=== PATIENT | female | born 1960 | race Caucasian/White ===

== ENCOUNTER 2016-09-19 12:19 | Emergency (ER) | payer OTHER ==
[~2016-09-19] VITALS: Ht 170.2 cm; Wt 90.7 kg
[2016-09-19] MEDS ORDERED: methylPREDNISolone INJ 125 MG/2 ML VIAL (J2930) As Ordered ONE (13:21)
[2016-09-19] MEDS ORDERED: IPRATROPIUM 0.5MG/ALBUTEROL 2.5MG INH SOL UD 3ML (DUONEB)(J7620) As Ordered ONE (13:26)
--- NOTE | 2016-09-19 13:38 | REP ---
Chest x-ray: Two views. History: Shortness of breath. . Comparison study: August 14, 2016 . Findings: The lungs are well inflated and free of infiltrate. The pleural angles are sharp. The heart size is normal. Pulmonary vasculature is not increased. No significant bony abnormality is seen. Impression: Negative chest x-ray. Signed by Abebe Plummer MD 09/19/2016 01:30 P
[2016-09-19 14:11] LABS: BASO # 0.2 K/mm3 (0.0-0.2); EOS # 0.4 K/mm3 (0.0-0.50); EOS % 4.1 % (0.0-3.0); LARGE UNSTAINED CELL # 0.3 K/mm3 (0.0-0.4); LARGE UNSTAINED CELL % 3.3 % (0.0-4.0); MEAN CORPUSCULAR HEMOGLOBIN 30.1 pg (27.0-33.0); MEAN CORPUSCULAR HGB CONC 33.9 g/dl (32.0-36.5); MEAN CORPUSCULAR VOLUME 88.6 fl (80.0-96.0); MONO # 0.5 K/mm3 (0.0-0.8); MONO % 5.9 % (0.0-5.0); NEUTROPHILS # 4.5 K/mm3 (1.8-7.7); NEUTROPHILS % 52.6 % (36.0-66.0); PLATELET COUNT, AUTOMATED 428 k/mm3 (150-450); WHITE BLOOD COUNT 8.5 K/mm3 (4.0-10.0)
[2016-09-19 14:29] LABS: ANION GAP 10 MEQ/L (8-16); BLOOD UREA NITROGEN 12 MG/DL (7-18); CARBON DIOXIDE LEVEL 28 MEQ/L (21-32); CHLORIDE LEVEL 105 MEQ/L (98-107); CREATININE FOR GFR 0.74 MG/DL (0.55-1.02); GLOMERULAR FILTRATION RATE > 60.0 (>51); GLUCOSE, FASTING 120 MG/DL (70-105); POTASSIUM SERUM 3.8 MEQ/L (3.5-5.1); SODIUM LEVEL 143 MEQ/L (136-145)
[2016-09-19] MEDS ORDERED: ADVAIR DISKUS 250/50 INH PWD INH ONE (14:30)
--- NOTE | 2016-09-19 15:01 | EDDOCDS ---
Nurse's Notes [facility] Name: Oxana Vazquez Age: 55 yrs Sex: Female : 1960 Arrival Date: 09/19/2016 Time: 12:19 Bed I2 / M2 Private MD: RHIANNON [facility] Diagnosis: Unspecified asthma with (acute) exacerbation;Shortness of breath;Wheezing Presentation: 09/19 12:25 Presenting complaint: Patient states: shortness of breath since during the past night. kr3 No longer has any medications because insurance will not pay. Adult Sepsis Screening: The patient does not have new or worsening altered mentation. Patient's respiratory rate is less than 22. Systolic blood pressure is greater than 100. Patient has a qSOFA score of 0- Negative Sepsis Screen. Suicide/Homicide risk assessment- the patient denies having any suicidal and/or homicidal ideations and does not present with any other emotional, behavioral or mental health complaints. 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 Transition of care: patient was not received from another setting of care. 12:25 Acuity: ANABEL Level 3 kr3 12:25 Method Of Arrival: Walkin/Carried/Asstd kr3 Triage Assessment: 12:28 General: Appears comfortable, Behavior is cooperative. Pain: Denies pain. HIV screening kr3 NA for this visit Offered previously. Neurological: Level of Consciousness is awake, alert. Respiratory: Onset: The symptoms/episode began/occurred today, Airway is patent Respiratory effort is labored, Reports shortness of breath. Derm: Skin is pink, warm & dry. 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 Effexor 150mg Oral daily 2. hydroxyzine HCl 25 mg Oral tab 1 tab 3 times per day 3. tramadol 50 mg Oral tab 1 tab every 4-6 hours as needed, at night 4. trazodone 100mg Oral once daily 5. Zyrtec 10 mg Oral tab 1 tab once daily 6. docusate 100mg twice a day - PMHx: Anxiety; Asthma; Depression; Hypertension; insomnia; Chronic Back pain; - PSHx: Tonsillectomy; Cholecystectomy; Hysterectomy; - Social history: Smoking status: Patient states former smoker of tobacco. No barriers to communication noted, The patient speaks fluent Spanish, Speaks appropriately for age. - Family history: Not pertinent. - : The pt / caregiver states he / she is not on anticoagulants. Home medication list is obtained from the patient. - Exposure Risk Screening:: None identified. Screenin:38 Screening information is obtained from the patient. Fall risk: No risks identified. dls Assistance ADL's: requires no assistance with activities of daily living. Abuse/DV Screen: The patient / caregiver reports he/she is: not in a situation that causes fear, pain or injury. Nutritional screening: No deficits noted. Advance Directives: Currently, there is no health care proxy. There is no active DNR order. There is no living will. There is no Power of Accounts Receivable Processor. Advance directive information has not previously been placed in an [facility] medical record. home support is adequate. Assessment: 13:45 General: Appears in no apparent distress, well developed, well nourished, well groomed, dls Behavior is cooperative. Pain: Denies pain. Neurological: No deficits noted. EENT: No deficits noted. Cardiovascular: No deficits noted. Respiratory: Airway is patent Respiratory effort is even, unlabored, Respiratory pattern is regular, symmetrical, Breath sounds are diminished bilaterally. GI: No deficits noted. : No deficits noted. Derm: No deficits noted. Musculoskeletal: No deficits noted. 13:48 Respiratory: Breath sounds with wheezes bilaterally. dls 14:37 General: Appears in no apparent distress, Behavior is appropriate for age, cooperative. mb9 Respiratory: Airway is patent Respiratory effort is even, unlabored, Breath sounds are diminished bilaterally. Vital Signs: 12:21 BP 152 / 89; Pulse 94; Resp 18 S; Temp 98.4(O); Pulse Ox 95% on R/A; Weight 90.72 kg gr2 (R); Height 5 ft. 7 in. (170.18 cm) (R); Pain 3/10; 14:48 BP 132 / 82; Pulse 81; Resp 18; Temp 97.8(O); Pulse Ox 97% on R/A; Pain 0/10; ct3 12:21 Body Mass Index 31.32 (90.72 kg, 170.18 cm) 2 Vitals: 12:21 Log In Time: September 19, 2016 at 12:21. gr2 ED Course: 12:20 Patient visited by Candice Rodrigez. gr2 12:20 Patient moved to Waiting gr2 12:21 [facility] is Private Physician. gr2 12:23 Patient visited by Candice Rodrigez. gr2 12:23 Patient moved to Pre RCE gr2 12:26 Triage Initiated kr3 12:55 Patient moved to Triage 2 ml6 13:02 [facility]. dt4 13:02 Sofya Cabrera MD is Attending Physician. dt4 13:02 Patient visited by Valeria Gray PA-C. dt4 13:14 Jyothi Eid, DANAY is Primary Nurse. jam1 13:14 Patient moved to I2 / M2 jam1 13:38 The patient / caregiver is instructed regarding the plan of care and ED course. Patient dls has correct armband on for positive identification. Bed in low position. Call light in reach. 13:38 Inserted saline lock: 20 gauge in left antecubital area. dls 13:38 No procedures done that require assistance. dls 14:01 Patient visited by Lizzy Canseco PCA. ct3 14:06 BNP Sent. dls 14:06 Basic Metabolic Profile Sent. dls 14:06 CBC with Diff Sent. dls 14:07 Chest, 2 View (pa\E\lat) Returned. EDMS 14:36 Patient visited by Perry Vasquez RN. mb9 14:56 Discontinued IV lock intact, bleeding controlled, pressure dressing applied, No dls redness/swelling at site. Administered Medications: 13:28 Drug: Albuterol-Ipratropium 3 ml [ipratropium-albuterol 0.5 mg-3 mg(2.5 mg base)/3 mL lb nebulization soln (3 mL)] Route: Inhalation; 13:38 Follow up: Response: Nebulizer completed; No significant change. lb 13:37 Drug: Solu-MEDROL 125 mg [Solu-Medrol 500 mg intravenous solution (125 mg)] Route: IVP; dls Site: left antecubital; 14:37 Drug: Advair Inhaler 250 mcg-50 mcg/Dose 1 inhalations Route: Inhalation; mb9 RT: 13:29 Initial Med Neb Given as ordered Patient was instructed and evaluated on procedure lb Patient tolerated procedure well without adverse effect. Respiratory: Breath sounds are clear bilaterally. in left posterior upper lobe, right posterior upper lobe, left posterior lower lobe, right posterior middle lobe and right posterior lower lobe. Order Results: Lab Order: CBC with Diff; SPEC'M 09/19/16 14:04 Test: WHITE BLOOD COUNT; Value: 8.5; Range: 4.0-10.0; Units: K/mm3; Status: F Test: RED BLOOD COUNT; Value: 4.90; Range: 4.00-5.40; Units: M/mm3; Status: F Test: HEMOGLOBIN; Value: 14.7; Range: 12.0-16.0; Units: g/dl; Status: F Test: HEMATOCRIT; Value: 43.4; Range: 36.0-47.0; Units: %; Status: F Test: MEAN CORPUSCULAR VOLUME; Value: 88.6; Range: 80.0-96.0; Units: fl; Status: F Test: MEAN CORPUSCULAR HEMOGLOBIN; Value: 30.1; Range: 27.0-33.0; Units: pg; Status: F Test: MEAN CORPUSCULAR HGB CONC; Value: 33.9; Range: 32.0-36.5; Units: g/dl; Status: F Test: RED CELL DISTRIBUTION WIDTH; Value: 13.0; Range: 11.5-14.5; Units: %; Status: F Test: PLATELET COUNT, AUTOMATED; Value: 428; Range: 150-450; Units: k/mm3; Status: F Test: NEUTROPHILS %; Value: 52.6; Range: 36.0-66.0; Units: %; Status: F Test: LYMPH %; Value: 32.0; Range: 24.0-44.0; Units: %; Status: F Test: MONO %; Value: 5.9; Range: 0.0-5.0; Abnormal: Above high normal; Units: %; Status: F Test: EOS %; Value: 4.1; Range: 0.0-3.0; Abnormal: Above high normal; Units: %; Status: F Test: BASO %; Value: 2.0; Range: 0.0-1.0; Abnormal: Above high normal; Units: %; Status: F Test: LARGE UNSTAINED CELL %; Value: 3.3; Range: 0.0-4.0; Units: %; Status: F Test: NEUTROPHILS #; Value: 4.5; Range: 1.8-7.7; Units: K/mm3; Status: F Test: LYMPH #; Value: 3.0; Range: 1.5-4.5; Units: K/mm3; Status: F Test: MONO #; Value: 0.5; Range: 0.0-0.8; Units: K/mm3; Status: F Test: EOS #; Value: 0.4; Range: 0.0-0.50; Units: K/mm3; Status: F Test: BASO #; Value: 0.2; Range: 0.0-0.2; Units: K/mm3; Status: F Test: LARGE UNSTAINED CELL #; Value: 0.3; Range: 0.0-0.4; Units: K/mm3; Status: F Lab Order: Basic Metabolic Profile; [facility]' 09/19/16 14:04 Test: GLUCOSE, FASTING; Value: 120; Range: 70-105; Abnormal: Above high normal; Units: MG/DL; Status: F Test: BLOOD UREA NITROGEN; Value: 12; Range: 7-18; Units: MG/DL; Status: F Test: CREATININE FOR GFR; Value: 0.74; Range: 0.55-1.02; Units: MG/DL; Status: F Test: GLOMERULAR FILTRATION RATE; Value: > 60.0; Range: >51; Status: F Test: SODIUM LEVEL; Value: 143; Range: 136-145; Units: MEQ/L; Status: F Test: POTASSIUM SERUM; Value: 3.8; Range: 3.5-5.1; Units: MEQ/L; Status: F Test: CHLORIDE LEVEL; Value: 105; Range: 98-107; Units: MEQ/L; Status: F Test: CARBON DIOXIDE LEVEL; Value: 28; Range: 21-32; Units: MEQ/L; Status: F Test: ANION GAP; Value: 10; Range: 8-16; Units: MEQ/L; Status: F Test: CALCIUM LEVEL; Value: 9.0; Range: 8.5-10.1; Units: MG/DL; Status: F Test Note: ; Units are mL/min/1.73 m2 Chronic Kidney Disease Staging per NKF: Stage I & II GFR >=60 Normal to Mildly Decreased Stage III GFR 30-59 Moderately Decreased Stage IV GFR 15-29 Severely Decreased Stage V GFR <15 Very Little GFR Left ESRD GFR <15 on RAD TECHNOLOGIST Lab Order: BNP; KO 09/19/16 14:04 Test: BRAIN NATRIURETIC PEPTIDE; Value: 17.6; Range: <100; Units: PG/ML; Status: F Radiology Order: Chest, 2 View (pa\E\lat) Test: Chest, 2 View (pa\E\lat) REASON FOR EXAMINATION: Shortness of Breath; Chest x-ray: Two views.; ; History: Shortness of breath. .; ; Comparison study: August 14, 2016 .; ; Findings: The lungs are well inflated and free of infiltrate. The pleural; angles are sharp. The heart size is normal. Pulmonary vasculature is not; increased. No significant bony abnormality is seen.; ; Impression:; ; Negative chest x-ray.; ; ; Signed by; Abebe Plummer MD 09/19/2016 01:30 P; Outcome: 14:47 Discharge ordered by Provider. dt4 14:57 Discharge Assessment: Patient awake, alert and oriented x 3. No cognitive and/or dls functional deficits noted. Patient verbalized understanding of disposition instructions. patient administered narcotics - no. The following High Risk Discharge criteria are identified: None. Discharged to home ambulatory. Condition: good Condition: stable. Discharge instructions given to patient, Instructed on discharge instructions, follow up and referral plans. medication usage, Demonstrated understanding of instructions, medications, Pt was receptive of discharge instructions/ teaching. Prescriptions given X 1. No special radiology studies were completed. Property sent home with patient. 15:00 Patient left the ED. dls Signatures: Dispatcher [employer] EDMS Jyothi Eid, DANAY RN dls Leticia Watts, SHELLAC POLISHER SHELLAC POLISHER jam1 Miranda Naranjo KathleenRN RN [id number] Varun Gary RN RN ml6 Lizzy Canseco, SHELLAC POLISHER SHELLAC POLISHER ct3 Candice Rodrigez gr2 Valeria Gray, PA-C PA-C dt4 Perry Vasquez,DANAY RN mb9 MTDD
--- NOTE | 2016-09-19 15:01 | EDDOCDS ---
Physician Documentation [facility] Name: Oxana Vazquez Age: 55 yrs Sex: Female : 1960 Arrival Date: 09/19/2016 Time: 12:19 Bed I2 / M2 Private MD: RHIANNON [facility] Disposition: 09/19/16 14:47 Discharged to Home/Self Care. Impression: Unspecified asthma with (acute) exacerbation, Shortness of breath, Wheezing. - Condition is Stable. - Discharge Instructions: Asthma, Adult, Shortness of Breath. - Prescriptions for Prednisone 20 mg Oral Tablet - take 3 tablets by ORAL route once daily for 5 days start on 09/20/16; 15 tablet. - Medication Reconciliation, Local Pharmacy Hours form. - Follow up: Emergency Department; When: As needed; Reason: Worsening of conditions. Follow up: Private Physician; When: 2 - 3 days; Reason: Wound/Symptom Recheck, Recheck today's complaints, Continuance of care. - Problem is new. - Symptoms have improved. Historical: - Allergies: NSAIDS (Non-Steroidal Anti-Inflammatory Drug); - Home Meds: 1. Effexor 150mg Oral daily 2. hydroxyzine HCl 25 mg Oral tab 1 tab 3 times per day 3. tramadol 50 mg Oral tab 1 tab every 4-6 hours as needed, at night 4. trazodone 100mg Oral once daily 5. Zyrtec 10 mg Oral tab 1 tab once daily 6. docusate 100mg twice a day - PMHx: Anxiety; Asthma; Depression; Hypertension; insomnia; Chronic Back pain; - PSHx: Tonsillectomy; Cholecystectomy; Hysterectomy; - Social history: Smoking status: Patient states former smoker of tobacco. No barriers to communication noted, The patient speaks fluent Canadian, Speaks appropriately for age. - Family history: Not pertinent. - : The pt / caregiver states he / she is not on anticoagulants. Home medication list is obtained from the patient. - Exposure Risk Screening:: None identified. 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 7 in. (170.18 cm) (R); Pain 3/10; 14:48 BP 132 / 82; Pulse 81; Resp 18; Temp 97.8(O); Pulse Ox 97% on R/A; Pain 0/10; ct3 12:21 Body Mass Index 31.32 (90.72 kg, 170.18 cm) gr2 MDM: 13:03 ECG WITH READING ER PHYS+CARDIAG ordered. EDMS 13:17 IV Saline Lock ordered. dt4 13:17 Solu-MEDROL 125 mg IVP once ordered. dt4 13:17 Albuterol-Ipratropium 3 ml Inhalation once ordered. dt4 13:17 Call Respiratory ordered. dt4 13:18 Call Respiratory complete. ct3 13:18 CBC with Diff Ordered. EDMS 13:18 Basic Metabolic Profile Ordered. EDMS 13:18 BNP Ordered. EDMS 13:18 Chest, 2 View (pa\E\lat) Ordered. EDMS 13:54 Advair Inhaler 250 mcg-50 mcg/Dose 1 inhalations Inhalation once ordered. dt4 Administered Medications: 13:28 Drug: Albuterol-Ipratropium 3 ml [ipratropium-albuterol 0.5 mg-3 mg(2.5 mg base)/3 mL lb nebulization soln (3 mL)] Route: Inhalation; 13:38 Follow up: Response: Nebulizer completed; No significant change. lb 13:37 Drug: Solu-MEDROL 125 mg [Solu-Medrol 500 mg intravenous solution (125 mg)] Route: IVP; dls Site: left antecubital; 14:37 Drug: Advair Inhaler 250 mcg-50 mcg/Dose 1 inhalations Route: Inhalation; mb9 Signatures: Dispatcher [employer] EDJyotih Fan RN RN dls Lisa Bruner RN RN kr3 Lizzy Canseco, MARY ANNE COLOR ARTIST ct3 Valeria Gray PA-C PALuizC dt4 Miranda Naranjo Michael RN mb9 MTDD
--- NOTE | 2016-09-19 19:18 | ECGEPIP ---
Stationary ECG Study [facility] - ED Test Date: 2016-09-19 Pat Name: KIM CAZARES Department: Room: - Gender: F Investment Representative: roberto : 1960 Requested By: JOSUE Ledesma PA-C Order Number: [id number] Reading MD: Pepe Grace Measurements Intervals [place] Rate: 89 P: 38 [place]: 148 QRS: 51 QRSD: 75 T: 60 QT: 377 QTc: 459 Interpretive Statements SINUS RHYTHM POSSIBLE LAE PRIOR INFERIOR INFARCT NO PRIORS Electronically Signed On 09-19-2016 19:18:32 EST by Pepe Grace
--- NOTE | 2016-09-21 16:01 | EDDOCDS ---
Physician Documentation [facility] Name: Oxana Vazquez Age: 55 yrs Sex: Female : 1960 Arrival Date: 09/19/2016 Time: 12:19 Bed I2 / M2 Private MD: RHIANNON [facility] Disposition: 09/19/16 14:47 Discharged to Home/Self Care. Impression: Unspecified asthma with (acute) exacerbation, Shortness of breath, Wheezing. - Condition is Stable. - Discharge Instructions: Asthma, Adult, Shortness of Breath. - Prescriptions for Prednisone 20 mg Oral Tablet - take 3 tablets by ORAL route once daily for 5 days start on 09/20/16; 15 tablet. - Medication Reconciliation, Local Pharmacy Hours form. - Follow up: Emergency Department; When: As needed; Reason: Worsening of conditions. Follow up: Private Physician; When: 2 - 3 days; Reason: Wound/Symptom Recheck, Recheck today's complaints, Continuance of care. - Problem is new. - Symptoms have improved. Historical: - Allergies: NSAIDS (Non-Steroidal Anti-Inflammatory Drug); - Home Meds: 1. Effexor 150mg Oral daily 2. hydroxyzine HCl 25 mg Oral tab 1 tab 3 times per day 3. tramadol 50 mg Oral tab 1 tab every 4-6 hours as needed, at night 4. trazodone 100mg Oral once daily 5. Zyrtec 10 mg Oral tab 1 tab once daily 6. docusate 100mg twice a day - PMHx: Anxiety; Asthma; Depression; Hypertension; insomnia; Chronic Back pain; - PSHx: Tonsillectomy; Cholecystectomy; Hysterectomy; - Social history: Smoking status: Patient states former smoker of tobacco. No barriers to communication noted, The patient speaks fluent Portuguese, Speaks appropriately for age. - Family history: Not pertinent. - : The pt / caregiver states he / she is not on anticoagulants. Home medication list is obtained from the patient. - Exposure Risk Screening:: None identified. 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 7 in. (170.18 cm) (R); Pain 3/10; 14:48 BP 132 / 82; Pulse 81; Resp 18; Temp 97.8(O); Pulse Ox 97% on R/A; Pain 0/10; ct3 12:21 Body Mass Index 31.32 (90.72 kg, 170.18 cm) gr2 MDM: 13:03 ECG WITH READING ER PHYS+CARDIAG ordered. EDMS 13:17 IV Saline Lock ordered. dt4 13:17 Solu-MEDROL 125 mg IVP once ordered. dt4 13:17 Albuterol-Ipratropium 3 ml Inhalation once ordered. dt4 13:17 Call Respiratory ordered. dt4 13:18 Call Respiratory complete. ct3 13:18 CBC with Diff Ordered. EDMS 13:18 Basic Metabolic Profile Ordered. EDMS 13:18 BNP Ordered. EDMS 13:18 Chest, 2 View (pa\E\lat) Ordered. EDMS 13:54 Advair Inhaler 250 mcg-50 mcg/Dose 1 inhalations Inhalation once ordered. dt4 15:10 [facility] Payment Agreement was scanned into [employer] and attached to record. lg 15:37 Financial registration complete. gjb 21:42 T-Sheet-- Draft Copy was scanned into [employer] and attached to record. klr 09/20 11:22 ECG/EKG was scanned into [employer] and attached to record. gb Administered Medications: 09/19 13:28 Drug: Albuterol-Ipratropium 3 ml [ipratropium-albuterol 0.5 mg-3 mg(2.5 mg base)/3 mL lb nebulization soln (3 mL)] Route: Inhalation; 13:38 Follow up: Response: Nebulizer completed; No significant change. lb 13:37 Drug: Solu-MEDROL 125 mg [Solu-Medrol 500 mg intravenous solution (125 mg)] Route: IVP; dls Site: left antecubital; 14:37 Drug: Advair Inhaler 250 mcg-50 mcg/Dose 1 inhalations Route: Inhalation; mb9 Signatures: Dispatcher [employer] EDMS Jyothi Eid RN RN dls Deneen iKm, Reg Reg gb Seth Fernandez, Reg Reg lg Lisa Bruner RN RN [id number] Lizzy Canseco, DIET TECH DIET TECH ct3 Valeria Gray, PALuizC PALuizC dt4 Wendy Uribe Kathie klr Bickel, Lindsay lb Belles, Michael RN mb9 The chart was reviewed and I authenticate all verbal orders and agree with the evaluation and treatment provided.Attachments: 15:10 [facility] Payment Agreement lg 21:42 T-Sheet-- Draft Copy klr 09/20 11:22 ECG/EKG gb Chart Complete MTDD
--- NOTE | 2016-09-21 16:01 | EDDOCDS ---
Physician Documentation [facility] Name: Oxana Vazquez Age: 55 yrs Sex: Female : 1960 Arrival Date: 09/19/2016 Time: 12:19 Bed I2 / M2 [facility] Disposition: 09/19/16 14:47 Discharged to Home/Self Care. Impression: Unspecified asthma with (acute) exacerbation, Shortness of breath, Wheezing. - Condition is Stable. - Discharge Instructions: Asthma, Adult, Shortness of Breath. - Prescriptions for Prednisone 20 mg Oral Tablet - take 3 tablets by ORAL route once daily for 5 days start on 09/20/16; 15 tablet. - Medication Reconciliation, Local Pharmacy Hours form. - Follow up: Emergency Department; When: As needed; Reason: Worsening of conditions. Follow up: Private Physician; When: 2 - 3 days; Reason: Wound/Symptom Recheck, Recheck today's complaints, Continuance of care. - Problem is new. - Symptoms have improved. Historical: - Allergies: NSAIDS (Non-Steroidal Anti-Inflammatory Drug); - Home Meds: 1. Effexor 150mg Oral daily 2. hydroxyzine HCl 25 mg Oral tab 1 tab 3 times per day 3. tramadol 50 mg Oral tab 1 tab every 4-6 hours as needed, at night 4. trazodone 100mg Oral once daily 5. Zyrtec 10 mg Oral tab 1 tab once daily 6. docusate 100mg twice a day - PMHx: Anxiety; Asthma; Depression; Hypertension; insomnia; Chronic Back pain; - PSHx: Tonsillectomy; Cholecystectomy; Hysterectomy; - Social history: Smoking status: Patient states former smoker of tobacco. No barriers to communication noted, The patient speaks fluent Swazi, Speaks appropriately for age. - Family history: Not pertinent. - : The pt / caregiver states he / she is not on anticoagulants. Home medication list is obtained from the patient. - Exposure Risk Screening:: None identified. 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 7 in. (170.18 cm) (R); Pain 3/10; 14:48 BP 132 / 82; Pulse 81; Resp 18; Temp 97.8(O); Pulse Ox 97% on R/A; Pain 0/10; ct3 12:21 Body Mass Index 31.32 (90.72 kg, 170.18 cm) gr2 MDM: 13:03 ECG WITH READING ER PHYS+CARDIAG ordered. EDMS 13:17 IV Saline Lock ordered. dt4 13:17 Solu-MEDROL 125 mg IVP once ordered. dt4 13:17 Albuterol-Ipratropium 3 ml Inhalation once ordered. dt4 13:17 Call Respiratory ordered. dt4 13:18 Call Respiratory complete. ct3 13:18 CBC with Diff Ordered. EDMS 13:18 Basic Metabolic Profile Ordered. EDMS 13:18 BNP Ordered. EDMS 13:18 Chest, 2 View (pa\E\lat) Ordered. EDMS 13:54 Advair Inhaler 250 mcg-50 mcg/Dose 1 inhalations Inhalation once ordered. dt4 15:10 [facility] Payment Agreement was scanned into [employer] and attached to record. lg 15:37 Financial registration complete. gjb 21:42 T-Sheet-- Draft Copy was scanned into [employer] and attached to record. klr 09/20 11:22 ECG/EKG was scanned into [employer] and attached to record. gb Administered Medications: 09/19 13:28 Drug: Albuterol-Ipratropium 3 ml [ipratropium-albuterol 0.5 mg-3 mg(2.5 mg base)/3 mL lb nebulization soln (3 mL)] Route: Inhalation; 13:38 Follow up: Response: Nebulizer completed; No significant change. lb 13:37 Drug: Solu-MEDROL 125 mg [Solu-Medrol 500 mg intravenous solution (125 mg)] Route: IVP; dls Site: left antecubital; 14:37 Drug: Advair Inhaler 250 mcg-50 mcg/Dose 1 inhalations Route: Inhalation; mb9 Signatures: Dispatcher [employer] EDMS Jyothi Eid RN RN dls Deneen Kim, Reg Reg gb Seth Fernandez, Reg Reg lg Lisa Bruner RN RN [id number] Lizzy Canseco, COLLAR STARCHER COLLAR STARCHER ct3 Valeria Gray, PALuizC PALuizC dt4 Wendy Uribe Kathie klr Bickel, Lindsay lb Belles, Michael RN mb9 The chart was reviewed and I authenticate all verbal orders and agree with the evaluation and treatment provided.Attachments: 15:10 [facility] Payment Agreement lg 21:42 T-Sheet-- Draft Copy klr 09/20 11:22 ECG/EKG gb Chart Complete MTDD
--- NOTE | 2016-09-21 16:01 | EDDOCDS ---
Nurse's Notes [facility] Name: Oxana Cazares Age: 55 yrs Sex: Female : 1960 Arrival Date: 09/19/2016 Time: 12:19 Bed I2 / M2 Private MD: RHIANNON [facility] Diagnosis: Unspecified asthma with (acute) exacerbation;Shortness of breath;Wheezing Presentation: 09/19 12:25 Presenting complaint: Patient states: shortness of breath since during the past night. kr3 No longer has any medications because insurance will not pay. Adult Sepsis Screening: The patient does not have new or worsening altered mentation. Patient's respiratory rate is less than 22. Systolic blood pressure is greater than 100. Patient has a qSOFA score of 0- Negative Sepsis Screen. Suicide/Homicide risk assessment- the patient denies having any suicidal and/or homicidal ideations and does not present with any other emotional, behavioral or mental health complaints. 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 Transition of care: patient was not received from another setting of care. 12:25 Acuity: ANABEL Level 3 kr3 12:25 Method Of Arrival: Walkin/Carried/Asstd kr3 Triage Assessment: 12:28 General: Appears comfortable, Behavior is cooperative. Pain: Denies pain. HIV screening kr3 NA for this visit Offered previously. Neurological: Level of Consciousness is awake, alert. Respiratory: Onset: The symptoms/episode began/occurred today, Airway is patent Respiratory effort is labored, Reports shortness of breath. Derm: Skin is pink, warm & dry. ILLUMINATOR: 12:28 LMP N/A - Hysterectomy kr3 Historical: - Allergies: NSAIDS (Non-Steroidal Anti-Inflammatory Drug); - Home Meds: 1. Effexor 150mg Oral daily 2. hydroxyzine HCl 25 mg Oral tab 1 tab 3 times per day 3. tramadol 50 mg Oral tab 1 tab every 4-6 hours as needed, at night 4. trazodone 100mg Oral once daily 5. Zyrtec 10 mg Oral tab 1 tab once daily 6. docusate 100mg twice a day - PMHx: Anxiety; Asthma; Depression; Hypertension; insomnia; Chronic Back pain; - PSHx: Tonsillectomy; Cholecystectomy; Hysterectomy; - Social history: Smoking status: Patient states former smoker of tobacco. No barriers to communication noted, The patient speaks fluent Mohawk, Speaks appropriately for age. - Family history: Not pertinent. - : The pt / caregiver states he / she is not on anticoagulants. Home medication list is obtained from the patient. - Exposure Risk Screening:: None identified. Screenin:38 Screening information is obtained from the patient. Fall risk: No risks identified. dls Assistance ADL's: requires no assistance with activities of daily living. Abuse/DV Screen: The patient / caregiver reports he/she is: not in a situation that causes fear, pain or injury. Nutritional screening: No deficits noted. Advance Directives: Currently, there is no health care proxy. There is no active DNR order. There is no living will. There is no Power of [place]. Advance directive information has not previously been placed in an [facility] medical record. home support is adequate. Assessment: 13:45 General: Appears in no apparent distress, well developed, well nourished, well groomed, dls Behavior is cooperative. Pain: Denies pain. Neurological: No deficits noted. EENT: No deficits noted. Cardiovascular: No deficits noted. Respiratory: Airway is patent Respiratory effort is even, unlabored, Respiratory pattern is regular, symmetrical, Breath sounds are diminished bilaterally. GI: No deficits noted. : No deficits noted. Derm: No deficits noted. Musculoskeletal: No deficits noted. 13:48 Respiratory: Breath sounds with wheezes bilaterally. dls 14:37 General: Appears in no apparent distress, Behavior is appropriate for age, cooperative. mb9 Respiratory: Airway is patent Respiratory effort is even, unlabored, Breath sounds are diminished bilaterally. Vital Signs: 12:21 BP 152 / 89; Pulse 94; Resp 18 S; Temp 98.4(O); Pulse Ox 95% on R/A; Weight 90.72 kg gr2 (R); Height 5 ft. 7 in. (170.18 cm) (R); Pain 3/10; 14:48 BP 132 / 82; Pulse 81; Resp 18; Temp 97.8(O); Pulse Ox 97% on R/A; Pain 0/10; ct3 12:21 Body Mass Index 31.32 (90.72 kg, 170.18 cm) 2 Vitals: 12:21 Log In Time: September 19, 2016 at 12:21. gr2 ED Course: 12:20 Patient visited by Candice Rodrigez. gr2 12:20 Patient moved to Waiting gr2 12:21 [facility] is Private Physician. gr2 12:23 Patient visited by Candice Rodrigez. gr2 12:23 Patient moved to Pre RCE gr2 12:26 Triage Initiated kr3 12:55 Patient moved to Triage 2 ml6 13:02 Valeria Gray PA-C is PHCP. dt4 13:02 Sofya Cabrera MD is Attending Physician. dt4 13:02 Patient visited by Valeria Gray PA-C. dt4 13:14 Jyothi Eid, DANAY is Primary Nurse. jam1 13:14 Patient moved to I2 / M2 jam1 13:38 The patient / caregiver is instructed regarding the plan of care and ED course. Patient dls has correct armband on for positive identification. Bed in low position. Call light in reach. 13:38 Inserted saline lock: 20 gauge in left antecubital area. dls 13:38 No procedures done that require assistance. dls 14:01 Patient visited by Lizzy Canseco PCA. ct3 14:06 BNP Sent. dls 14:06 Basic Metabolic Profile Sent. dls 14:06 CBC with Diff Sent. dls 14:07 Chest, 2 View (pa\E\lat) Returned. EDMS 14:36 Patient visited by Perry Vasquez RN. mb9 14:56 Discontinued IV lock intact, bleeding controlled, pressure dressing applied, No dls redness/swelling at site. 15:10 [place] [place] was scanned into [employer] and attached to record. lg 19:48 EKG-ADULT Returned. EDMS 21:42 T-Sheet-- Draft Copy was scanned into [employer] and attached to record. klr 09/20 11:22 ECG/EKG was scanned into [employer] and attached to record. gb Administered Medications: 09/19 13:28 Drug: Albuterol-Ipratropium 3 ml [ipratropium-albuterol 0.5 mg-3 mg(2.5 mg base)/3 mL lb nebulization soln (3 mL)] Route: Inhalation; 13:38 Follow up: Response: Nebulizer completed; No significant change. lb 13:37 Drug: Solu-MEDROL 125 mg [Solu-Medrol 500 mg intravenous solution (125 mg)] Route: IVP; dls Site: left antecubital; 14:37 Drug: Advair Inhaler 250 mcg-50 mcg/Dose 1 inhalations Route: Inhalation; mb9 RT: 13:29 Initial Med Neb Given as ordered Patient was instructed and evaluated on procedure lb Patient tolerated procedure well without adverse effect. Respiratory: Breath sounds are clear bilaterally. in left posterior upper lobe, right posterior upper lobe, left posterior lower lobe, right posterior middle lobe and right posterior lower lobe. Order Results: Lab Order: CBC with Diff; SPEC'M 09/19/16 14:04 Test: WHITE BLOOD COUNT; Value: 8.5; Range: 4.0-10.0; Units: K/mm3; Status: F Test: RED BLOOD COUNT; Value: 4.90; Range: 4.00-5.40; Units: M/mm3; Status: F Test: HEMOGLOBIN; Value: 14.7; Range: 12.0-16.0; Units: g/dl; Status: F Test: HEMATOCRIT; Value: 43.4; Range: 36.0-47.0; Units: %; Status: F Test: MEAN CORPUSCULAR VOLUME; Value: 88.6; Range: 80.0-96.0; Units: fl; Status: F Test: MEAN CORPUSCULAR HEMOGLOBIN; Value: 30.1; Range: 27.0-33.0; Units: pg; Status: F Test: MEAN CORPUSCULAR HGB CONC; Value: 33.9; Range: 32.0-36.5; Units: g/dl; Status: F Test: RED CELL DISTRIBUTION WIDTH; Value: 13.0; Range: 11.5-14.5; Units: %; Status: F Test: PLATELET COUNT, AUTOMATED; Value: 428; Range: 150-450; Units: k/mm3; Status: F Test: NEUTROPHILS %; Value: 52.6; Range: 36.0-66.0; Units: %; Status: F Test: LYMPH %; Value: 32.0; Range: 24.0-44.0; Units: %; Status: F Test: MONO %; Value: 5.9; Range: 0.0-5.0; Abnormal: Above high normal; Units: %; Status: F Test: EOS %; Value: 4.1; Range: 0.0-3.0; Abnormal: Above high normal; Units: %; Status: F Test: BASO %; Value: 2.0; Range: 0.0-1.0; Abnormal: Above high normal; Units: %; Status: F Test: LARGE UNSTAINED CELL %; Value: 3.3; Range: 0.0-4.0; Units: %; Status: F Test: NEUTROPHILS #; Value: 4.5; Range: 1.8-7.7; Units: K/mm3; Status: F Test: LYMPH #; Value: 3.0; Range: 1.5-4.5; Units: K/mm3; Status: F Test: MONO #; Value: 0.5; Range: 0.0-0.8; Units: K/mm3; Status: F Test: EOS #; Value: 0.4; Range: 0.0-0.50; Units: K/mm3; Status: F Test: BASO #; Value: 0.2; Range: 0.0-0.2; Units: K/mm3; Status: F Test: LARGE UNSTAINED CELL #; Value: 0.3; Range: 0.0-0.4; Units: K/mm3; Status: F Lab Order: Basic Metabolic Profile; [facility]' 09/19/16 14:04 Test: GLUCOSE, FASTING; Value: 120; Range: 70-105; Abnormal: Above high normal; Units: MG/DL; Status: F Test: BLOOD UREA NITROGEN; Value: 12; Range: 7-18; Units: MG/DL; Status: F Test: CREATININE FOR GFR; Value: 0.74; Range: 0.55-1.02; Units: MG/DL; Status: F Test: GLOMERULAR FILTRATION RATE; Value: > 60.0; Range: >51; Status: F Test: SODIUM LEVEL; Value: 143; Range: 136-145; Units: MEQ/L; Status: F Test: POTASSIUM SERUM; Value: 3.8; Range: 3.5-5.1; Units: MEQ/L; Status: F Test: CHLORIDE LEVEL; Value: 105; Range: 98-107; Units: MEQ/L; Status: F Test: CARBON DIOXIDE LEVEL; Value: 28; Range: 21-32; Units: MEQ/L; Status: F Test: ANION GAP; Value: 10; Range: 8-16; Units: MEQ/L; Status: F Test: CALCIUM LEVEL; Value: 9.0; Range: 8.5-10.1; Units: MG/DL; Status: F Test Note: ; Units are mL/min/1.73 m2 Chronic Kidney Disease Staging per NKF: Stage I & II GFR >=60 Normal to Mildly Decreased Stage III GFR 30-59 Moderately Decreased Stage IV GFR 15-29 Severely Decreased Stage V GFR <15 Very Little GFR Left ESRD GFR <15 on MGMT SPECIALIST Lab Order: BNP; SPEC'M 09/19/16 14:04 Test: BRAIN NATRIURETIC PEPTIDE; Value: 17.6; Range: <100; Units: PG/ML; Status: F Radiology Order: EKG-ADULT Test: EKG-ADULT REASON FOR EXAMINATION: Shortness of Breath; Stationary ECG Study; [facility] - ED; ; Test Date: 2016-09-19; Pat Name: OXANA CAZARES Department:; Room: -; Gender: F 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 .; ; Comparison study: August 14, 2016 .; ; Findings: The lungs are well inflated and free of infiltrate. The pleural; angles are sharp. The heart size is normal. Pulmonary vasculature is not; increased. No significant bony abnormality is seen.; ; Impression:; ; Negative chest x-ray.; ; ; Signed by; Abebe Plummer MD 09/19/2016 01:30 P; Outcome: 14:47 Discharge ordered by Provider. dt4 14:57 Discharge Assessment: Patient awake, alert and oriented x 3. No cognitive and/or dls functional deficits noted. Patient verbalized understanding of disposition instructions. patient administered narcotics - no. The following High Risk Discharge criteria are identified: None. Discharged to home ambulatory. Condition: good Condition: stable. Discharge instructions given to patient, Instructed on discharge instructions, follow up and referral plans. medication usage, Demonstrated understanding of instructions, medications, Pt was receptive of discharge instructions/ teaching. Prescriptions given X 1. No special radiology studies were completed. Property sent home with patient. 15:00 Patient left the ED. dls Signatures: Dispatcher [employer] EDMS Jyothi Eid, RN RN dls Leticia Watts, SUPPLY MANAGER SUPPLY MANAGER jam1 Deneen Kim, Reg Reg gb Rebecca, Laciee, Reg Reg lg Miranda Naranjo Kathleen,RN RN kr3 Varun Gary RN RN ml6 Lizzy Canseco, SUPPLY MANAGER SUPPLY MANAGER ct3 Candice Rodrigez gr2 Valeria Gray, PAMarcy PA-Larry dt4 Perry VasquezRN RN mb9 Carlota Sanders Chart Complete MTDD
== END 2016-09-19 15:00 | disposition home or self-care (01) ==
LOC: M ED 12:19
DX: J45.901 Unspecified asthma with (acute) exacerbation (principal); R05 Cough; F41.9 Anxiety disorder, unspecified; F32.9 Major depressive disorder, single episode, unspecified; I10 Essential (primary) hypertension; G47.00 Insomnia, unspecified; M54.9 Dorsalgia, unspecified; Z87.891 Personal history of nicotine dependence; Z79.899 Other long term (current) drug therapy; Z88.6 Allergy status to analgesic agent
CPT/HCPCS: 36415; 71020; 80048; 83880; 85025; 93005; 94640; 96374; 99284; J2930

== ENCOUNTER 2016-10-22 23:10 | Emergency (ER) | payer OTHER ==
[2016-10-23] MEDS ORDERED: methylPREDNISolone INJ 125 MG/2 ML VIAL (J2930) As Ordered ONE (00:05)
[2016-10-23] MEDS ORDERED: IPRATROPIUM 0.5MG/ALBUTEROL 2.5MG INH SOL UD 3ML (DUONEB)(J7620) As Ordered ONE (00:20)
[2016-10-23 00:28] LABS: MEAN CORPUSCULAR HEMOGLOBIN 30.6 pg (27.0-33.0); MEAN CORPUSCULAR HGB CONC 33.7 g/dl (32.0-36.5); MEAN CORPUSCULAR VOLUME 90.7 fl (80.0-96.0); PLATELET COUNT, AUTOMATED 474 k/mm3 (150-450); RED CELL DISTRIBUTION WIDTH 12.3 % (11.5-14.5); WHITE BLOOD COUNT 10.2 K/mm3 (4.0-10.0)
[2016-10-23 00:33] LABS: BASO # 0.1 K/mm3 (0.0-0.2); BASO % 0.9 % (0.0-1.0); EOS # 0.5 K/mm3 (0.0-0.50); EOS % 5.2 % (0.0-3.0); LARGE UNSTAINED CELL # 0.2 K/mm3 (0.0-0.4); LARGE UNSTAINED CELL % 1.8 % (0.0-4.0); LYMPH # 3.2 K/mm3 (1.5-4.5); LYMPH % 31.5 % (24.0-44.0); MONO # 0.6 K/mm3 (0.0-0.8); MONO % 5.9 % (0.0-5.0); NEUTROPHILS # 5.6 K/mm3 (1.8-7.7); NEUTROPHILS % 54.8 % (36.0-66.0)
[2016-10-23 00:43] LABS: ANION GAP 7 MEQ/L (8-16); BLOOD UREA NITROGEN 13 MG/DL (7-18); CALCIUM LEVEL 9.3 MG/DL (8.5-10.1); CARBON DIOXIDE LEVEL 31 MEQ/L (21-32); CHLORIDE LEVEL 104 MEQ/L (98-107); CREATININE FOR GFR 0.83 MG/DL (0.55-1.02); GLOMERULAR FILTRATION RATE > 60.0 (>51); GLUCOSE, FASTING 146 MG/DL (70-105); POTASSIUM SERUM 3.9 MEQ/L (3.5-5.1); SODIUM LEVEL 142 MEQ/L (136-145)
--- NOTE | 2016-10-23 02:06 | EDDOCDS ---
Physician Documentation [facility] Name: Oxana Vazquez Age: 55 yrs Sex: Female : 1960 Arrival Date: 10/22/2016 Time: 23:10 Bed I3 / M3 Private MD: Federico White R. Disposition: 10/23/16 01:58 Discharged to Home/Self Care. Impression: Asthma, Acute bronchitis. - Condition is Stable. - Discharge Instructions: Acute Bronchitis, Asthma, Adult. - Prescriptions for Prednisone 20 mg Oral Tablet - take 2 tablet by ORAL route once daily for 5 days; 10 tablet. Zithromax 250 mg Oral Tablet - take 1 tablet by ORAL route once daily start tomorrow; 4 tablet. Albuterol Sulfate 90 mcg/actuation Inhalation HFA Aerosol Inhaler - inhale 2 puff by INHALATION route every 4 hours As needed; 1 Inhaler. - Medication Reconciliation, Local Pharmacy Hours form. - Follow up: Federico White; When: 2 - 3 days; Reason: Recheck today's complaints, Continuance of care. - Problem is new. - Symptoms have improved. Historical: - Allergies: NSAIDS (Non-Steroidal Anti-Inflammatory Drug); - Home Meds: 1. docusate 100mg twice a day 2. Effexor 150mg Oral daily 3. hydroxyzine HCl 25 mg Oral tab 1 tab daily 4. tramadol 50 mg Oral tab 1 tab every 4-6 hours as needed, at night 5. trazodone 100mg Oral once daily 6. Zyrtec 10 mg Oral tab 1 tab once daily - PMHx: Anxiety; Asthma; Chronic Back pain; Depression; Hypertension; insomnia; - PSHx: Tonsillectomy; Cholecystectomy; Hysterectomy; - Social history: Smoking status: Patient states former smoker of tobacco. No barriers to communication noted, The patient speaks fluent Estonian, Speaks appropriately for age. - Family history: Not pertinent. - : The pt / caregiver states he / she is not on anticoagulants. Home medication list is obtained from the patient. - Exposure Risk Screening:: None identified. EXTRACTIONS TECHNOLOGIST: 10/22 23:18 LMP N/A - Hysterectomy nn1 Vital Signs: 23:11 BP 158 / 96; Pulse 96; Resp 18; Temp 99.5(O); Pulse Ox 96% on R/A; Weight 95.25 kg / sew 209.99 lbs; Height 5 ft. 7 in. (170.18 cm); Pain 9/10; 10/23 02:04 BP 148 / 89; Pulse 85; Resp 18; Temp 97.9(O); Pulse Ox 99% ; Pain 0/10; slm 10/22 23:11 Body Mass Index 32.89 (95.25 kg, 170.18 cm) sew MDM: 00:03 -Blood Culture (Adults Only), peripheral from different site, or from device/port/PICC ck7 etc. if present ordered. 00:03 IV Saline Lock ordered. ck7 00:03 Solu-MEDROL 125 mg IVP once ordered. ck7 00:03 Albuterol-Ipratropium 3 ml Inhalation once ordered. ck7 00:03 Call Respiratory ordered. ck7 00:04 CBC with Diff Ordered. EDMS 00:04 MED Profile Ordered. EDMS 00:04 -Blood Culture Ordered. EDMS 00:05 Chest, 2 View (pa\E\lat) Ordered. EDMS 00:06 Call Respiratory complete. nn1 00:12 -Blood Culture (Adults Only), peripheral from different site, or from device/port/PICC ajs etc. if present complete. 00:28 Financial registration complete. pm4 00:47 [facility] Payment Agreement was scanned into [employer] and attached to record. pm4 00:49 CBC with Diff Reviewed. ck7 00:49 MED Profile Reviewed. ck7 01:14 BLOOD CULTURES Ordered. EDMS Administered Medications: 00:18 Drug: Solu-MEDROL 125 mg [Solu-Medrol 500 mg intravenous solution (125 mg)] Route: IVP; ld5 Site: left antecubital; 00:22 Drug: Albuterol-Ipratropium 3 ml [ipratropium-albuterol 0.5 mg-3 mg(2.5 mg base)/3 mL jh6 nebulization soln (3 mL)] Route: Inhalation; Signatures: Dispatcher [employer] EDMS Dinora Bernstein Christopher, KENDRA-C RPA-Cck7 Patience Lim LPN LPN Niecy CardenasRN RN nn1 Adam Goodwin, Reg Reg pm4 Sue Castro RN ld5 Silverio Reardon jh6 The chart was reviewed and I authenticate all verbal orders and agree with the evaluation and treatment provided.Corrections: (The following items were deleted from the chart) 00:14 00:14 BLOOD CULTURES ordered. EDMS EDMS 00:14 00:14 BLOOD CULTURES ordered. EDMS EDMS Attachments: 00:47 [place] [place] pm4 MTDD
--- NOTE | 2016-10-23 02:06 | EDDOCDS ---
Nurse's Notes [facility] Name: Oxana Vazquez Age: 55 yrs Sex: Female : 1960 Arrival Date: 10/22/2016 Time: 23:10 Bed I3 / M3 Private MD: Federico White R. Diagnosis: Asthma;Acute bronchitis Presentation: 10/22 23:13 Presenting complaint: Patient states: insurance would not cover Advair inhaler, states nn1 she has been using albuterol inhaler every 2 hours. Feels like lungs are closing up. Reports shortness of breath and productive cough. Reports symptoms x 2 weeks. Adult Sepsis Screening: The patient does not have new or worsening altered mentation. Patient's respiratory rate is less than 22. Systolic blood pressure is greater than 100. Patient has a qSOFA score of 0- Negative Sepsis Screen. Suicide/Homicide risk assessment- the patient denies having any suicidal and/or homicidal ideations and does not present with any other emotional, behavioral or mental health complaints. Status: Patient is not a policy service coordinator or dependent. Transition of care: patient was not received from another setting of care. 23:13 Acuity: ANABEL Level 3 nn1 23:13 Method Of Arrival: Walkin/Carried/Asstd nn1 Triage Assessment: 23:17 General: Appears uncomfortable, Behavior is appropriate for age, cooperative. Pain: nn1 Location: chest Pain currently is 9 out of 10 on a pain scale. Quality of pain is described as pressure, Aggravated by deep breathing. HIV screening NA for this visit Offered previously. Neurological: No deficits noted. Respiratory: Onset: The symptoms/episode began/occurred 2 weeks ago , Airway is patent Respiratory effort is even, Respiratory pattern is regular, symmetrical, Reports shortness of breath at rest on exertion cough that is productive, green/brown mucus production. Derm: Skin is pink, warm & dry. 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 docusate 100mg twice a day 2. Effexor 150mg Oral daily 3. hydroxyzine HCl 25 mg Oral tab 1 tab daily 4. tramadol 50 mg Oral tab 1 tab every 4-6 hours as needed, at night 5. trazodone 100mg Oral once daily 6. Zyrtec 10 mg Oral tab 1 tab once daily - PMHx: Anxiety; Asthma; Chronic Back pain; Depression; Hypertension; insomnia; - PSHx: Tonsillectomy; Cholecystectomy; Hysterectomy; - Social history: Smoking status: Patient states former smoker of tobacco. No barriers to communication noted, The patient speaks fluent Yi, Speaks appropriately for age. - Family history: Not pertinent. - : The pt / caregiver states he / she is not on anticoagulants. Home medication list is obtained from the patient. - Exposure Risk Screening:: None identified. Screenin/11 02:03 Screening information is obtained from the patient. Fall risk: No risks identified. slm Assistance ADL's: requires no assistance with activities of daily living. Abuse/DV Screen: The patient / caregiver reports he/she is: not in a situation that causes fear, pain or injury. Nutritional screening: No deficits noted. Advance Directives: Currently, there is no health care proxy. There is no active DNR order. There is no living will. There is no Power of Physiological Chemist. home support is adequate. Assessment: 01:00 General: Appears in no apparent distress, comfortable, well nourished, well groomed, slm Behavior is appropriate for age, cooperative. Pain: Denies pain. Neurological: Level of Consciousness is awake, alert, Oriented to person, place, time. Cardiovascular: Rhythm is regular. Respiratory: Airway is patent Respiratory effort is even, unlabored, Respiratory pattern is regular, symmetrical, Breath sounds are diminished Breath sounds with wheezes inspiratory expiratory bilaterally. Derm: Skin is intact, Skin is dry, Skin is pink, warm & dry. Skin temperature is warm. Vital Signs: 10/22 23:11 BP 158 / 96; Pulse 96; Resp 18; Temp 99.5(O); Pulse Ox 96% on R/A; Weight 95.25 kg; sew Height 5 ft. 7 in. (170.18 cm); Pain 9/10; 10/23 02:04 BP 148 / 89; Pulse 85; Resp 18; Temp 97.9(O); Pulse Ox 99% ; Pain 0/10; slm 10/22 23:11 Body Mass Index 32.89 (95.25 kg, 170.18 cm) sew Vitals: 10/22 23:11 Log In Time: October 22, 2016 at 23:05. sew ED Course: 23:11 Patient visited by Anaid Christie. sew 23:11 Federico White is Private Physician. sew 23:11 Patient moved to Waiting sew 23:12 Patient visited by Anaid Christie. sew 23:12 Patient moved to Pre RCE sew 23:15 Triage Initiated nn1 23:45 Patient moved to Triage 2 mcp 23:59 Jr [facility] ck7 23:59 Varun Colby DO is Attending Physician. ck7 02 00:00 Patient visited by Jr Joaquin RPA-C. ck7 00:04 Patient moved to I3 / M3 mcp 00:18 -Blood Culture Sent. ld5 00:18 MED Profile Sent. ld5 00:19 Patient visited by Sue Castro RN. ld5 00:19 CBC with Diff Sent. ld5 00:19 Inserted saline lock: 20 gauge in left antecubital area and blood collected. The ld5 patient tolerated the procedure well. Labs drawn. (by ED staff). Sent per order to lab. 00:47 [facility] Payment Agreement was scanned into [employer] and attached to record. pm4 00:55 Patient visited by Juanita Cordova RN. kas2 01:37 Patient visited by Juanita Cordova RN. kas2 01:58 Federico White is Referral Physician. ck7 02:03 Patient visited by Patience Lim LPN. slm 02:04 Discontinued IV bleeding controlled, pressure dressing applied, No redness/swelling at slm site. No procedures done that require assistance. 02:05 The patient / caregiver is instructed regarding the plan of care and ED course. slm Administered Medications: 00:18 Drug: Solu-MEDROL 125 mg [Solu-Medrol 500 mg intravenous solution (125 mg)] Route: IVP; ld5 Site: left antecubital; 00:22 Drug: Albuterol-Ipratropium 3 ml [ipratropium-albuterol 0.5 mg-3 mg(2.5 mg base)/3 mL jh6 nebulization soln (3 mL)] Route: Inhalation; RT: 00:22 Initial Med Neb Given as ordered Patient was instructed and evaluated on procedure jh6 Patient tolerated procedure well without adverse effect. Respiratory: Airway is patent Respiratory effort is even, labored, Respiratory pattern is regular symmetrical, Breath sounds are clear in left posterior upper lobe, right posterior upper lobe, left posterior lower lobe, right posterior middle lobe and right posterior lower lobe Breath sounds are diminished in left posterior upper lobe, right posterior upper lobe, left posterior lower lobe, right posterior middle lobe and right posterior lower lobe. 00:31 Respiratory: Airway is patent Respiratory effort is even, unlabored, Respiratory jh6 pattern is regular Breath sounds are clear in left posterior upper lobe, right posterior upper lobe, left posterior lower lobe, right posterior middle lobe and right posterior lower lobe. Order Results: Lab Order: CBC with Diff; SPEC'M 10/23/16 00:13 Test: WHITE BLOOD COUNT; Value: 10.2; Range: 4.0-10.0; Abnormal: Above high normal; Units: K/mm3; Status: F Test: RED BLOOD COUNT; Value: 4.89; Range: 4.00-5.40; Units: M/mm3; Status: F Test: HEMOGLOBIN; Value: 15.0; Range: 12.0-16.0; Units: g/dl; Status: F Test: HEMATOCRIT; Value: 44.4; Range: 36.0-47.0; Units: %; Status: F Test: MEAN CORPUSCULAR VOLUME; Value: 90.7; Range: 80.0-96.0; Units: fl; Status: F Test: MEAN CORPUSCULAR HEMOGLOBIN; Value: 30.6; Range: 27.0-33.0; Units: pg; Status: F Test: MEAN CORPUSCULAR HGB CONC; Value: 33.7; Range: 32.0-36.5; Units: g/dl; Status: F Test: RED CELL DISTRIBUTION WIDTH; Value: 12.3; Range: 11.5-14.5; Units: %; Status: F Test: PLATELET COUNT, AUTOMATED; Value: 474; Range: 150-450; Abnormal: Above high normal; Units: k/mm3; Status: F Test: NEUTROPHILS %; Value: 54.8; Range: 36.0-66.0; Units: %; Status: F Test: LYMPH %; Value: 31.5; Range: 24.0-44.0; Units: %; Status: F Test: MONO %; Value: 5.9; Range: 0.0-5.0; Abnormal: Above high normal; Units: %; Status: F Test: EOS %; Value: 5.2; Range: 0.0-3.0; Abnormal: Above high normal; Units: %; Status: F Test: BASO %; Value: 0.9; Range: 0.0-1.0; Units: %; Status: F Test: LARGE UNSTAINED CELL %; Value: 1.8; Range: 0.0-4.0; Units: %; Status: F Test: NEUTROPHILS #; Value: 5.6; Range: 1.8-7.7; Units: K/mm3; Status: F Test: LYMPH #; Value: 3.2; Range: 1.5-4.5; Units: K/mm3; Status: F Test: MONO #; Value: 0.6; Range: 0.0-0.8; Units: K/mm3; Status: F Test: EOS #; Value: 0.5; Range: 0.0-0.50; Units: K/mm3; Status: F Test: BASO #; Value: 0.1; Range: 0.0-0.2; Units: K/mm3; Status: F Test: LARGE UNSTAINED CELL #; Value: 0.2; Range: 0.0-0.4; Units: K/mm3; Status: F Lab Order: MED Profile; SPEC'M 10/23/16 00:13 Test: GLUCOSE, FASTING; Value: 146; Range: 70-105; Abnormal: Above high normal; Units: MG/DL; Status: F Test: BLOOD UREA NITROGEN; Value: 13; Range: 7-18; Units: MG/DL; Status: F Test: CREATININE FOR GFR; Value: 0.83; Range: 0.55-1.02; Units: MG/DL; Status: F Test: GLOMERULAR FILTRATION RATE; Value: > 60.0; Range: >51; Status: F Test: SODIUM LEVEL; Value: 142; Range: 136-145; Units: MEQ/L; Status: F Test: POTASSIUM SERUM; Value: 3.9; Range: 3.5-5.1; Units: MEQ/L; Status: F Test: CHLORIDE LEVEL; Value: 104; Range: 98-107; Units: MEQ/L; Status: F Test: CARBON DIOXIDE LEVEL; Value: 31; Range: 21-32; Units: MEQ/L; Status: F Test: ANION GAP; Value: 7; Range: 8-16; Abnormal: Below low normal; Units: MEQ/L; Status: F Test: CALCIUM LEVEL; Value: 9.3; Range: 8.5-10.1; Units: MG/DL; Status: F Test Note: ; Units are mL/min/1.73 m2 Chronic Kidney Disease Staging per NKF: Stage I & II GFR >=60 Normal to Mildly Decreased Stage III GFR 30-59 Moderately Decreased Stage IV GFR 15-29 Severely Decreased Stage V GFR <15 Very Little GFR Left ESRD GFR <15 on CONSUMER CREDIT COUNSELOR Outcome: 01:58 Discharge ordered by Provider. ck7 02:04 Discharge Assessment: patient administered narcotics - no. The following High Risk [facility] Discharge criteria are identified: None. Discharged to home ambulatory. Condition: good Condition: stable Condition: improved. No special radiology studies were completed. Property :Personal belongings accompany Pt. 02:05 Patient left the ED. slm Signatures: Elyssa Muniz, RN RN Sue GannRN RN [id number] Silverio Reardon6 Jr Joaquin, RPA-C RPA-Cck7 Anaid Christie Stephanie,VIRGILIO POOLE Niecy Allen,RN RN nn1 Juanita CordovaRN RN kas2 Adam Goodwin, Reg Reg pm4 MTDD
--- NOTE | 2016-10-23 02:22 | EDDOCDS ---
Physician Documentation [facility] Name: Oxana Vazquez Age: 55 yrs Sex: Female : 1960 Arrival Date: 10/22/2016 Time: 23:10 Bed I3 / M3 Private MD: Federico White R. Disposition: 10/23/16 01:58 Discharged to Home/Self Care. Impression: Asthma, Acute bronchitis. - Condition is Stable. - Discharge Instructions: Acute Bronchitis, Asthma, Adult. - Prescriptions for Prednisone 20 mg Oral Tablet - take 2 tablet by ORAL route once daily for 5 days; 10 tablet. Zithromax 250 mg Oral Tablet - take 1 tablet by ORAL route once daily start tomorrow; 4 tablet. Albuterol Sulfate 90 mcg/actuation Inhalation HFA Aerosol Inhaler - inhale 2 puff by INHALATION route every 4 hours As needed; 1 Inhaler. - Medication Reconciliation, Local Pharmacy Hours form. - Follow up: Federico White; When: 2 - 3 days; Reason: Recheck today's complaints, Continuance of care. - Problem is new. - Symptoms have improved. Historical: - Allergies: NSAIDS (Non-Steroidal Anti-Inflammatory Drug); - Home Meds: 1. docusate 100mg twice a day 2. Effexor 150mg Oral daily 3. hydroxyzine HCl 25 mg Oral tab 1 tab daily 4. tramadol 50 mg Oral tab 1 tab every 4-6 hours as needed, at night 5. trazodone 100mg Oral once daily 6. Zyrtec 10 mg Oral tab 1 tab once daily - PMHx: Anxiety; Asthma; Chronic Back pain; Depression; Hypertension; insomnia; - PSHx: Tonsillectomy; Cholecystectomy; Hysterectomy; - Social history: Smoking status: Patient states former smoker of tobacco. No barriers to communication noted, The patient speaks fluent Polish, Speaks appropriately for age. - Family history: Not pertinent. - : The pt / caregiver states he / she is not on anticoagulants. Home medication list is obtained from the patient. - Exposure Risk Screening:: None identified. 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 7 in. (170.18 cm); Pain 9/10; 10/23 02:04 BP 148 / 89; Pulse 85; Resp 18; Temp 97.9(O); Pulse Ox 99% ; Pain 0/10; slm 10/22 23:11 Body Mass Index 32.89 (95.25 kg, 170.18 cm) sew MDM: 00:03 -Blood Culture (Adults Only), peripheral from different site, or from device/port/PICC ck7 etc. if present ordered. 00:03 IV Saline Lock ordered. ck7 00:03 Solu-MEDROL 125 mg IVP once ordered. ck7 00:03 Albuterol-Ipratropium 3 ml Inhalation once ordered. ck7 00:03 Call Respiratory ordered. ck7 00:04 CBC with Diff Ordered. EDMS 00:04 MED Profile Ordered. EDMS 00:04 -Blood Culture Ordered. EDMS 00:05 Chest, 2 View (pa\E\lat) Ordered. EDMS 00:06 Call Respiratory complete. nn1 00:12 -Blood Culture (Adults Only), peripheral from different site, or from device/port/PICC ajs etc. if present complete. 00:28 Financial registration complete. pm4 00:47 [facility] Payment Agreement was scanned into [employer] and attached to record. pm4 00:49 CBC with Diff Reviewed. ck7 00:49 MED Profile Reviewed. ck7 01:14 BLOOD CULTURES Ordered. EDMS Administered Medications: 00:18 Drug: Solu-MEDROL 125 mg [Solu-Medrol 500 mg intravenous solution (125 mg)] Route: IVP; ld5 Site: left antecubital; 00:22 Drug: Albuterol-Ipratropium 3 ml [ipratropium-albuterol 0.5 mg-3 mg(2.5 mg base)/3 mL jh6 nebulization soln (3 mL)] Route: Inhalation; Signatures: Dispatcher [employer] EDMS Dinora Bernstein Christopher, KENDRA-C RPA-Cck7 Patience Lim LPN LPN Niecy CardenasRN RN nn1 Adam Goodwin, Reg Reg pm4 Sue Castro RN ld5 Silverio Reardon jh6 The chart was reviewed and I authenticate all verbal orders and agree with the evaluation and treatment provided.Corrections: (The following items were deleted from the chart) 00:14 00:14 BLOOD CULTURES ordered. EDMS EDMS 00:14 00:14 BLOOD CULTURES ordered. EDMS EDMS Attachments: 00:47 [facility] pm4 MTDD
--- NOTE | 2016-10-23 02:22 | EDDOCDS ---
Nurse's Notes [facility] Name: Oxana Vazquez Age: 55 yrs Sex: Female : 1960 Arrival Date: 10/22/2016 Time: 23:10 Bed I3 / M3 Private MD: Federico White R. Diagnosis: Asthma;Acute bronchitis Presentation: 10/22 23:13 Presenting complaint: Patient states: insurance would not cover Advair inhaler, states nn1 she has been using albuterol inhaler every 2 hours. Feels like lungs are closing up. Reports shortness of breath and productive cough. Reports symptoms x 2 weeks. Adult Sepsis Screening: The patient does not have new or worsening altered mentation. Patient's respiratory rate is less than 22. Systolic blood pressure is greater than 100. Patient has a qSOFA score of 0- Negative Sepsis Screen. Suicide/Homicide risk assessment- the patient denies having any suicidal and/or homicidal ideations and does not present with any other emotional, behavioral or mental health complaints. Status: Patient is not a service electrician or dependent. Transition of care: patient was not received from another setting of care. 23:13 Acuity: ANABEL Level 3 nn1 23:13 Method Of Arrival: Walkin/Carried/Asstd nn1 Triage Assessment: 23:17 General: Appears uncomfortable, Behavior is appropriate for age, cooperative. Pain: nn1 Location: chest Pain currently is 9 out of 10 on a pain scale. Quality of pain is described as pressure, Aggravated by deep breathing. HIV screening NA for this visit Offered previously. Neurological: No deficits noted. Respiratory: Onset: The symptoms/episode began/occurred 2 weeks ago , Airway is patent Respiratory effort is even, Respiratory pattern is regular, symmetrical, Reports shortness of breath at rest on exertion cough that is productive, green/brown mucus production. Derm: Skin is pink, warm & dry. 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 docusate 100mg twice a day 2. Effexor 150mg Oral daily 3. hydroxyzine HCl 25 mg Oral tab 1 tab daily 4. tramadol 50 mg Oral tab 1 tab every 4-6 hours as needed, at night 5. trazodone 100mg Oral once daily 6. Zyrtec 10 mg Oral tab 1 tab once daily - PMHx: Anxiety; Asthma; Chronic Back pain; Depression; Hypertension; insomnia; - PSHx: Tonsillectomy; Cholecystectomy; Hysterectomy; - Social history: Smoking status: Patient states former smoker of tobacco. No barriers to communication noted, The patient speaks fluent Estonian, Speaks appropriately for age. - Family history: Not pertinent. - : The pt / caregiver states he / she is not on anticoagulants. Home medication list is obtained from the patient. - Exposure Risk Screening:: None identified. Screenin/11 02:03 Screening information is obtained from the patient. Fall risk: No risks identified. slm Assistance ADL's: requires no assistance with activities of daily living. Abuse/DV Screen: The patient / caregiver reports he/she is: not in a situation that causes fear, pain or injury. Nutritional screening: No deficits noted. Advance Directives: Currently, there is no health care proxy. There is no active DNR order. There is no living will. There is no Power of Coin Collector. home support is adequate. Assessment: 01:00 General: Appears in no apparent distress, comfortable, well nourished, well groomed, slm Behavior is appropriate for age, cooperative. Pain: Denies pain. Neurological: Level of Consciousness is awake, alert, Oriented to person, place, time. Cardiovascular: Rhythm is regular. Respiratory: Airway is patent Respiratory effort is even, unlabored, Respiratory pattern is regular, symmetrical, Breath sounds are diminished Breath sounds with wheezes inspiratory expiratory bilaterally. Derm: Skin is intact, Skin is dry, Skin is pink, warm & dry. Skin temperature is warm. Vital Signs: 10/22 23:11 BP 158 / 96; Pulse 96; Resp 18; Temp 99.5(O); Pulse Ox 96% on R/A; Weight 95.25 kg; sew Height 5 ft. 7 in. (170.18 cm); Pain 9/10; 10/23 02:04 BP 148 / 89; Pulse 85; Resp 18; Temp 97.9(O); Pulse Ox 99% ; Pain 0/10; slm 10/22 23:11 Body Mass Index 32.89 (95.25 kg, 170.18 cm) sew Vitals: 10/22 23:11 Log In Time: October 22, 2016 at 23:05. sew ED Course: 23:11 Patient visited by Anaid Christie. sew 23:11 Federico White is Private Physician. sew 23:11 Patient moved to Waiting sew 23:12 Patient visited by Anaid Christie. sew 23:12 Patient moved to Pre RCE sew 23:15 Triage Initiated nn1 23:45 Patient moved to Triage 2 mcp 23:59 [facility] ck7 23:59 Varun Colby DO is Attending Physician. ck7 02 00:00 Patient visited by Jr Joaquin RPA-C. ck7 00:04 Patient moved to I3 / M3 mcp 00:18 -Blood Culture Sent. ld5 00:18 MED Profile Sent. ld5 00:19 Patient visited by Sue Castro RN. ld5 00:19 CBC with Diff Sent. ld5 00:19 Inserted saline lock: 20 gauge in left antecubital area and blood collected. The ld5 patient tolerated the procedure well. Labs drawn. (by ED staff). Sent per order to lab. 00:47 [facility] Payment Agreement was scanned into [employer] and attached to record. pm4 00:55 Patient visited by Juanita Cordova RN. kas2 01:37 Patient visited by Juanita Cordova RN. kas2 01:58 Federico White is Referral Physician. ck7 02:03 Patient visited by Patience Lim LPN. slm 02:04 Discontinued IV bleeding controlled, pressure dressing applied, No redness/swelling at slm site. No procedures done that require assistance. 02:05 The patient / caregiver is instructed regarding the plan of care and ED course. slm Administered Medications: 00:18 Drug: Solu-MEDROL 125 mg [Solu-Medrol 500 mg intravenous solution (125 mg)] Route: IVP; ld5 Site: left antecubital; 00:22 Drug: Albuterol-Ipratropium 3 ml [ipratropium-albuterol 0.5 mg-3 mg(2.5 mg base)/3 mL jh6 nebulization soln (3 mL)] Route: Inhalation; RT: 00:22 Initial Med Neb Given as ordered Patient was instructed and evaluated on procedure jh6 Patient tolerated procedure well without adverse effect. Respiratory: Airway is patent Respiratory effort is even, labored, Respiratory pattern is regular symmetrical, Breath sounds are clear in left posterior upper lobe, right posterior upper lobe, left posterior lower lobe, right posterior middle lobe and right posterior lower lobe Breath sounds are diminished in left posterior upper lobe, right posterior upper lobe, left posterior lower lobe, right posterior middle lobe and right posterior lower lobe. 00:31 Respiratory: Airway is patent Respiratory effort is even, unlabored, Respiratory jh6 pattern is regular Breath sounds are clear in left posterior upper lobe, right posterior upper lobe, left posterior lower lobe, right posterior middle lobe and right posterior lower lobe. Order Results: Lab Order: CBC with Diff; SPEC'M 10/23/16 00:13 Test: WHITE BLOOD COUNT; Value: 10.2; Range: 4.0-10.0; Abnormal: Above high normal; Units: K/mm3; Status: F Test: RED BLOOD COUNT; Value: 4.89; Range: 4.00-5.40; Units: M/mm3; Status: F Test: HEMOGLOBIN; Value: 15.0; Range: 12.0-16.0; Units: g/dl; Status: F Test: HEMATOCRIT; Value: 44.4; Range: 36.0-47.0; Units: %; Status: F Test: MEAN CORPUSCULAR VOLUME; Value: 90.7; Range: 80.0-96.0; Units: fl; Status: F Test: MEAN CORPUSCULAR HEMOGLOBIN; Value: 30.6; Range: 27.0-33.0; Units: pg; Status: F Test: MEAN CORPUSCULAR HGB CONC; Value: 33.7; Range: 32.0-36.5; Units: g/dl; Status: F Test: RED CELL DISTRIBUTION WIDTH; Value: 12.3; Range: 11.5-14.5; Units: %; Status: F Test: PLATELET COUNT, AUTOMATED; Value: 474; Range: 150-450; Abnormal: Above high normal; Units: k/mm3; Status: F Test: NEUTROPHILS %; Value: 54.8; Range: 36.0-66.0; Units: %; Status: F Test: LYMPH %; Value: 31.5; Range: 24.0-44.0; Units: %; Status: F Test: MONO %; Value: 5.9; Range: 0.0-5.0; Abnormal: Above high normal; Units: %; Status: F Test: EOS %; Value: 5.2; Range: 0.0-3.0; Abnormal: Above high normal; Units: %; Status: F Test: BASO %; Value: 0.9; Range: 0.0-1.0; Units: %; Status: F Test: LARGE UNSTAINED CELL %; Value: 1.8; Range: 0.0-4.0; Units: %; Status: F Test: NEUTROPHILS #; Value: 5.6; Range: 1.8-7.7; Units: K/mm3; Status: F Test: LYMPH #; Value: 3.2; Range: 1.5-4.5; Units: K/mm3; Status: F Test: MONO #; Value: 0.6; Range: 0.0-0.8; Units: K/mm3; Status: F Test: EOS #; Value: 0.5; Range: 0.0-0.50; Units: K/mm3; Status: F Test: BASO #; Value: 0.1; Range: 0.0-0.2; Units: K/mm3; Status: F Test: LARGE UNSTAINED CELL #; Value: 0.2; Range: 0.0-0.4; Units: K/mm3; Status: F Lab Order: MED Profile; SPEC'M 10/23/16 00:13 Test: GLUCOSE, FASTING; Value: 146; Range: 70-105; Abnormal: Above high normal; Units: MG/DL; Status: F Test: BLOOD UREA NITROGEN; Value: 13; Range: 7-18; Units: MG/DL; Status: F Test: CREATININE FOR GFR; Value: 0.83; Range: 0.55-1.02; Units: MG/DL; Status: F Test: GLOMERULAR FILTRATION RATE; Value: > 60.0; Range: >51; Status: F Test: SODIUM LEVEL; Value: 142; Range: 136-145; Units: MEQ/L; Status: F Test: POTASSIUM SERUM; Value: 3.9; Range: 3.5-5.1; Units: MEQ/L; Status: F Test: CHLORIDE LEVEL; Value: 104; Range: 98-107; Units: MEQ/L; Status: F Test: CARBON DIOXIDE LEVEL; Value: 31; Range: 21-32; Units: MEQ/L; Status: F Test: ANION GAP; Value: 7; Range: 8-16; Abnormal: Below low normal; Units: MEQ/L; Status: F Test: CALCIUM LEVEL; Value: 9.3; Range: 8.5-10.1; Units: MG/DL; Status: F Test Note: ; Units are mL/min/1.73 m2 Chronic Kidney Disease Staging per NKF: Stage I & II GFR >=60 Normal to Mildly Decreased Stage III GFR 30-59 Moderately Decreased Stage IV GFR 15-29 Severely Decreased Stage V GFR <15 Very Little GFR Left ESRD GFR <15 on CRYPTOGRAPHIC MACHINE OPERATOR Outcome: 01:58 Discharge ordered by Provider. ck7 02:04 Discharge Assessment: patient administered narcotics - no. The following High Risk [facility] Discharge criteria are identified: None. Discharged to home ambulatory. Condition: good Condition: stable Condition: improved. No special radiology studies were completed. Property :Personal belongings accompany Pt. 02:05 Patient left the ED. slm 02:21 Patient left the ED. ck7 Signatures: Elyssa Muniz RN RN Sue GannRN RN Silverio Jaquez Christopher, KENDRA-C RPA-Cck7 Anaid Christie Stephanie, LPN LPN slm Nunez, NikkoleRN RN nn1 Juanita Cordova RN RN kas2 Adam Goodwin, Reg Reg pm4 MTDD
--- NOTE | 2016-10-23 02:25 | EDDOCDS ---
Physician Documentation [facility] Name: Oxana Vazquez Age: 55 yrs Sex: Female : 1960 Arrival Date: 10/22/2016 Time: 23:10 Bed I3 / M3 Private MD: Federico White R. Disposition: 10/23/16 01:58 Discharged to Home/Self Care. Impression: Asthma, Acute bronchitis. - Condition is Stable. - Discharge Instructions: Acute Bronchitis, Asthma, Adult. - Prescriptions for Prednisone 20 mg Oral Tablet - take 2 tablet by ORAL route once daily for 5 days; 10 tablet. Zithromax 250 mg Oral Tablet - take 1 tablet by ORAL route once daily start tomorrow; 4 tablet. Albuterol Sulfate 90 mcg/actuation Inhalation HFA Aerosol Inhaler - inhale 2 puff by INHALATION route every 4 hours As needed; 1 Inhaler. - Medication Reconciliation, Local Pharmacy Hours form. - Follow up: Federico White; When: 2 - 3 days; Reason: Recheck today's complaints, Continuance of care. - Problem is new. - Symptoms have improved. Historical: - Allergies: NSAIDS (Non-Steroidal Anti-Inflammatory Drug); - Home Meds: 1. docusate 100mg twice a day 2. Effexor 150mg Oral daily 3. hydroxyzine HCl 25 mg Oral tab 1 tab daily 4. tramadol 50 mg Oral tab 1 tab every 4-6 hours as needed, at night 5. trazodone 100mg Oral once daily 6. Zyrtec 10 mg Oral tab 1 tab once daily - PMHx: Anxiety; Asthma; Chronic Back pain; Depression; Hypertension; insomnia; - PSHx: Tonsillectomy; Cholecystectomy; Hysterectomy; - Social history: Smoking status: Patient states former smoker of tobacco. No barriers to communication noted, The patient speaks fluent Bulgarian, Speaks appropriately for age. - Family history: Not pertinent. - : The pt / caregiver states he / she is not on anticoagulants. Home medication list is obtained from the patient. - Exposure Risk Screening:: None identified. 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 7 in. (170.18 cm); Pain 9/10; 10/23 02:04 BP 148 / 89; Pulse 85; Resp 18; Temp 97.9(O); Pulse Ox 99% ; Pain 0/10; slm 10/22 23:11 Body Mass Index 32.89 (95.25 kg, 170.18 cm) sew MDM: 00:03 -Blood Culture (Adults Only), peripheral from different site, or from device/port/PICC ck7 etc. if present ordered. 00:03 IV Saline Lock ordered. ck7 00:03 Solu-MEDROL 125 mg IVP once ordered. ck7 00:03 Albuterol-Ipratropium 3 ml Inhalation once ordered. ck7 00:03 Call Respiratory ordered. ck7 00:04 CBC with Diff Ordered. EDMS 00:04 MED Profile Ordered. EDMS 00:04 -Blood Culture Ordered. EDMS 00:05 Chest, 2 View (pa\E\lat) Ordered. EDMS 00:06 Call Respiratory complete. nn1 00:12 -Blood Culture (Adults Only), peripheral from different site, or from device/port/PICC ajs etc. if present complete. 00:28 Financial registration complete. pm4 00:47 [facility] Payment Agreement was scanned into [employer] and attached to record. pm4 00:49 CBC with Diff Reviewed. ck7 00:49 MED Profile Reviewed. ck7 01:14 BLOOD CULTURES Ordered. EDMS Administered Medications: 00:18 Drug: Solu-MEDROL 125 mg [Solu-Medrol 500 mg intravenous solution (125 mg)] Route: IVP; ld5 Site: left antecubital; 00:22 Drug: Albuterol-Ipratropium 3 ml [ipratropium-albuterol 0.5 mg-3 mg(2.5 mg base)/3 mL jh6 nebulization soln (3 mL)] Route: Inhalation; Signatures: Dispatcher [employer] EDMS Varun Colby DO DO mm11 Dinora Bernstein Christopher, KENDRA-C RPA-Cck7 Patience Lim LPN NUCLEAR CONTROL OPERATOR Niecy Allen,RN RN nn1 Adam Goodwin, Reg Reg pm4 Sue Castro RN ld5 Silverio Reardon jh6 The chart was reviewed and I authenticate all verbal orders and agree with the evaluation and treatment provided.Corrections: (The following items were deleted from the chart) 00:14 00:14 BLOOD CULTURES ordered. EDMS EDMS 00:14 00:14 BLOOD CULTURES ordered. EDMS EDMS Attachments: 00:47 [facility] Payment Agreement pm4 MTDD
--- NOTE | 2016-10-23 02:25 | EDDOCDS ---
Nurse's Notes [facility] Name: Oxana Vazquez Age: 55 yrs Sex: Female : 1960 Arrival Date: 10/22/2016 Time: 23:10 Bed I3 / M3 Private MD: Federico White R. Diagnosis: Asthma;Acute bronchitis Presentation: 10/22 23:13 Presenting complaint: Patient states: insurance would not cover Advair inhaler, states nn1 she has been using albuterol inhaler every 2 hours. Feels like lungs are closing up. Reports shortness of breath and productive cough. Reports symptoms x 2 weeks. Adult Sepsis Screening: The patient does not have new or worsening altered mentation. Patient's respiratory rate is less than 22. Systolic blood pressure is greater than 100. Patient has a qSOFA score of 0- Negative Sepsis Screen. Suicide/Homicide risk assessment- the patient denies having any suicidal and/or homicidal ideations and does not present with any other emotional, behavioral or mental health complaints. Status: Patient is not a front services agent or dependent. Transition of care: patient was not received from another setting of care. 23:13 Acuity: ANABEL Level 3 nn1 23:13 Method Of Arrival: Walkin/Carried/Asstd nn1 Triage Assessment: 23:17 General: Appears uncomfortable, Behavior is appropriate for age, cooperative. Pain: nn1 Location: chest Pain currently is 9 out of 10 on a pain scale. Quality of pain is described as pressure, Aggravated by deep breathing. HIV screening NA for this visit Offered previously. Neurological: No deficits noted. Respiratory: Onset: The symptoms/episode began/occurred 2 weeks ago , Airway is patent Respiratory effort is even, Respiratory pattern is regular, symmetrical, Reports shortness of breath at rest on exertion cough that is productive, green/brown mucus production. Derm: Skin is pink, warm & dry. 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 docusate 100mg twice a day 2. Effexor 150mg Oral daily 3. hydroxyzine HCl 25 mg Oral tab 1 tab daily 4. tramadol 50 mg Oral tab 1 tab every 4-6 hours as needed, at night 5. trazodone 100mg Oral once daily 6. Zyrtec 10 mg Oral tab 1 tab once daily - PMHx: Anxiety; Asthma; Chronic Back pain; Depression; Hypertension; insomnia; - PSHx: Tonsillectomy; Cholecystectomy; Hysterectomy; - Social history: Smoking status: Patient states former smoker of tobacco. No barriers to communication noted, The patient speaks fluent Greek, Speaks appropriately for age. - Family history: Not pertinent. - : The pt / caregiver states he / she is not on anticoagulants. Home medication list is obtained from the patient. - Exposure Risk Screening:: None identified. Screenin/11 02:03 Screening information is obtained from the patient. Fall risk: No risks identified. slm Assistance ADL's: requires no assistance with activities of daily living. Abuse/DV Screen: The patient / caregiver reports he/she is: not in a situation that causes fear, pain or injury. Nutritional screening: No deficits noted. Advance Directives: Currently, there is no health care proxy. There is no active DNR order. There is no living will. There is no Power of Strapping Machine Tender. home support is adequate. Assessment: 01:00 General: Appears in no apparent distress, comfortable, well nourished, well groomed, slm Behavior is appropriate for age, cooperative. Pain: Denies pain. Neurological: Level of Consciousness is awake, alert, Oriented to person, place, time. Cardiovascular: Rhythm is regular. Respiratory: Airway is patent Respiratory effort is even, unlabored, Respiratory pattern is regular, symmetrical, Breath sounds are diminished Breath sounds with wheezes inspiratory expiratory bilaterally. Derm: Skin is intact, Skin is dry, Skin is pink, warm & dry. Skin temperature is warm. Vital Signs: 10/22 23:11 BP 158 / 96; Pulse 96; Resp 18; Temp 99.5(O); Pulse Ox 96% on R/A; Weight 95.25 kg; sew Height 5 ft. 7 in. (170.18 cm); Pain 9/10; 10/23 02:04 BP 148 / 89; Pulse 85; Resp 18; Temp 97.9(O); Pulse Ox 99% ; Pain 0/10; slm 10/22 23:11 Body Mass Index 32.89 (95.25 kg, 170.18 cm) sew Vitals: 10/22 23:11 Log In Time: October 22, 2016 at 23:05. sew ED Course: 23:11 Patient visited by Anaid Christie. sew 23:11 Federico White is Private Physician. sew 23:11 Patient moved to Waiting sew 23:12 Patient visited by Anaid Christie. sew 23:12 Patient moved to Pre RCE sew 23:15 Triage Initiated nn1 23:45 Patient moved to Triage 2 mcp 23:59 [facility] ck7 23:59 Varun Colby DO is Attending Physician. ck7 02 00:00 Patient visited by Jr Joaquin RPA-C. ck7 00:04 Patient moved to I3 / M3 mcp 00:18 -Blood Culture Sent. ld5 00:18 MED Profile Sent. ld5 00:19 Patient visited by Sue Castro RN. ld5 00:19 CBC with Diff Sent. ld5 00:19 Inserted saline lock: 20 gauge in left antecubital area and blood collected. The ld5 patient tolerated the procedure well. Labs drawn. (by ED staff). Sent per order to lab. 00:47 PENDING SALE TO [facility] Payment Agreement was scanned into [employer] and attached to record. pm4 00:55 Patient visited by Juanita Cordova RN. kas2 01:37 Patient visited by Juanita Cordova RN. kas2 01:58 Federico White is Referral Physician. ck7 02:03 Patient visited by Patience Lim LPN. slm 02:04 Discontinued IV bleeding controlled, pressure dressing applied, No redness/swelling at slm site. No procedures done that require assistance. 02:05 The patient / caregiver is instructed regarding the plan of care and ED course. slm Administered Medications: 00:18 Drug: Solu-MEDROL 125 mg [Solu-Medrol 500 mg intravenous solution (125 mg)] Route: IVP; ld5 Site: left antecubital; 00:22 Drug: Albuterol-Ipratropium 3 ml [ipratropium-albuterol 0.5 mg-3 mg(2.5 mg base)/3 mL jh6 nebulization soln (3 mL)] Route: Inhalation; RT: 00:22 Initial Med Neb Given as ordered Patient was instructed and evaluated on procedure jh6 Patient tolerated procedure well without adverse effect. Respiratory: Airway is patent Respiratory effort is even, labored, Respiratory pattern is regular symmetrical, Breath sounds are clear in left posterior upper lobe, right posterior upper lobe, left posterior lower lobe, right posterior middle lobe and right posterior lower lobe Breath sounds are diminished in left posterior upper lobe, right posterior upper lobe, left posterior lower lobe, right posterior middle lobe and right posterior lower lobe. 00:31 Respiratory: Airway is patent Respiratory effort is even, unlabored, Respiratory jh6 pattern is regular Breath sounds are clear in left posterior upper lobe, right posterior upper lobe, left posterior lower lobe, right posterior middle lobe and right posterior lower lobe. Order Results: Lab Order: CBC with Diff; SPEC'M 10/23/16 00:13 Test: WHITE BLOOD COUNT; Value: 10.2; Range: 4.0-10.0; Abnormal: Above high normal; Units: K/mm3; Status: F Test: RED BLOOD COUNT; Value: 4.89; Range: 4.00-5.40; Units: M/mm3; Status: F Test: HEMOGLOBIN; Value: 15.0; Range: 12.0-16.0; Units: g/dl; Status: F Test: HEMATOCRIT; Value: 44.4; Range: 36.0-47.0; Units: %; Status: F Test: MEAN CORPUSCULAR VOLUME; Value: 90.7; Range: 80.0-96.0; Units: fl; Status: F Test: MEAN CORPUSCULAR HEMOGLOBIN; Value: 30.6; Range: 27.0-33.0; Units: pg; Status: F Test: MEAN CORPUSCULAR HGB CONC; Value: 33.7; Range: 32.0-36.5; Units: g/dl; Status: F Test: RED CELL DISTRIBUTION WIDTH; Value: 12.3; Range: 11.5-14.5; Units: %; Status: F Test: PLATELET COUNT, AUTOMATED; Value: 474; Range: 150-450; Abnormal: Above high normal; Units: k/mm3; Status: F Test: NEUTROPHILS %; Value: 54.8; Range: 36.0-66.0; Units: %; Status: F Test: LYMPH %; Value: 31.5; Range: 24.0-44.0; Units: %; Status: F Test: MONO %; Value: 5.9; Range: 0.0-5.0; Abnormal: Above high normal; Units: %; Status: F Test: EOS %; Value: 5.2; Range: 0.0-3.0; Abnormal: Above high normal; Units: %; Status: F Test: BASO %; Value: 0.9; Range: 0.0-1.0; Units: %; Status: F Test: LARGE UNSTAINED CELL %; Value: 1.8; Range: 0.0-4.0; Units: %; Status: F Test: NEUTROPHILS #; Value: 5.6; Range: 1.8-7.7; Units: K/mm3; Status: F Test: LYMPH #; Value: 3.2; Range: 1.5-4.5; Units: K/mm3; Status: F Test: MONO #; Value: 0.6; Range: 0.0-0.8; Units: K/mm3; Status: F Test: EOS #; Value: 0.5; Range: 0.0-0.50; Units: K/mm3; Status: F Test: BASO #; Value: 0.1; Range: 0.0-0.2; Units: K/mm3; Status: F Test: LARGE UNSTAINED CELL #; Value: 0.2; Range: 0.0-0.4; Units: K/mm3; Status: F Lab Order: MED Profile; SPEC'M 10/23/16 00:13 Test: GLUCOSE, FASTING; Value: 146; Range: 70-105; Abnormal: Above high normal; Units: MG/DL; Status: F Test: BLOOD UREA NITROGEN; Value: 13; Range: 7-18; Units: MG/DL; Status: F Test: CREATININE FOR GFR; Value: 0.83; Range: 0.55-1.02; Units: MG/DL; Status: F Test: GLOMERULAR FILTRATION RATE; Value: > 60.0; Range: >51; Status: F Test: SODIUM LEVEL; Value: 142; Range: 136-145; Units: MEQ/L; Status: F Test: POTASSIUM SERUM; Value: 3.9; Range: 3.5-5.1; Units: MEQ/L; Status: F Test: CHLORIDE LEVEL; Value: 104; Range: 98-107; Units: MEQ/L; Status: F Test: CARBON DIOXIDE LEVEL; Value: 31; Range: 21-32; Units: MEQ/L; Status: F Test: ANION GAP; Value: 7; Range: 8-16; Abnormal: Below low normal; Units: MEQ/L; Status: F Test: CALCIUM LEVEL; Value: 9.3; Range: 8.5-10.1; Units: MG/DL; Status: F Test Note: ; Units are mL/min/1.73 m2 Chronic Kidney Disease Staging per NKF: Stage I & II GFR >=60 Normal to Mildly Decreased Stage III GFR 30-59 Moderately Decreased Stage IV GFR 15-29 Severely Decreased Stage V GFR <15 Very Little GFR Left ESRD GFR <15 on [employer]NAGER [employer] SYSTEMS Outcome: 01:58 Discharge ordered by Provider. ck7 02:04 Discharge Assessment: patient administered narcotics - no. The following High Risk [facility] Discharge criteria are identified: None. Discharged to home ambulatory. Condition: good Condition: stable Condition: improved. No special radiology studies were completed. Property :Personal belongings accompany Pt. 02:05 Patient left the ED. slm 02:21 Patient left the ED. ck7 02:24 Patient left the ED. mm11 Signatures: Elyssa Muniz, RN RN Varun Singh DO DO mm11 Sue Castro,RN RN [email or web address] Silverio Reardon 6 Jr Joaquin, RPA-C RPA-Cck7 Anaid Christie Stephanie, LPN LPN slm Nunez, Nikkole, RN RN nn1 Juanita Cordova RN RN angelia2 Adam Goodwin, Reg Reg pm4 MTDD
--- NOTE | 2016-10-23 11:15 | REP ---
CHEST X-RAY PA AND LATERAL: 10/23/2016. Comparison 09/19/2016, 08/14/2016. Clinical history: Cough. Two-views show the lung campos well inflated and without pleural effusion, acute infiltrate, atelectasis or mass. The heart, mediastinal and hilar contours are normal. The airway is intact. Bony thorax shows no focal lesion. Impression: 1. No acute cardiopulmonary change, stable chest. Signed by Romeo Colunga MD 10/23/2016 07:33 P
--- NOTE | 2016-10-25 03:25 | EDDOCDS ---
Physician Documentation [facility] Name: Oxana Vazquez Age: 55 yrs Sex: Female : 1960 Arrival Date: 10/22/2016 Time: 23:10 Bed I3 / M3 Private MD: Federico White R. Disposition: 10/23/16 01:58 Discharged to Home/Self Care. Impression: Asthma, Acute bronchitis. - Condition is Stable. - Discharge Instructions: Acute Bronchitis, Asthma, Adult. - Prescriptions for Prednisone 20 mg Oral Tablet - take 2 tablet by ORAL route once daily for 5 days; 10 tablet. Zithromax 250 mg Oral Tablet - take 1 tablet by ORAL route once daily start tomorrow; 4 tablet. Albuterol Sulfate 90 mcg/actuation Inhalation HFA Aerosol Inhaler - inhale 2 puff by INHALATION route every 4 hours As needed; 1 Inhaler. - Medication Reconciliation, Local Pharmacy Hours form. - Follow up: Federico White; When: 2 - 3 days; Reason: Recheck today's complaints, Continuance of care. - Problem is new. - Symptoms have improved. Historical: - Allergies: NSAIDS (Non-Steroidal Anti-Inflammatory Drug); - Home Meds: 1. docusate 100mg twice a day 2. Effexor 150mg Oral daily 3. hydroxyzine HCl 25 mg Oral tab 1 tab daily 4. tramadol 50 mg Oral tab 1 tab every 4-6 hours as needed, at night 5. trazodone 100mg Oral once daily 6. Zyrtec 10 mg Oral tab 1 tab once daily - PMHx: Anxiety; Asthma; Chronic Back pain; Depression; Hypertension; insomnia; - PSHx: Tonsillectomy; Cholecystectomy; Hysterectomy; - Social history: Smoking status: Patient states former smoker of tobacco. No barriers to communication noted, The patient speaks fluent Belarusian, Speaks appropriately for age. - Family history: Not pertinent. - : The pt / caregiver states he / she is not on anticoagulants. Home medication list is obtained from the patient. - Exposure Risk Screening:: None identified. 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 7 in. (170.18 cm); Pain 9/10; 02 02:04 BP 148 / 89; Pulse 85; Resp 18; Temp 97.9(O); Pulse Ox 99% ; Pain 0/10; slm 10/22 23:11 Body Mass Index 32.89 (95.25 kg, 170.18 cm) sew MDM: 00:03 -Blood Culture (Adults Only), peripheral from different site, or from device/port/PICC ck7 etc. if present ordered. 00:03 IV Saline Lock ordered. ck7 00:03 Solu-MEDROL 125 mg IVP once ordered. ck7 00:03 Albuterol-Ipratropium 3 ml Inhalation once ordered. ck7 00:03 Call Respiratory ordered. ck7 00:04 CBC with Diff Ordered. EDMS 00:04 MED Profile Ordered. EDMS 00:04 -Blood Culture Ordered. EDMS 00:05 Chest, 2 View (pa\E\lat) Ordered. EDMS 00:06 Call Respiratory complete. nn1 00:12 -Blood Culture (Adults Only), peripheral from different site, or from device/port/PICC ajs etc. if present complete. 00:28 Financial registration complete. pm4 00:47 [facility] Payment Agreement was scanned into [employer] and attached to record. pm4 00:49 CBC with Diff Reviewed. ck7 00:49 MED Profile Reviewed. ck7 01:14 BLOOD CULTURES Ordered. EDMS 02:28 ED course: Z-PACK CALLED IN TO [facility], WRONG QUANTITY SCRIPT SENT VIA ck7 E-SCRIPT. 10:50 T-Sheet-- Draft Copy was scanned into [employer] and attached to record. gb Administered Medications: 00:18 Drug: Solu-MEDROL 125 mg [Solu-Medrol 500 mg intravenous solution (125 mg)] Route: IVP; ld5 Site: left antecubital; 00:22 Drug: Albuterol-Ipratropium 3 ml [ipratropium-albuterol 0.5 mg-3 mg(2.5 mg base)/3 mL jh6 nebulization soln (3 mL)] Route: Inhalation; Signatures: Dispatcher [employer] EDMS Deneen Kim, Reg Reg gb Varun Colby, DO DO mm11 Dinora Bernstein Christopher, RPA-C RPA-Cck7 Patience Lim LPN LPN Niecy Cardenas,RN RN nn1 Adam Goodwin, Reg Reg pm4 Sue Castro RN ld5 Silverio Reardon 6 The chart was reviewed and I authenticate all verbal orders and agree with the evaluation and treatment provided.Corrections: (The following items were deleted from the chart) 00:14 00:14 BLOOD CULTURES ordered. EDMS EDMS 00:14 00:14 BLOOD CULTURES ordered. EDMS EDMS Attachments: 00:47 [facility] Payment Agreement pm4 10:50 T-Sheet-- Draft Copy gb Chart Complete MTDD
--- NOTE | 2016-10-25 03:25 | EDDOCDS ---
Physician Documentation [facility] Name: Oxana Vazquez Age: 55 yrs Sex: Female : 1960 Arrival Date: 10/22/2016 Time: 23:10 Bed I3 / M3 Private MD: Federico White R. Disposition: 10/23/16 01:58 Discharged to Home/Self Care. Impression: Asthma, Acute bronchitis. - Condition is Stable. - Discharge Instructions: Acute Bronchitis, Asthma, Adult. - Prescriptions for Prednisone 20 mg Oral Tablet - take 2 tablet by ORAL route once daily for 5 days; 10 tablet. Zithromax 250 mg Oral Tablet - take 1 tablet by ORAL route once daily start tomorrow; 4 tablet. Albuterol Sulfate 90 mcg/actuation Inhalation HFA Aerosol Inhaler - inhale 2 puff by INHALATION route every 4 hours As needed; 1 Inhaler. - Medication Reconciliation, Local Pharmacy Hours form. - Follow up: Federico White; When: 2 - 3 days; Reason: Recheck today's complaints, Continuance of care. - Problem is new. - Symptoms have improved. Historical: - Allergies: NSAIDS (Non-Steroidal Anti-Inflammatory Drug); - Home Meds: 1. docusate 100mg twice a day 2. Effexor 150mg Oral daily 3. hydroxyzine HCl 25 mg Oral tab 1 tab daily 4. tramadol 50 mg Oral tab 1 tab every 4-6 hours as needed, at night 5. trazodone 100mg Oral once daily 6. Zyrtec 10 mg Oral tab 1 tab once daily - PMHx: Anxiety; Asthma; Chronic Back pain; Depression; Hypertension; insomnia; - PSHx: Tonsillectomy; Cholecystectomy; Hysterectomy; - Social history: Smoking status: Patient states former smoker of tobacco. No barriers to communication noted, The patient speaks fluent Hungarian, Speaks appropriately for age. - Family history: Not pertinent. - : The pt / caregiver states he / she is not on anticoagulants. Home medication list is obtained from the patient. - Exposure Risk Screening:: None identified. 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 7 in. (170.18 cm); Pain 9/10; 02 02:04 BP 148 / 89; Pulse 85; Resp 18; Temp 97.9(O); Pulse Ox 99% ; Pain 0/10; slm 10/22 23:11 Body Mass Index 32.89 (95.25 kg, 170.18 cm) sew MDM: 00:03 -Blood Culture (Adults Only), peripheral from different site, or from device/port/PICC ck7 etc. if present ordered. 00:03 IV Saline Lock ordered. ck7 00:03 Solu-MEDROL 125 mg IVP once ordered. ck7 00:03 Albuterol-Ipratropium 3 ml Inhalation once ordered. ck7 00:03 Call Respiratory ordered. ck7 00:04 CBC with Diff Ordered. EDMS 00:04 MED Profile Ordered. EDMS 00:04 -Blood Culture Ordered. EDMS 00:05 Chest, 2 View (pa\E\lat) Ordered. EDMS 00:06 Call Respiratory complete. nn1 00:12 -Blood Culture (Adults Only), peripheral from different site, or from device/port/PICC ajs etc. if present complete. 00:28 Financial registration complete. pm4 00:47 [facility] Payment Agreement was scanned into [employer] and attached to record. pm4 00:49 CBC with Diff Reviewed. ck7 00:49 MED Profile Reviewed. ck7 01:14 BLOOD CULTURES Ordered. EDMS 02:28 ED course: Z-PACK CALLED IN TO [facility], WRONG QUANTITY SCRIPT SENT VIA ck7 E-SCRIPT. 10:50 T-Sheet-- Draft Copy was scanned into [employer] and attached to record. gb Administered Medications: 00:18 Drug: Solu-MEDROL 125 mg [Solu-Medrol 500 mg intravenous solution (125 mg)] Route: IVP; ld5 Site: left antecubital; 00:22 Drug: Albuterol-Ipratropium 3 ml [ipratropium-albuterol 0.5 mg-3 mg(2.5 mg base)/3 mL jh6 nebulization soln (3 mL)] Route: Inhalation; Signatures: Dispatcher [employer] EDMS Deneen Kim, Reg Reg gb Varun Colby, DO DO mm11 Dinora Bernstein Christopher, RPA-C RPA-Cck7 Patience Lim LPN LPN Niecy Cardenas,RN RN nn1 Adam Goodwin, Reg Reg pm4 Sue Castro RN ld5 Silverio Reardon 6 The chart was reviewed and I authenticate all verbal orders and agree with the evaluation and treatment provided.Corrections: (The following items were deleted from the chart) 00:14 00:14 BLOOD CULTURES ordered. EDMS EDMS 00:14 00:14 BLOOD CULTURES ordered. EDMS EDMS Attachments: 00:47 [facility] Payment Agreement pm4 10:50 T-Sheet-- Draft Copy gb Chart Complete MTDD
--- NOTE | 2016-10-25 03:25 | EDDOCDS ---
Nurse's Notes [facility] Name: Oxana Vazquez Age: 55 yrs Sex: Female : 1960 Arrival Date: 10/22/2016 Time: 23:10 Bed I3 / M3 Private MD: Federico White R. Diagnosis: Asthma;Acute bronchitis Presentation: 10/22 23:13 Presenting complaint: Patient states: insurance would not cover Advair inhaler, states nn1 she has been using albuterol inhaler every 2 hours. Feels like lungs are closing up. Reports shortness of breath and productive cough. Reports symptoms x 2 weeks. Adult Sepsis Screening: The patient does not have new or worsening altered mentation. Patient's respiratory rate is less than 22. Systolic blood pressure is greater than 100. Patient has a qSOFA score of 0- Negative Sepsis Screen. Suicide/Homicide risk assessment- the patient denies having any suicidal and/or homicidal ideations and does not present with any other emotional, behavioral or mental health complaints. Status: Patient is not a business services director or dependent. Transition of care: patient was not received from another setting of care. 23:13 Acuity: ANABEL Level 3 nn1 23:13 Method Of Arrival: Walkin/Carried/Asstd nn1 Triage Assessment: 23:17 General: Appears uncomfortable, Behavior is appropriate for age, cooperative. Pain: nn1 Location: chest Pain currently is 9 out of 10 on a pain scale. Quality of pain is described as pressure, Aggravated by deep breathing. HIV screening NA for this visit Offered previously. Neurological: No deficits noted. Respiratory: Onset: The symptoms/episode began/occurred 2 weeks ago , Airway is patent Respiratory effort is even, Respiratory pattern is regular, symmetrical, Reports shortness of breath at rest on exertion cough that is productive, green/brown mucus production. Derm: Skin is pink, warm & dry. 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 docusate 100mg twice a day 2. Effexor 150mg Oral daily 3. hydroxyzine HCl 25 mg Oral tab 1 tab daily 4. tramadol 50 mg Oral tab 1 tab every 4-6 hours as needed, at night 5. trazodone 100mg Oral once daily 6. Zyrtec 10 mg Oral tab 1 tab once daily - PMHx: Anxiety; Asthma; Chronic Back pain; Depression; Hypertension; insomnia; - PSHx: Tonsillectomy; Cholecystectomy; Hysterectomy; - Social history: Smoking status: Patient states former smoker of tobacco. No barriers to communication noted, The patient speaks fluent Swedish, Speaks appropriately for age. - Family history: Not pertinent. - : The pt / caregiver states he / she is not on anticoagulants. Home medication list is obtained from the patient. - Exposure Risk Screening:: None identified. Screenin/11 02:03 Screening information is obtained from the patient. Fall risk: No risks identified. slm Assistance ADL's: requires no assistance with activities of daily living. Abuse/DV Screen: The patient / caregiver reports he/she is: not in a situation that causes fear, pain or injury. Nutritional screening: No deficits noted. Advance Directives: Currently, there is no health care proxy. There is no active DNR order. There is no living will. There is no Power of Fats And Oils Loader. home support is adequate. Assessment: 01:00 General: Appears in no apparent distress, comfortable, well nourished, well groomed, slm Behavior is appropriate for age, cooperative. Pain: Denies pain. Neurological: Level of Consciousness is awake, alert, Oriented to person, place, time. Cardiovascular: Rhythm is regular. Respiratory: Airway is patent Respiratory effort is even, unlabored, Respiratory pattern is regular, symmetrical, Breath sounds are diminished Breath sounds with wheezes inspiratory expiratory bilaterally. Derm: Skin is intact, Skin is dry, Skin is pink, warm & dry. Skin temperature is warm. Vital Signs: 10/22 23:11 BP 158 / 96; Pulse 96; Resp 18; Temp 99.5(O); Pulse Ox 96% on R/A; Weight 95.25 kg; sew Height 5 ft. 7 in. (170.18 cm); Pain 9/10; 10/23 02:04 BP 148 / 89; Pulse 85; Resp 18; Temp 97.9(O); Pulse Ox 99% ; Pain 0/10; slm 10/22 23:11 Body Mass Index 32.89 (95.25 kg, 170.18 cm) sew Vitals: 10/22 23:11 Log In Time: October 22, 2016 at 23:05. sew ED Course: 23:11 Patient visited by Anaid Christie. sew 23:11 Federico White is Private Physician. sew 23:11 Patient moved to Waiting sew 23:12 Patient visited by Anaid Christie. sew 23:12 Patient moved to Pre RCE sew 23:15 Triage Initiated nn1 23:45 Patient moved to Triage 2 mcp 23:59 Jr [facility]quin [facility] ck7 23:59 Varun Colby DO is Attending Physician. ck7 02 00:00 Patient visited by Jr Joaquin RPA-C. ck7 00:04 Patient moved to I3 / M3 mcp 00:18 -Blood Culture Sent. ld5 00:18 MED Profile Sent. ld5 00:19 Patient visited by Sue Castro RN. ld5 00:19 CBC with Diff Sent. ld5 00:19 Inserted saline lock: 20 gauge in left antecubital area and blood collected. The ld5 patient tolerated the procedure well. Labs drawn. (by ED staff). Sent per order to lab. 00:47 [facility] Payment Agreement was scanned into [employer] and attached to record. pm4 00:55 Patient visited by Junaita Cordova RN. kas2 01:37 Patient visited by Juanita Cordova RN. kas2 01:58 Federico White is Referral Physician. ck7 02:03 Patient visited by Patience Lim LPN. slm 02:04 Discontinued IV bleeding controlled, pressure dressing applied, No redness/swelling at slm site. No procedures done that require assistance. 02:05 The patient / caregiver is instructed regarding the plan of care and ED course. slm 10:50 T-Sheet-- Draft Copy was scanned into [employer] and attached to record. gb 11:24 Chest, 2 View (pa\E\lat) Returned. EDMS Administered Medications: 00:18 Drug: Solu-MEDROL 125 mg [Solu-Medrol 500 mg intravenous solution (125 mg)] Route: IVP; ld5 Site: left antecubital; 00:22 Drug: Albuterol-Ipratropium 3 ml [ipratropium-albuterol 0.5 mg-3 mg(2.5 mg base)/3 mL jh6 nebulization soln (3 mL)] Route: Inhalation; RT: 00:22 Initial Med Neb Given as ordered Patient was instructed and evaluated on procedure jh6 Patient tolerated procedure well without adverse effect. Respiratory: Airway is patent Respiratory effort is even, labored, Respiratory pattern is regular symmetrical, Breath sounds are clear in left posterior upper lobe, right posterior upper lobe, left posterior lower lobe, right posterior middle lobe and right posterior lower lobe Breath sounds are diminished in left posterior upper lobe, right posterior upper lobe, left posterior lower lobe, right posterior middle lobe and right posterior lower lobe. 00:31 Respiratory: Airway is patent Respiratory effort is even, unlabored, Respiratory jh6 pattern is regular Breath sounds are clear in left posterior upper lobe, right posterior upper lobe, left posterior lower lobe, right posterior middle lobe and right posterior lower lobe. Order Results: Lab Order: CBC with Diff; SPEC'M 10/23/16 00:13 Test: WHITE BLOOD COUNT; Value: 10.2; Range: 4.0-10.0; Abnormal: Above high normal; Units: K/mm3; Status: F Test: RED BLOOD COUNT; Value: 4.89; Range: 4.00-5.40; Units: M/mm3; Status: F Test: HEMOGLOBIN; Value: 15.0; Range: 12.0-16.0; Units: g/dl; Status: F Test: HEMATOCRIT; Value: 44.4; Range: 36.0-47.0; Units: %; Status: F Test: MEAN CORPUSCULAR VOLUME; Value: 90.7; Range: 80.0-96.0; Units: fl; Status: F Test: MEAN CORPUSCULAR HEMOGLOBIN; Value: 30.6; Range: 27.0-33.0; Units: pg; Status: F Test: MEAN CORPUSCULAR HGB CONC; Value: 33.7; Range: 32.0-36.5; Units: g/dl; Status: F Test: RED CELL DISTRIBUTION WIDTH; Value: 12.3; Range: 11.5-14.5; Units: %; Status: F Test: PLATELET COUNT, AUTOMATED; Value: 474; Range: 150-450; Abnormal: Above high normal; Units: k/mm3; Status: F Test: NEUTROPHILS %; Value: 54.8; Range: 36.0-66.0; Units: %; Status: F Test: LYMPH %; Value: 31.5; Range: 24.0-44.0; Units: %; Status: F Test: MONO %; Value: 5.9; Range: 0.0-5.0; Abnormal: Above high normal; Units: %; Status: F Test: EOS %; Value: 5.2; Range: 0.0-3.0; Abnormal: Above high normal; Units: %; Status: F Test: BASO %; Value: 0.9; Range: 0.0-1.0; Units: %; Status: F Test: LARGE UNSTAINED CELL %; Value: 1.8; Range: 0.0-4.0; Units: %; Status: F Test: NEUTROPHILS #; Value: 5.6; Range: 1.8-7.7; Units: K/mm3; Status: F Test: LYMPH #; Value: 3.2; Range: 1.5-4.5; Units: K/mm3; Status: F Test: MONO #; Value: 0.6; Range: 0.0-0.8; Units: K/mm3; Status: F Test: EOS #; Value: 0.5; Range: 0.0-0.50; Units: K/mm3; Status: F Test: BASO #; Value: 0.1; Range: 0.0-0.2; Units: K/mm3; Status: F Test: LARGE UNSTAINED CELL #; Value: 0.2; Range: 0.0-0.4; Units: K/mm3; Status: F Lab Order: MED Profile; [facility]' 10/23/16 00:13 Test: GLUCOSE, FASTING; Value: 146; Range: 70-105; Abnormal: Above high normal; Units: MG/DL; Status: F Test: BLOOD UREA NITROGEN; Value: 13; Range: 7-18; Units: MG/DL; Status: F Test: CREATININE FOR GFR; Value: 0.83; Range: 0.55-1.02; Units: MG/DL; Status: F Test: GLOMERULAR FILTRATION RATE; Value: > 60.0; Range: >51; Status: F Test: SODIUM LEVEL; Value: 142; Range: 136-145; Units: MEQ/L; Status: F Test: POTASSIUM SERUM; Value: 3.9; Range: 3.5-5.1; Units: MEQ/L; Status: F Test: CHLORIDE LEVEL; Value: 104; Range: 98-107; Units: MEQ/L; Status: F Test: CARBON DIOXIDE LEVEL; Value: 31; Range: 21-32; Units: MEQ/L; Status: F Test: ANION GAP; Value: 7; Range: 8-16; Abnormal: Below low normal; Units: MEQ/L; Status: F Test: CALCIUM LEVEL; Value: 9.3; Range: 8.5-10.1; Units: MG/DL; Status: F Test Note: ; Units are mL/min/1.73 m2 Chronic Kidney Disease Staging per NKF: Stage I & II GFR >=60 Normal to Mildly Decreased Stage III GFR 30-59 Moderately Decreased Stage IV GFR 15-29 Severely Decreased Stage V GFR <15 Very Little GFR Left ESRD GFR <15 on DIRECTOR OF FRONT OFFICE Lab Order: -Blood Culture; SPEC'M 10/23/16 00:13 Test: BLOOD CULTURE; Value: No growth after 24 hours . All specimens observed; Status: F Test: BLOOD CULTURE; Value: for 5 days. Results final at that time.; Status: F Test: BLOOD CULTURE; Value: No Growth after 48 hours. All Specimens observed; Status: F Test: BLOOD CULTURE; Value: for 7 days. Results final at that time.; Status: F Lab Order: BLOOD CULTURES; SPEC'M 10/23/16 01:19 Test: BLOOD CULTURE; Value: No growth after 24 hours . All specimens observed; Status: F Test: BLOOD CULTURE; Value: for 5 days. Results final at that time.; Status: F Test: BLOOD CULTURE; Value: No Growth after 48 hours. All Specimens observed; Status: F Test: BLOOD CULTURE; Value: for 7 days. Results final at that time.; Status: F Radiology Order: Chest, 2 View (pa\E\lat) Test: Chest, 2 View (pa\E\lat) REASON FOR EXAMINATION: Cough; CHEST X-RAY PA AND LATERAL: 10/23/2016.; ; Comparison 09/19/2016, 08/14/2016.; ; Clinical history: Cough.; ; Two-views show the lung campos well inflated and without pleural effusion, acute; infiltrate, atelectasis or mass. The heart, mediastinal and hilar contours are; normal. The airway is intact. Bony thorax shows no focal lesion.; ; Impression:; ; 1. No acute cardiopulmonary change, stable chest.; ; ; Signed by; Romeo Colunga MD 10/23/2016 07:33 P; Outcome: 01:58 Discharge ordered by Provider. ck7 02:04 Discharge Assessment: patient administered narcotics - no. The following High Risk [facility] Discharge criteria are identified: None. Discharged to home ambulatory. Condition: good Condition: stable Condition: improved. No special radiology studies were completed. Property :Personal belongings accompany Pt. 02:[address] [facility] 02:21 Patient left the ED. ck7 02:24 Patient left the ED. mm11 Signatures: Dispatcher [employer] EDMS Elyssa Muniz, RN RN Deneen Tripp, Reg Reg gb Varun Colby, DO DO mm11 Sue Castro RN RN ld5 Hollis, Jacob 6 Jr Joaquin, RPA-C RPA-Cck7 Anaid Christie Stephanie,OIL HEATER INSTALLER OIL HEATER INSTALLER slNiecy Allen RN RN nn1 Juanita Cordova RN RN kas2 Adam Goodwin, Reg Reg pm4 Chart Complete MTDD
== END 2016-10-23 02:24 | disposition home or self-care (01) ==
LOC: M ED 23:10
DX: J45.909 Unspecified asthma, uncomplicated (principal); F41.9 Anxiety disorder, unspecified; F32.9 Major depressive disorder, single episode, unspecified; I10 Essential (primary) hypertension; G47.00 Insomnia, unspecified; M54.9 Dorsalgia, unspecified; G89.29 Other chronic pain; Z87.891 Personal history of nicotine dependence; Z79.891 Long term (current) use of opiate analgesic; Z79.899 Other long term (current) drug therapy; Z88.6 Allergy status to analgesic agent
CPT/HCPCS: 36415; 71020; 80048; 85025; 87040; 94640; 96374; 99284; J2930

== ENCOUNTER 2016-11-03 20:43 | Emergency (ER) | payer OTHER ==
[2016-11-03] MEDS ORDERED: IPRATROPIUM 0.5MG/ALBUTEROL 2.5MG INH SOL UD 3ML (DUONEB)(J7620) As Ordered ONE (21:11)
[2016-11-03] MEDS ORDERED: methylPREDNISolone INJ 125 MG/2 ML VIAL (J2930) As Ordered ONE (21:13)
[2016-11-03] MEDS ORDERED: IPRATROPIUM 0.02% SOLN 0.5MG/2.5 ML NEB As Ordered ONE (21:44)
[2016-11-03] MEDS ORDERED: ACETAMINOPHEN/CODEINE #3 TABLET (BULK) As Ordered ONE (21:44)
--- NOTE | 2016-11-03 21:59 | EDDOCDS ---
Nurse's Notes [facility] Name: Oxana Vazquez Age: 56 yrs Sex: Female : 1960 Arrival Date: 11/03/2016 Time: 20:43 Bed I5 / M5 Private MD: Federico White R. Diagnosis: Unspecified asthma with (acute) exacerbation Presentation: 11/03 20:46 Presenting complaint: Patient states: per pt "my asthma is acting up", pt states that tm5 she started having trouble breathing last night & has been taking Albuterol Nebs at home with no relief, denies fevers. Adult Sepsis Screening: The patient does not have new or worsening altered mentation. Patient's respiratory rate is less than 22. Systolic blood pressure is greater than 100. Patient has a qSOFA score of 0- Negative Sepsis Screen. Suicide/Homicide risk assessment- the patient denies having any suicidal and/or homicidal ideations and does not present with any other emotional, behavioral or mental health complaints. Status: Patient is not a food service agent or dependent. Transition of care: patient was not received from another setting of care. 20:46 Acuity: ANABEL Level 3 tm5 20:46 Method Of Arrival: Walkin/Carried/Asstd tm5 Triage Assessment: 20:48 General: Appears in no apparent distress, Behavior is appropriate for age, cooperative. tm5 Pain: Denies pain. Pt Declines HIV testing. Neurological: Level of Consciousness is awake, alert, Oriented to person, place, time. Respiratory: Airway is patent Respiratory effort is even, unlabored, Respiratory pattern is regular, symmetrical. Derm: Skin is pink, warm & dry. Historical: - Allergies: NSAIDS (Non-Steroidal Anti-Inflammatory Drug); - Home Meds: 1. docusate 100mg twice a day 2. Effexor 150mg Oral daily 3. hydroxyzine HCl 25 mg Oral tab 1 tab daily 4. tramadol 50 mg Oral tab 1 tab every 4-6 hours as needed, at night 5. trazodone 100mg Oral once daily 6. Zyrtec 10 mg Oral tab 1 tab once daily 7. albuterol sulfate 2.5 mg /3 mL (0.083 %) Nebulizer nebu - PMHx: Anxiety; Asthma; Chronic Back pain; Depression; Hypertension; insomnia; - PSHx: none; - Social history: Smoking status: Patient states former smoker of tobacco. No barriers to communication noted, The patient speaks fluent Armenian. - Family history: Not pertinent. - : The pt / caregiver states he / she is not on anticoagulants. Home medication list is obtained from the patient. - Exposure Risk Screening:: None identified. Screenin:48 Screening information is obtained from the patient. Fall risk: No risks identified. tm5 Assistance ADL's: requires no assistance with activities of daily living. Abuse/DV Screen: The patient / caregiver reports he/she is: not in a situation that causes fear, pain or injury. Nutritional screening: No deficits noted. Advance Directives: Currently, there is no health care proxy. There is no active DNR order. home support is adequate. Assessment: 21:54 General: Appears in no apparent distress, comfortable, Behavior is appropriate for age, ms18 cooperative, pleasant. Pain: Denies pain. Neurological: Level of Consciousness is awake, alert, obeys commands, Oriented to person, place, time. Respiratory: Airway is patent Respiratory effort is even, unlabored, Respiratory pattern is regular, symmetrical, Breath sounds are clear bilaterally. 21:55 Cardiovascular: Chest pain is denied. GI: No deficits noted. Derm: Skin is pink, warm & ms18 dry. normal. Vital Signs: 20:45 BP 129 / 75; Pulse 85; Resp 18; Temp 99.1; Pulse Ox 98% ; Weight 99.79 kg; Height 5 ft. elp 8 in. (172.72 cm); 21:55 BP 122 / 88; Pulse 77; Resp 18; Temp 98.8; Pulse Ox 98% on R/A; Pain 0/10; ms18 20:45 Body Mass Index 33.45 (99.79 kg, 172.72 cm) [facility] Vitals: 20:45 Log In Time: November 03, 2016 at 20:43. [facility] ED Course: 20:44 Patient visited by Dilcia Yadav PCA. elp 20:44 Federico White is Private Physician. elp 20:44 Patient moved to Waiting elp 20:45 Patient visited by Dilcia Yadav PCA. elp 20:45 Patient moved to Pre RCE elp 20:47 Triage Initiated tm5 20:49 Patient moved to Triage 3 tm5 21:02 Hank Roe PA-C is PHCP. cc10 21:02 Yue Willis MD is Attending Physician. cc10 21:03 Patient visited by Hank Roe PA-C. cc10 21:03 Patient visited by Hank Roe PA-C. cc10 21:09 Patient moved to I5 / M5 lf1 21:10 [facility] Payment Agreement was scanned into [employer] and attached to record. gb 21:18 Patient visited by Gilda Gibson RN. lf1 21:38 Federico White is Referral Physician. cc10 21:55 The patient / caregiver is instructed regarding the plan of care and ED course. Patient ms18 has correct armband on for positive identification. Bed in low position. Property :Personal belongings accompany Pt. 21:55 No IV's were initiated during this patient's visit. No procedures done that require ms18 assistance. Administered Medications: 21:16 Drug: Albuterol-Ipratropium 3 ml [ipratropium-albuterol 0.5 mg-3 mg(2.5 mg base)/3 mL dk nebulization soln (3 mL)] Route: Inhalation; 21:18 Drug: methylPREDNISolone Sodium Succinate 125 mg [methylprednisolone sodium succ 125 mg [facility] solution for injection (125 mg)] Route: IM; Site: left vastus lateralus; 21:54 Drug: Atrovent - Ipratropium 500 mcg [ipratropium bromide 0.02 % solution for ms18 inhalation (2.5 mL)] Route: Nebulizer; 21:55 Drug: Acetaminophen-Codeine, 4 pack- 1 packets [acetaminophen 300 mg-codeine 30 mg ms18 tablet (1 tabs)] {Co-Signature: ttb (Sofia Cristina RN).} Route: PO; RT: 21:16 Initial Med Neb Given as ordered Patient was instructed and evaluated on procedure dk Patient tolerated procedure well without adverse effect. Oxygen is room air. Respiratory: Breath sounds are diminished bilaterally. Order Results: There are currently no results for this order. Outcome: 21:39 Discharge ordered by Provider. cc10 21:55 Discharge Assessment: Patient awake, alert and oriented x 3. No cognitive and/or ms18 functional deficits noted. Patient verbalized understanding of disposition instructions. patient administered narcotics - no. The following High Risk Discharge criteria are identified: None. Discharged to home ambulatory. Condition: good Condition: stable. Discharge instructions given to patient, Instructed on discharge instructions, follow up and referral plans. Demonstrated understanding of instructions, medications, Pt was receptive of discharge instructions/ teaching. Prescriptions given X 4. No special radiology studies were completed. 21:58 Patient left the ED. ms18 Signatures: Deneen Kim, Reg Reg gb Louisa Hill,RT RT Gilda Edgar,RN RN lf1 Dilcia Yadav, RAMP FLIGHT ATTENDANT RAMP FLIGHT ATTENDANT elp Hank Roe, PA-C PA-C cc10 Yamini Cordova,RN RN ms18 Aye Rodrigues,RN RN tm5 Sofia Cristina RN ttb MTDD
--- NOTE | 2016-11-03 21:59 | EDDOCDS ---
Physician Documentation [facility] Name: Oxana Vazquez Age: 56 yrs Sex: Female : 1960 Arrival Date: 11/03/2016 Time: 20:43 Bed I5 / M5 Private MD: Federico White R. Disposition: 11/03/16 21:39 Discharged to Home/Self Care. Impression: Unspecified asthma with (acute) exacerbation. - Condition is Stable. - Discharge Instructions: Asthma, Adult. - Prescriptions for budesonide 0.5 mg/2 mL Inhalation suspension for nebulization - inhale 2 milliliter by NEBULIZATION route 2 times per day; 30 ampule. Prednisone 20 mg Oral Tablet - take 1 tablet by ORAL route once daily for 5 days; 5 tablet. Singulair 10 mg Oral Tablet - take 1 tablet by ORAL route At bedtime; 20 tablet. benzonatate 200 mg Oral Capsule - take 1 capsule by ORAL route 3 times per day As needed; 30 capsule. - Medication Reconciliation form. - Follow up: Federico White; When: Call to arrange an appointment; Reason: Wound/Symptom Recheck, Recheck today's complaints, Worsening of conditions, Continuance of care. - Problem is an acute exacerbation. - Symptoms have improved. Historical: - Allergies: NSAIDS (Non-Steroidal Anti-Inflammatory Drug); - Home Meds: 1. docusate 100mg twice a day 2. Effexor 150mg Oral daily 3. hydroxyzine HCl 25 mg Oral tab 1 tab daily 4. tramadol 50 mg Oral tab 1 tab every 4-6 hours as needed, at night 5. trazodone 100mg Oral once daily 6. Zyrtec 10 mg Oral tab 1 tab once daily 7. albuterol sulfate 2.5 mg /3 mL (0.083 %) Nebulizer nebu - PMHx: Anxiety; Asthma; Chronic Back pain; Depression; Hypertension; insomnia; - PSHx: none; - Social history: Smoking status: Patient states former smoker of tobacco. No barriers to communication noted, The patient speaks fluent Maltese. - Family history: Not pertinent. - : The pt / caregiver states he / she is not on anticoagulants. Home medication list is obtained from the patient. - Exposure Risk Screening:: None identified. Vital Signs: 02/22 20:45 BP 129 / 75; Pulse 85; Resp 18; Temp 99.1; Pulse Ox 98% ; Weight 99.79 kg / 220 lbs; elp Height 5 ft. 8 in. (172.72 cm); 21:55 BP 122 / 88; Pulse 77; Resp 18; Temp 98.8; Pulse Ox 98% on R/A; Pain 0/10; ms18 20:45 Body Mass Index 33.45 (99.79 kg, 172.72 cm) elp MDM: 21:07 Albuterol-Ipratropium 3 ml Inhalation once ordered. cc10 21:07 Call Respiratory ordered. cc10 21:07 methylPREDNISolone Sodium Succinate 125 mg IM once ordered. cc10 21:08 Chest, 2 View (pa\E\lat) Ordered. EDMS 21:08 Financial registration complete. gb 21:10 [facility] Payment Agreement was scanned into [email or web address] and attached to record. gb 21:10 Call Respiratory complete. lf1 21:38 Atrovent - Ipratropium 500 mcg Nebulizer once; Please disp 2 with patient. 1 every 6 cc10 hours neb ordered. 21:42 Acetaminophen-Codeine, 4 pack- 300 mg-30 mg 1 packets PO once; Dispense with patient. cc10 Take per package instructions. ordered. Administered Medications: 21:16 Drug: Albuterol-Ipratropium 3 ml [ipratropium-albuterol 0.5 mg-3 mg(2.5 mg base)/3 mL dk nebulization soln (3 mL)] Route: Inhalation; 21:18 Drug: methylPREDNISolone Sodium Succinate 125 mg [methylprednisolone sodium succ 125 mg lf1 solution for injection (125 mg)] Route: IM; Site: left vastus lateralus; 21:54 Drug: Atrovent - Ipratropium 500 mcg [ipratropium bromide 0.02 % solution for ms18 inhalation (2.5 mL)] Route: Nebulizer; 21:55 Drug: Acetaminophen-Codeine, 4 pack- 1 packets [acetaminophen 300 mg-codeine 30 mg ms18 tablet (1 tabs)] {Co-Signature: ttb (Sofia Cristina RN).} Route: PO; Signatures: Dispatcher [employer] EDMS Deneen Kim, Reg Reg gb Gilda Gibson RN RN lf1 Hank Roe PALuizC PA-C cc10 Yamini Cordova RN RN ms18 Aye RodriguesRN RN tm5 Louisa Hill RT dk Sofia Cristina RN ttb The chart was reviewed and I authenticate all verbal orders and agree with the evaluation and treatment provided.Attachments: 21:10 [facility] Payment Agreement gb MTDD
--- NOTE | 2016-11-04 07:56 | REP ---
TWO VIEWS OF THE CHEST: The cardiomediastinal structures, lungs, diaphragms, and bony thorax are unremarkable for the age of the patient. No consolidation or masses identified. There are spurs of the spine. IMPRESSION: No acute cardiopulmonary disease. Unreviewed
--- NOTE | 2016-11-05 22:59 | EDDOCDS ---
Physician Documentation [facility] Name: Oxana Vazquez Age: 56 yrs Sex: Female : 1960 Arrival Date: 11/03/2016 Time: 20:43 Bed I5 / M5 Private MD: Federico White R. Disposition: 11/03/16 21:39 Discharged to Home/Self Care. Impression: Unspecified asthma with (acute) exacerbation. - Condition is Stable. - Discharge Instructions: Asthma, Adult. - Prescriptions for budesonide 0.5 mg/2 mL Inhalation suspension for nebulization - inhale 2 milliliter by NEBULIZATION route 2 times per day; 30 ampule. Prednisone 20 mg Oral Tablet - take 1 tablet by ORAL route once daily for 5 days; 5 tablet. Singulair 10 mg Oral Tablet - take 1 tablet by ORAL route At bedtime; 20 tablet. benzonatate 200 mg Oral Capsule - take 1 capsule by ORAL route 3 times per day As needed; 30 capsule. - Medication Reconciliation form. - Follow up: Federico White; When: Call to arrange an appointment; Reason: Wound/Symptom Recheck, Recheck today's complaints, Worsening of conditions, Continuance of care. - Problem is an acute exacerbation. - Symptoms have improved. Historical: - Allergies: NSAIDS (Non-Steroidal Anti-Inflammatory Drug); - Home Meds: 1. docusate 100mg twice a day 2. Effexor 150mg Oral daily 3. hydroxyzine HCl 25 mg Oral tab 1 tab daily 4. tramadol 50 mg Oral tab 1 tab every 4-6 hours as needed, at night 5. trazodone 100mg Oral once daily 6. Zyrtec 10 mg Oral tab 1 tab once daily 7. albuterol sulfate 2.5 mg /3 mL (0.083 %) Nebulizer nebu - PMHx: Anxiety; Asthma; Chronic Back pain; Depression; Hypertension; insomnia; - PSHx: none; - Social history: Smoking status: Patient states former smoker of tobacco. No barriers to communication noted, The patient speaks fluent Egyptian. - Family history: Not pertinent. - : The pt / caregiver states he / she is not on anticoagulants. Home medication list is obtained from the patient. - Exposure Risk Screening:: None identified. Vital Signs: 11/03 20:45 BP 129 / 75; Pulse 85; Resp 18; Temp 99.1; Pulse Ox 98% ; Weight 99.79 kg / 220 lbs; elp Height 5 ft. 8 in. (172.72 cm); 21:55 BP 122 / 88; Pulse 77; Resp 18; Temp 98.8; Pulse Ox 98% on R/A; Pain 0/10; ms18 20:45 Body Mass Index 33.45 (99.79 kg, 172.72 cm) elp MDM: 21:07 Albuterol-Ipratropium 3 ml Inhalation once ordered. cc10 21:07 Call Respiratory ordered. cc10 21:07 methylPREDNISolone Sodium Succinate 125 mg IM once ordered. cc10 21:08 Chest, 2 View (pa\E\lat) Ordered. EDMS 21:08 Financial registration complete. gb 21:10 [facility] Payment Agreement was scanned into [employer] and attached to record. gb 21:10 Call Respiratory complete. lf1 21:38 Atrovent - Ipratropium 500 mcg Nebulizer once; Please disp 2 with patient. 1 every 6 cc10 hours neb ordered. 21:42 Acetaminophen-Codeine, 4 pack- 300 mg-30 mg 1 packets PO once; Dispense with patient. cc10 Take per package instructions. ordered. 11/04 19:06 T-Sheet-- Draft Copy was scanned into [employer] and attached to record. klr Administered Medications: 11/03 21:16 Drug: Albuterol-Ipratropium 3 ml [ipratropium-albuterol 0.5 mg-3 mg(2.5 mg base)/3 mL dk nebulization soln (3 mL)] Route: Inhalation; 21:18 Drug: methylPREDNISolone Sodium Succinate 125 mg [methylprednisolone sodium succ 125 mg lf1 solution for injection (125 mg)] Route: IM; Site: left vastus lateralus; 21:54 Drug: Atrovent - Ipratropium 500 mcg [ipratropium bromide 0.02 % solution for ms18 inhalation (2.5 mL)] Route: Nebulizer; 21:55 Drug: Acetaminophen-Codeine, 4 pack- 1 packets [acetaminophen 300 mg-codeine 30 mg ms18 tablet (1 tabs)] {Co-Signature: ttb (Sofia Cristina RN).} Route: PO; Signatures: Dispatcher [employer] EDMS Deneen Kim, Reg Reg gb Gibson,Gilda,RN RN lf1 Hank Roe PA-C PA-C cc10 Yamini Cordova RN RN ms18 Carlota Sanders Tonya, RN RN tm5 Louisa Hill RT dk Sofia Cristina RN ttb The chart was reviewed and I authenticate all verbal orders and agree with the evaluation and treatment provided.Attachments: 21:10 [facility] [place] Agreement gb 11/04 19:06 T-Sheet-- Draft Copy klr Chart Complete MTDD
--- NOTE | 2016-11-05 22:59 | EDDOCDS ---
Physician Documentation [facility] Name: Oxana Vazquez Age: 56 yrs Sex: Female : 1960 Arrival Date: 11/03/2016 Time: 20:43 Bed I5 / M5 Private MD: Federico White R. Disposition: 11/03/16 21:39 Discharged to Home/Self Care. Impression: Unspecified asthma with (acute) exacerbation. - Condition is Stable. - Discharge Instructions: Asthma, Adult. - Prescriptions for budesonide 0.5 mg/2 mL Inhalation suspension for nebulization - inhale 2 milliliter by NEBULIZATION route 2 times per day; 30 ampule. Prednisone 20 mg Oral Tablet - take 1 tablet by ORAL route once daily for 5 days; 5 tablet. Singulair 10 mg Oral Tablet - take 1 tablet by ORAL route At bedtime; 20 tablet. benzonatate 200 mg Oral Capsule - take 1 capsule by ORAL route 3 times per day As needed; 30 capsule. - Medication Reconciliation form. - Follow up: Federico White; When: Call to arrange an appointment; Reason: Wound/Symptom Recheck, Recheck today's complaints, Worsening of conditions, Continuance of care. - Problem is an acute exacerbation. - Symptoms have improved. Historical: - Allergies: NSAIDS (Non-Steroidal Anti-Inflammatory Drug); - Home Meds: 1. docusate 100mg twice a day 2. Effexor 150mg Oral daily 3. hydroxyzine HCl 25 mg Oral tab 1 tab daily 4. tramadol 50 mg Oral tab 1 tab every 4-6 hours as needed, at night 5. trazodone 100mg Oral once daily 6. Zyrtec 10 mg Oral tab 1 tab once daily 7. albuterol sulfate 2.5 mg /3 mL (0.083 %) Nebulizer nebu - PMHx: Anxiety; Asthma; Chronic Back pain; Depression; Hypertension; insomnia; - PSHx: none; - Social history: Smoking status: Patient states former smoker of tobacco. No barriers to communication noted, The patient speaks fluent Portuguese. - Family history: Not pertinent. - : The pt / caregiver states he / she is not on anticoagulants. Home medication list is obtained from the patient. - Exposure Risk Screening:: None identified. Vital Signs: 11/03 20:45 BP 129 / 75; Pulse 85; Resp 18; Temp 99.1; Pulse Ox 98% ; Weight 99.79 kg / 220 lbs; elp Height 5 ft. 8 in. (172.72 cm); 21:55 BP 122 / 88; Pulse 77; Resp 18; Temp 98.8; Pulse Ox 98% on R/A; Pain 0/10; ms18 20:45 Body Mass Index 33.45 (99.79 kg, 172.72 cm) elp MDM: 21:07 Albuterol-Ipratropium 3 ml Inhalation once ordered. cc10 21:07 Call Respiratory ordered. cc10 21:07 methylPREDNISolone Sodium Succinate 125 mg IM once ordered. cc10 21:08 Chest, 2 View (pa\E\lat) Ordered. EDMS 21:08 Financial registration complete. gb 21:10 [facility] Payment Agreement was scanned into [employer] and attached to record. gb 21:10 Call Respiratory complete. lf1 21:38 Atrovent - Ipratropium 500 mcg Nebulizer once; Please disp 2 with patient. 1 every 6 cc10 hours neb ordered. 21:42 Acetaminophen-Codeine, 4 pack- 300 mg-30 mg 1 packets PO once; Dispense with patient. cc10 Take per package instructions. ordered. 11/04 19:06 T-Sheet-- Draft Copy was scanned into [employer] and attached to record. klr Administered Medications: 11/03 21:16 Drug: Albuterol-Ipratropium 3 ml [ipratropium-albuterol 0.5 mg-3 mg(2.5 mg base)/3 mL dk nebulization soln (3 mL)] Route: Inhalation; 21:18 Drug: methylPREDNISolone Sodium Succinate 125 mg [methylprednisolone sodium succ 125 mg lf1 solution for injection (125 mg)] Route: IM; Site: left vastus lateralus; 21:54 Drug: Atrovent - Ipratropium 500 mcg [ipratropium bromide 0.02 % solution for ms18 inhalation (2.5 mL)] Route: Nebulizer; 21:55 Drug: Acetaminophen-Codeine, 4 pack- 1 packets [acetaminophen 300 mg-codeine 30 mg ms18 tablet (1 tabs)] {Co-Signature: ttb (Sofia Cristina RN).} Route: PO; Signatures: Dispatcher [employer] EDMS Deneen Kim, Reg Reg gb Gibson,Gilda,RN RN lf1 Hank Roe PA-C PA-C cc10 Yamini Cordova RN RN ms18 Carlota Sanders Tonya, RN RN tm5 Louisa Hill RT dk Sofia Cristina RN ttb The chart was reviewed and I authenticate all verbal orders and agree with the evaluation and treatment provided.Attachments: 21:10 [facility] [place] gb 11/04 19:06 T-Sheet-- Draft Copy klr Chart Complete MTDD
--- NOTE | 2016-11-05 22:59 | EDDOCDS ---
Nurse's Notes [facility] Name: Oxana Vazquez Age: 56 yrs Sex: Female : 1960 Arrival Date: 11/03/2016 Time: 20:43 Bed I5 / M5 Private MD: Federico White R. Diagnosis: Unspecified asthma with (acute) exacerbation Presentation: 11/03 20:46 Presenting complaint: Patient states: per pt "my asthma is acting up", pt states that tm5 she started having trouble breathing last night & has been taking Albuterol Nebs at home with no relief, denies fevers. Adult Sepsis Screening: The patient does not have new or worsening altered mentation. Patient's respiratory rate is less than 22. Systolic blood pressure is greater than 100. Patient has a qSOFA score of 0- Negative Sepsis Screen. Suicide/Homicide risk assessment- the patient denies having any suicidal and/or homicidal ideations and does not present with any other emotional, behavioral or mental health complaints. Status: Patient is not a service station operator or dependent. Transition of care: patient was not received from another setting of care. 20:46 Acuity: ANABEL Level 3 tm5 20:46 Method Of Arrival: Walkin/Carried/Asstd tm5 Triage Assessment: 20:48 General: Appears in no apparent distress, Behavior is appropriate for age, cooperative. tm5 Pain: Denies pain. Pt Declines HIV testing. Neurological: Level of Consciousness is awake, alert, Oriented to person, place, time. Respiratory: Airway is patent Respiratory effort is even, unlabored, Respiratory pattern is regular, symmetrical. Derm: Skin is pink, warm & dry. Historical: - Allergies: NSAIDS (Non-Steroidal Anti-Inflammatory Drug); - Home Meds: 1. docusate 100mg twice a day 2. Effexor 150mg Oral daily 3. hydroxyzine HCl 25 mg Oral tab 1 tab daily 4. tramadol 50 mg Oral tab 1 tab every 4-6 hours as needed, at night 5. trazodone 100mg Oral once daily 6. Zyrtec 10 mg Oral tab 1 tab once daily 7. albuterol sulfate 2.5 mg /3 mL (0.083 %) Nebulizer nebu - PMHx: Anxiety; Asthma; Chronic Back pain; Depression; Hypertension; insomnia; - PSHx: none; - Social history: Smoking status: Patient states former smoker of tobacco. No barriers to communication noted, The patient speaks fluent Bengali. - Family history: Not pertinent. - : The pt / caregiver states he / she is not on anticoagulants. Home medication list is obtained from the patient. - Exposure Risk Screening:: None identified. Screenin:48 Screening information is obtained from the patient. Fall risk: No risks identified. tm5 Assistance ADL's: requires no assistance with activities of daily living. Abuse/DV Screen: The patient / caregiver reports he/she is: not in a situation that causes fear, pain or injury. Nutritional screening: No deficits noted. Advance Directives: Currently, there is no health care proxy. There is no active DNR order. home support is adequate. Assessment: 21:54 General: Appears in no apparent distress, comfortable, Behavior is appropriate for age, ms18 cooperative, pleasant. Pain: Denies pain. Neurological: Level of Consciousness is awake, alert, obeys commands, Oriented to person, place, time. Respiratory: Airway is patent Respiratory effort is even, unlabored, Respiratory pattern is regular, symmetrical, Breath sounds are clear bilaterally. 21:55 Cardiovascular: Chest pain is denied. GI: No deficits noted. Derm: Skin is pink, warm & ms18 dry. normal. Vital Signs: 20:45 BP 129 / 75; Pulse 85; Resp 18; Temp 99.1; Pulse Ox 98% ; Weight 99.79 kg; Height 5 ft. elp 8 in. (172.72 cm); 21:55 BP 122 / 88; Pulse 77; Resp 18; Temp 98.8; Pulse Ox 98% on R/A; Pain 0/10; ms18 20:45 Body Mass Index 33.45 (99.79 kg, 172.72 cm) [facility] Vitals: 20:45 Log In Time: November 03, 2016 at 20:43. [facility] ED Course: 20:44 Patient visited by Dilcia Yadav PCA. elp 20:44 Federico White is Private Physician. elp 20:44 Patient moved to Waiting elp 20:45 Patient visited by Dilcia Yadav PCA. elp 20:45 Patient moved to Pre RCE elp 20:47 Triage Initiated tm5 20:49 Patient moved to Triage 3 tm5 21:02 Hank Roe PA-C is PHCP. cc10 21:02 Yue Willis MD is Attending Physician. cc10 21:03 Patient visited by Hank Roe PA-C. cc10 21:03 Patient visited by Hank Roe PA-C. cc10 21:09 Patient moved to I5 / lf1 21:10 [facility] Payment Agreement was scanned into [employer] and attached to record. gb 21:18 Patient visited by Gilda Gibson RN. lf1 21:38 Federico White is Referral Physician. cc10 21:55 The patient / caregiver is instructed regarding the plan of care and ED course. Patient ms18 has correct armband on for positive identification. Bed in low position. Property :Personal belongings accompany Pt. 21:55 No IV's were initiated during this patient's visit. No procedures done that require ms18 assistance. 11/04 08:33 Chest, 2 View (pa\\E\\lat) Returned. EDMS 19:06 T-Sheet-- Draft Copy was scanned into [employer] and attached to record. klr Administered Medications: 11/03 21:16 Drug: Albuterol-Ipratropium 3 ml [ipratropium-albuterol 0.5 mg-3 mg(2.5 mg base)/3 mL dk nebulization soln (3 mL)] Route: Inhalation; 21:18 Drug: methylPREDNISolone Sodium Succinate 125 mg [methylprednisolone sodium succ 125 mg lf1 solution for injection (125 mg)] Route: IM; Site: left vastus lateralus; 21:54 Drug: Atrovent - Ipratropium 500 mcg [ipratropium bromide 0.02 % solution for ms18 inhalation (2.5 mL)] Route: Nebulizer; 21:55 Drug: Acetaminophen-Codeine, 4 pack- 1 packets [acetaminophen 300 mg-codeine 30 mg ms18 tablet (1 tabs)] {Co-Signature: ttb (Sofia Cristina RN).} Route: PO; RT: 21:16 Initial Med Neb Given as ordered Patient was instructed and evaluated on procedure dk Patient tolerated procedure well without adverse effect. Oxygen is room air. Respiratory: Breath sounds are diminished bilaterally. Order Results: Radiology Order: Chest, 2 View (pa\\E\\lat) Test: Chest, 2 View (pa\\E\\lat) REASON FOR EXAMINATION: Cough; ; TWO VIEWS OF THE CHEST:; ; The cardiomediastinal structures, lungs, diaphragms, and bony thorax are; unremarkable for the age of the patient.; ; No consolidation or masses identified. There are spurs of the spine.; ; IMPRESSION:; No acute cardiopulmonary disease.; ; ; ; Unreviewed; Outcome: 21:39 Discharge ordered by Provider. cc10 21:55 Discharge Assessment: Patient awake, alert and oriented x 3. No cognitive and/or ms18 functional deficits noted. Patient verbalized understanding of disposition instructions. patient administered narcotics - no. The following High Risk Discharge criteria are identified: None. Discharged to home ambulatory. Condition: good Condition: stable. Discharge instructions given to patient, Instructed on discharge instructions, follow up and referral plans. Demonstrated understanding of instructions, medications, Pt was receptive of discharge instructions/ teaching. Prescriptions given X 4. No special radiology studies were completed. 21:58 Patient left the ED. ms18 Signatures: Dispatcher [employer] EDMS Deneen Kim, Reg Reg gb Louisa Hill,RT RT Gilda EdgarRN RN lf1 Dilcia Yadav, MANAGER BRIDGE MANAGER BRIDGE elp Hank Roe, PA-C PA-C cc10 Yamini Cordova,RN RN ms18 Carlota Sanders TonyaRN RN tm5 Sofia Cristina RN ttb Chart Complete MTDD
== END 2016-11-03 21:58 | disposition home or self-care (01) ==
LOC: M ED 20:43
DX: J45.901 Unspecified asthma with (acute) exacerbation (principal); F41.9 Anxiety disorder, unspecified; M54.9 Dorsalgia, unspecified; F32.9 Major depressive disorder, single episode, unspecified; I10 Essential (primary) hypertension; G47.00 Insomnia, unspecified; Z87.891 Personal history of nicotine dependence; Z79.899 Other long term (current) drug therapy; Z88.6 Allergy status to analgesic agent
CPT/HCPCS: 71020; 94640; 96372; 99283; J2930

== ENCOUNTER 2016-11-16 13:41 | Inpatient (IN) | payer OTHER ==
[~2016-11-16] VITALS: Ht 172.7 cm; Wt 100.7 kg
[2016-11-16] MEDS ORDERED: OMEP40CA2 (14:45)
[2016-11-16] MEDS ORDERED: MONT10TA2 (14:45)
[2016-11-16] MEDS ORDERED: DOCQ100C (14:45)
[2016-11-16] MEDS ORDERED: TRAM50TA2 (14:45)
[2016-11-16] MEDS ORDERED: ALBU17IN (14:45)
[2016-11-16] MEDS ORDERED: VENL75CA47 (14:45)
[2016-11-16] MEDS ORDERED: TRAZ100T4 (14:45)
[2016-11-16] MEDS ORDERED: PRED20TA (14:45)
[2016-11-16] MEDS ORDERED: LISI-538 (14:45)
[2016-11-16] MEDS ORDERED: HYDR25T (14:45)
[2016-11-16] MEDS ORDERED: BENZ200C44 (14:45)
[2016-11-16] MEDS ORDERED: ARNU1INH (14:45)
[2016-11-16 16:31] LABS: MEAN CORPUSCULAR HEMOGLOBIN 31.5 pg (27.0-33.0); MEAN CORPUSCULAR HGB CONC 33.9 g/dl (32.0-36.5); MEAN CORPUSCULAR VOLUME 92.7 fl (80.0-96.0); RED CELL DISTRIBUTION WIDTH 12.6 % (11.5-14.5); WHITE BLOOD COUNT 7.5 K/mm3 (4.0-10.0)
[2016-11-16 16:50] LABS: METHADONE URINE NEGATIVE (NEGATIVE)
[2016-11-16 17:02] LABS: ALBUMIN 3.7 GM/DL (3.2-5.2); ALBUMIN/GLOBULIN RATIO 1.09 (1.00-1.93); ALKALINE PHOSPHATASE 109 U/L (45-117); ALT/SGPT 43 U/L (12-78); ANION GAP 6 MEQ/L (8-16); AST/SGOT 21 U/L (15-37); BILIRUBIN,DIRECT < 0.1 MG/DL (0.0-0.2); BILIRUBIN,TOTAL 0.4 MG/DL (0.2-1.0); BLOOD UREA NITROGEN 11 MG/DL (7-18); CALCIUM LEVEL 8.9 MG/DL (8.5-10.1); CARBON DIOXIDE LEVEL 31 MEQ/L (21-32); CHLORIDE LEVEL 105 MEQ/L (98-107); CREATININE FOR GFR 0.74 MG/DL (0.55-1.02); GLOMERULAR FILTRATION RATE > 60.0 (>51); GLUCOSE, FASTING 80 MG/DL (70-105); POTASSIUM SERUM 4.5 MEQ/L (3.5-5.1); SODIUM LEVEL 142 MEQ/L (136-145); TOTAL PROTEIN 7.1 GM/DL (6.4-8.2)
[2016-11-16] MEDS ORDERED: ACETAMINOPHEN TAB 650MG DOSE (2X325MG) PO ONE (17:15)
[2016-11-16] MEDS ORDERED: HYDR25T PO (18:21)
[2016-11-16] MEDS ORDERED: COLA100C PO (18:21)
[2016-11-16] MEDS ORDERED: TRAM50TA2 PO (18:21)
[2016-11-16] MEDS ORDERED: MONT10TA2 PO (18:21)
[2016-11-16] MEDS ORDERED: VENL225T PO (18:21)
[2016-11-16] MEDS ORDERED: ARNU1INH INH (18:21)
[2016-11-16] MEDS ORDERED: ALBU83IN INH (18:21)
[2016-11-16] MEDS ORDERED: ALBU17IN INH (18:21)
[2016-11-16] MEDS ORDERED: LISI-538 PO (18:21)
[2016-11-16] MEDS ORDERED: OMEP40CA2 PO (18:21)
[2016-11-16] MEDS ORDERED: TRAZ100T4 PO (18:21)
[2016-11-16] MEDS ORDERED: ALBUTEROL 90 MCG/ACT 8GM HFA INHALER INH ONE (20:30)
[2016-11-16 21:55] VITALS: BP 127/72
[2016-11-17] MEDS ORDERED: MAALOX 30 ML SUSP *UDC PO PRN
[2016-11-17] MEDS ORDERED: MOM 30ML SUSPENSION UDC PO PRN
[2016-11-17] MEDS ORDERED: ALBUTEROL SULFATE 2.5 MG/0.5 ML INH NEB SOLN NEB PRN
[2016-11-17] MEDS: MONTELUKAST 10 MG TAB PO SCH ×2 (00:50→20:15)
[2016-11-17] MEDS: traZODone 100 MG TAB PO PRN ×2 (00:50→23:00)
[2016-11-17] MEDS: OMEPRAZOLE 20 MG CAP PO SCH ×2 (00:50→20:15)
[2016-11-17] MEDS: DOCUSATE SODIUM 100 MG CAP PO SCH ×2 (00:50→20:15)
[2016-11-17] MEDS: ALBUTEROL 90 MCG/ACT 8GM HFA INHALER INH PRN ×5 (01:33→20:18)
[2016-11-17] MEDS ORDERED: VENLAFAXINE **XR** 75MG CAPSULE PO SCH (09:00)
[2016-11-17] MEDS: LISINOPRIL 20 MG TAB PO SCH (09:08)
[2016-11-17] MEDS: ARNUITY ELLIPTA 100 MCG INH SCH (10:01)
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
--- NOTE | 2016-11-17 11:54 | HPEPDOC ---
Medical History and Physical Date of Admission Nov 16, 2016 at 20:31 History and Physical PCP: Federico VIDES ATTENDING: Dr. Grupo Romero HPI: 56yoM admitted to [facility] for other depressive disorder, being medically examined today. No acute medical complaints today. Denies any fevers, chills, weakness, fatigue, DAWSON, CP, SOB, cough, palpitations, abdominal pain, N/V/D or changes in bowel or bladder habits. PMHx: Depression Anxiety Insomnia Asthma Hypertension GERD Chronic low back pain Allergic rhinitis PSHX: Appendectomy Cholecystectomy Hysterectomy SOCHX: Resides in: [facility] Marital Status: Kids: 4 Employment: Unemployed Tobacco use: One cigarette per day ETOH: Denies Illicit Drugs: Denies IV Drug Use: Denies Tattoos done unprofessionally: Denies FAMHX: Mother: Alive, well Father: Alive, CAD, diabetes Siblings: One brother Alive, unknown Children: Alive, asthma Unexpected deaths due to medical reasons: None. ROS: As noted in HPI, otherwise 11pt ROS of systems reviewed and remarkable only for LMP NA, hysterectomy. PE: GEN: 56 yo F, appears stated age. Well-nourished, well developed. No acute distress. Alert and oriented x 3. Pleasant, interactive. HEENT: Normocephalic, atraumatic. Pupils are equal, round, and reactive to light. Extraocular movements are intact. No nystagmus appreciated. Sclera are nonicteric. Conjunctiva without injection. Nose midline. Nasal turbinates without bogginess. EACs both patent BL. TMs both visualized and silva with good cone of light, no bulging or erythema. No facial asymmetry. Moist mucous membranes. Dentition fair. Pharynx pink and moist, no cobblestoning. Neck supple , trachea midline. No lymphadenopathy or thyromegaly appreciated. CHEST: Regular rate and rhythm, +S1, +S2 LUNGS: Clear to auscultation bilaterally. No wheezes, rales, or rhonchi. Breathing appears symmetric and easy. Patient is speaking in full sentences. No accessory muscle use. ABD: Round, soft, non-tender, non-distended. +Bowel sounds throughout. No rebound or guarding. No costovertebral angle tenderness. EXT: Pulses 2+ bilaterally dorsalis pedis and radial. No lower extremity edema appreciated. SKIN: [place], dry, warm. Capillary refill <2sec. No rashes. NEURO: Alert and oriented x 3. Cranial nerves III-XII are intact. No focal deficits appreciated. EK09/19/16 SINUS RHYTHM POSSIBLE LAE PRIOR INFERIOR INFARCT NO PRIORS A&P: 56yoM admitted to [facility] for other depressive disorder 1. Psych. Plan per Psychiatry. EKG on file. 2. Nicotine dependence. Patch available. 3. Asthma. Continue with patient's home Arnuity Ellipta one inhalation daily. Continue Singulair 10 mg daily. Continue with albuterol HFA 2 puffs every 4 hours as needed and nebulizer as needed. 4. Follow up with PCP on discharge. 5. Allergic rhinitis. Continue Zyrtec 10 mg daily. Flonase nasal spray 2 sprays daily. 6. Hypertension. Continue lisinopril 20 mg daily. 7. GERD. Continue Prilosec 40 mg daily. 8. Chronic low back pain. Continue tramadol 50 mg every 6 hours as needed for pain. Continue Colace 200 mg daily at bedtime. 9. Elevated TSH. Recheck TSH and free T4. 10. Staff member present throughout exam, Elis JON. Vital Signs Vital Signs Label Value Date Time Patient Temperature 97.7 degrees F 11/16/162154 Temperature Source Tympanic 11/16/162154 Pulse 73 11/16/162154 Respiratory Rate 20 bpm 11/16/162154 Blood Pressure Assessment 127/72 (90) 11/16/162154 Bedside Pulse Oximetry 96 % 11/16/162154 Item Value Date Time Oxygen Delivery Method Room Air 11/16/162154 Laboratory Data Labs 24H Laboratory Tests 2 11/16/16 16:17: Acetaminophen Level < 2.0L, Aspartate Amino Transf (AST/SGOT) 21, Alanine Aminotransferase (ALT/SGPT) 43, Alkaline Phosphatase 109, Total Bilirubin 0.4, Direct Bilirubin < 0.1, Albumin 3.7, Albumin/Globulin Ratio 1.09, Anion Gap 6L, Calcium Level 8.9, Ethyl Alcohol Level < 0.003, Glomerular Filtration Rate > 60.0, Salicylates Level 2.1L, Thyroid Stimulating Hormone (TSH) 5.700H, Total Protein 7.1, Urine Amphetamines Screen NEGATIVE, Urine Benzodiazepines Screen NEGATIVE, Urine Opiates Screen NEGATIVE, Urine Barbiturates Screen NEGATIVE, Urine Cannabinoids Screen NEGATIVE, Urine Cocaine Metabolite Screen NEGATIVE, Urine Methadone Screen NEGATIVE, Urine Phencyclidine Screen NEGATIVE CBC/BMP Laboratory Tests 11/16/16 16:17 Red Blood Count 4.46, Mean Corpuscular Volume 92.7, Mean Corpuscular Hemoglobin 31.5, Mean Corpuscular Hemoglobin Concent 33.9, Red Cell Distribution Width 12.6 Home Medications Scheduled (Arnuity Ellipta) 100 Mcg/Act Inh 100 MCG INH DAILY Docusate Sodium (Colace) 100 Mg Cap 200 MG PO QHS Lisinopril (Lisinopril) 20 Mg Tab 20 MG PO DAILY Montelukast Sodium (Montelukast Sodium) 10 Mg Tab 10 MG PO QHS Omeprazole (Omeprazole) 40 Mg Cap 40 MG PO QHS Venlafaxine Hydrochloride (Venlafaxine HCl ER) 225 Mg Tab 225 MG PO DAILY Scheduled PRN Albuterol Sulfate (Ventolin Hfa) 200 Puff/8 Gm Aers 2 PUFF INH QID PRN PRN SHORTNESS OF BREATH Albuterol Sulfate (Albuterol Sulfate) 2.5 Mg/3 Ml Nebu 2.5 MG INH Q6H PRN PRN SHORTNESS OF BREATH Hydroxyzine HCl (Hydroxyzine HCl) 25 Mg Tab 25 MG PO PRN ANXIETY Tramadol HCl (Tramadol HCl) 50 Mg Tab 50 MG PO Q6H PRN PRN PAIN Trazodone HCl (Trazodone HCl) 100 Mg Tab 100 MG PO QHS PRN PRN SLEEP Allergies Coded Allergies: Aspirin (Unverified Allergy, Unknown, 12/19/12) Ibuprofen (Unverified Allergy, Unknown, 12/19/12) NSAIDs (Unverified Allergy, Unknown, 11/16/16) Ekaterina Reed Nov 17, 2016 11:54
[2016-11-17] MEDS: CETIRIZINE (ZyrTEC) 10 MG TAB PO SCH (12:20)
[2016-11-17] MEDS: FLUTICASONE PROP 0.05% NASAL SPRAY 16 GM (FLONASE) SCH (13:21)
[2016-11-17 18:00] VITALS: BP 125/60
[2016-11-17] MEDS ORDERED: CEPACOL LOZENGE PO PRN (18:45)
[2016-11-17] MEDS: traMADol 50 MG TAB PO PRN (22:10)
[2016-11-17] MEDS: hydrOXYzine 25 MG TAB PO PRN (22:10)
[2016-11-17] MEDS: ALBUTEROL SULFATE 2.5 MG/0.5 ML INH NEB SOLN NEB PRN (22:40)
[2016-11-18 06:37] VITALS: BP 114/56
[2016-11-18] MEDS: ALBUTEROL 90 MCG/ACT 8GM HFA INHALER INH PRN ×4 (07:38→20:57)
[2016-11-18 07:57] LABS: FREE T4 0.91 NG/DL (0.76-1.46)
[2016-11-18] MEDS: CETIRIZINE (ZyrTEC) 10 MG TAB PO SCH (09:11)
[2016-11-18] MEDS: VENLAFAXINE **XR** 37.5 MG CAPSULE PO SCH (09:11)
[2016-11-18] MEDS: LISINOPRIL 20 MG TAB PO SCH (09:11)
[2016-11-18] MEDS: VENLAFAXINE **XR** 75MG CAPSULE PO SCH (09:11)
[2016-11-18] MEDS: FLUTICASONE PROP 0.05% NASAL SPRAY 16 GM (FLONASE) SCH (09:12)
[2016-11-18] MEDS: ARNUITY ELLIPTA 100 MCG INH SCH (09:12)
[2016-11-18 12:01] LABS: CONTROL LINE HCG INT CTR LINE PRESENT
--- NOTE | 2016-11-18 14:04 | IPNPDOC ---
[facility] Progress Note Progress Note DATE OF SERVICE: 11/18/16 HISTORY: Patient is a 56-year-old, , mother of 4 adult children, who states it was recommended to her by [facility] to come to [facility] for evaluation adding she decided to self present for evaluation after walking into traffic not caring if struck by traffic. Patient has history of suicide attempt via overdose on pills, reports history of med noncompliance, current notable financial strain and frustration with the [employer] application system. Patient is observed to be lying in bed between groups, is easily roused and sits up to meet with mortgage loan underwriter for assessment purposes. A short reports anxiety level 5/10, depression level 3/10, denies suicidal and homicidal ideation, denies audiovisual hallucinations, denies urge to engage in self-injurious behavior. Patient indicates she has been attending groups and reports some improvement to her sleep, though notes she had one nightmare last night. Patient reports reduced energy level, challenges with concentration and focus, indicates her appetite is stabilizing. Patient took first dose of reduced Effexor XR this morning, indicates she is experiencing sedation, notes she is not sure if his medication side effect or the result of fatigue related to poor sleep prior to hospitalization. Patient reports reduced symptoms of impulsivity, denies anger and agitation, indicates she feels her mood is "leveling out." Patient denies physical pain and presents with no signs of acute distress at time of interaction. VITAL SIGNS: See below. NEW TEST RESULTS: Lab work on admission indicated low anion gap and elevated TSH. TSH recheck within normal limits. PAST MEDICAL/SURGICAL HISTORY: Asthma, hypertension, GERD, chronic pain, appendectomy, cholecystectomy, hysterectomy. Patient denies history of seizure disorder or head injury Patient indicates she has plantar warts on feet and heels which cause her pain when walking, is requesting order for shoes without laces. UDS negative om admission HCG negative on admission EKG pending CURRENT MEDICATIONS: See below. MENTAL STATUS EXAMINATION: Patient is 56-year-old female who is pleasant and cooperative, is disheveled, dressed in hospital clothing, makes fair eye contact , ambulates with steady gait, appears stated age. Speech: Is of normal rate, rhythm, volume, coherent, spontaneous. Language skills are intact. Thought processes: Clear, goal-directed. Thought content: Rational, logical. Abstract reasoning: Appears intact. Description of associations: Intact. Description of abnormal or psychotic thoughts: denies hallucinations, delusions , preoccupation with violence, homicidal or suicidal ideation, and obsessions]. Judgment: Poor. Insight: Poor. Orientation to time, place and person. Recent and remote memory: Appears intact Attention span and concentration: Within normal limits. Language: Normal. Fund of knowledge: Adequate. Mood: "Tired, but I feel little better today." Patient appears depressed and anxious, no mood lability noted Affect: Blunted, congruent with affect. DIAGNOSES: Unspecified mood disorder, rule out MDD, rule out PTSD, rule out bipolar disorder, rule out seasonal affective disorder ASSESSMENT: Patient appears to be slowly adjusting to unit, remains isolative between groups but has begun attending some groups, is engageable. Patient reports some improvement to symptoms of anxiety and depression, notes she believes dose reduction to Effexor is agreeable, notes she is experiencing some symptoms of sedation but adds symptoms are milder been at 225 mg dose. Patient states trazodone continues to be generally effective, indicates she experience nightmare 1 last night, denied difficulty resuming sleep, felt need to utilize PRN hydroxyzine last evening to address symptoms of anxiety. Patient denies current suicidal and homicidal ideation and verbalizes awareness of how to access supportive services on the unit if needed. Patient indicates her discharge plan remains to return home to her apartment, but today states she is unsure of long-term housing plan, remains concerned about financial situation as related to her DSS benefits. Will continue to monitor patient's response to medications, medication side effects, and will evaluate resolution of suicidal ideation, patient safety, and discharge readiness. MANAGEMENT PLAN: Continue Effexor XR 187.5 mg po q am, trazodone 100 mg po hs PRN insomnia, and hydroxyzine 25 mg po q 6 hours PEN anxiety. Maintain safety precautions Patient to attend groups and participate in unit programming to develop coping strategies Engage patient in discharge planning process and arrange meeting with support system to ensure safe discharge planning when appropriate Patient to follow up with PCM upon discharge TIME SPENT: 35 minutes. Vital Signs Vital Signs Date Time Temp Pulse Resp B/P Pulse Ox O2 Delivery O2 Flow Rate FiO2 11/18/16 09:11 131/75 11/18/16 06:37 97.1 71 18 11/17/16 08:22 Room Air 11/16/16 21:55 96 Laboratory Data 24H Labs Laboratory Tests 2 11/18/16 07:08: Free Thyroxine 0.91, Human Chorionic Gonadotropin, Qual NEGATIVE, Thyroid Stimulating Hormone (TSH) 1.860 Current Medications Current Medications Acetaminophen (Tylenol Tab) 650 mg Q6HP PRN PO HEADACHE or DISCOMFORT; Start at 00:00; Stop 12/17/16 at 00:00 Al Hydrox/Mg Hydrox/Simethicone (Mylanta) 30 ml Q4HP PRN PO HEARTBURN/ INDIGESTION; Start 11/17/16 at 00:00; Stop 12/17/16 at 00:00 Albuterol Sulfate (Proventil Neb) 2.5 mg Q2HP PRN NEB SOB/WHEEZING Last administered on 11/17/16 22:40; Start 11/17/16 at 12:00; Stop 12/17/16 at 11:59 Albuterol Sulfate (Proventil Neb) 2.5 mg RQ6H PRN NEB SHORTNESS OF BREATH Last administered on 11/17/16 09:29; Start 11/17/16 at 00:00; Stop 11/17/16 at 11:56; Status DC Albuterol Sulfate (Proventil, Ventolin Hfa) 2 puff Q4HP PRN INH SHORTNESS OF BREATH Last administered on 11/18/16 11:34; Start 11/17/16 at 12:00; Stop at 11:59 Albuterol Sulfate (Proventil, Ventolin Hfa) 2 puff QID PRN INH SHORTNESS OF BREATH Last administered on 11/17/16 06:23; Start 11/17/16 at 00:00; Stop at 11:51; Status DC Cetirizine HCl (ZyrTEC) 10 mg DAILY PO Last administered on 11/18/16 09:11; Start 11/17/16 at 09:00; Stop 12/17/16 at 08:59 Cetylpyridinium Chloride (Cepacol) 1 alan Q2HP PRN PO COUGH Last administered on 11/18/16 11:33; Start 11/17/16 at 18:45; Stop 12/17/16 at 18:44 Docusate Sodium (Colace) 200 mg QHS PO Last administered on 11/17/16 20:15; Start 11/16/16 at 21:00; Stop 12/16/16 at 20:59 Fluticasone Propionate (Flonase 0.05% Nasal [place]) 2 spray DAILY NA Last administered on 11/18/16 09:12; Start 11/17/16 at 09:00; Stop 12/17/16 at 08:59 Home Med (Med Rec Complete!) ASDIRECTED XX ; Start 11/16/16 at 18:30; Stop at 18:30; Status DC Hydroxyzine HCl (Atarax) 25 mg Q6HP PRN PO ANXIETY Last administered on 22:10; Start 11/17/16 at 00:00; Stop 12/17/16 at 00:00 Lisinopril (Prinivil) 20 mg DAILY PO Last administered on 11/18/16 09:11; Start 11/17/16 at 09:00; Stop 12/17/16 at 08:59 Magnesium Hydroxide (Milk Of Magnesia) 30 ml DAILYPRN PRN PO CONSTIPATION; Start 11/17/16 at 00:00; Stop 12/17/16 at 00:00 Montelukast Sodium (Singulair) 10 mg QHS PO Last administered on 11/17/16 20:15 ; Start 11/16/16 at 21:00; Stop 12/16/16 at 20:59 Omeprazole (PriLOSEC) 40 mg QHS PO Last administered on 11/17/16 20:15; Start 11/16/16 at 21:00; Stop 12/16/16 at 20:59 Patient Own Medication (Patient'S Own Med) ARNUITY ELLIPTA 100... DAILY INH Last administered on 11/18/16 09:12; Start 11/17/16 at 09:00; Stop 12/17/16 at 08: 59 Tramadol HCl (Ultram) 50 mg Q6HP PRN PO PAIN Last administered on 11/17/16 22: 10; Start 11/17/16 at 00:00; Stop 11/24/16 at 00:00 Trazodone HCl (Desyrel) 100 mg QHSP PRN PO INSOMNIA Last administered on 23:00; Start 11/17/16 at 00:00; Stop 12/17/16 at 00:00 Venlafaxine HCl (Effexor Xr) 37.5 mg DAILY PO Last administered on 09:11; Start 11/18/16 at 09:00; Stop 12/18/16 at 08:59 Venlafaxine HCl (Effexor Xr) 150 mg DAILY PO Last administered on 11/18/16 09:11; Start 11/18/16 at 09:00; Stop 12/18/16 at 08:59 Venlafaxine HCl (Effexor Xr) 225 mg DAILY PO Last administered on 11/17/16 09:08; Start 11/17/16 at 09:00; Stop 11/17/16 at 18:19; Status DC Allergies Coded Allergies: Aspirin (Unverified Allergy, Unknown, 12/19/12) Ibuprofen (Unverified Allergy, Unknown, 12/19/12) NSAIDs (Unverified Allergy, Unknown, 11/16/16) Leia Vu Nov 18, 2016 14:04 evaluation after she reportedly stepped into traffic as a means to commit suicide. Patient appears to be adjusting to unit, has been sleeping for part of the day, has been visible on unit at other times, is cooperative with staff. Patient indicates she is attempting to grapple with multiple social stressors, also reports history of medication noncompliance due to feeling overmedicated via Effexor XR at currently prescribed dose of 225 mg, is requesting to trial medication at a lower dose. Patient indicates medication regimen is otherwise effective and she denies medication side effects. Patient denies suicidal and homicidal thinking and is able to verbalize awareness of how to access supportive services on the unit if needed. Will make dosing adjustments to patient's medication regimen and will monitor for medication side effects, will also evaluate for resolution of suicidal ideation and discharge readiness. Patient indicates at time of discharge she plans to discharge back to her apartment, states she has concerns about being able to pay rent and that's why she was at [facility]. Patient is aware that social media manager is available to attempt to assist patient should patient desire supportive assistance. PROBLEM LIST: Suicide attempts Depression Anxiety Poor impulse control Ineffective coping Medication noncompliance Limited support system Financial strain Unstable housing Vital Signs Vital Signs Date Time Temp Pulse Resp B/P Pulse Ox O2 Delivery O2 Flow Rate FiO2 11/18/16 09:11 131/75 11/18/16 06:37 97.1 71 18 11/17/16 08:22 Room Air 11/16/16 21:55 96 Laboratory Data 24H Labs Laboratory Tests 2 11/18/16 07:08: Free Thyroxine 0.91, Human Chorionic Gonadotropin, Qual NEGATIVE, Thyroid Stimulating Hormone (TSH) 1.860 Current Medications Current Medications Acetaminophen (Tylenol Tab) 650 mg Q6HP PRN PO HEADACHE or DISCOMFORT; Start at 00:00; Stop 12/17/16 at 00:00 Al Hydrox/Mg Hydrox/Simethicone (Mylanta) 30 ml Q4HP PRN PO HEARTBURN/ INDIGESTION; Start 11/17/16 at 00:00; Stop 12/17/16 at 00:00 Albuterol Sulfate (Proventil Neb) 2.5 mg Q2HP PRN NEB SOB/WHEEZING Last administered on 11/17/16 22:40; Start 11/17/16 at 12:00; Stop 12/17/16 at 11:59 Albuterol Sulfate (Proventil Neb) 2.5 mg RQ6H PRN NEB SHORTNESS OF BREATH Last administered on 11/17/16 09:29; Start 11/17/16 at 00:00; Stop 11/17/16 at 11:56; Status DC Albuterol Sulfate (Proventil, Ventolin Hfa) 2 puff Q4HP PRN INH SHORTNESS OF BREATH Last administered on 11/18/16 11:34; Start 11/17/16 at 12:00; Stop at 11:59 Albuterol Sulfate (Proventil, Ventolin Hfa) 2 puff QID PRN INH SHORTNESS OF BREATH Last administered on 11/17/16 06:23; Start 11/17/16 at 00:00; Stop at 11:51; Status DC Cetirizine HCl (ZyrTEC) 10 mg DAILY PO Last administered on 11/18/16 09:11; Start 11/17/16 at 09:00; Stop 12/17/16 at 08:59 Cetylpyridinium Chloride (Cepacol) 1 alan Q2HP PRN PO COUGH Last administered on 11/18/16 11:33; Start 11/17/16 at 18:45; Stop 12/17/16 at 18:44 Docusate Sodium (Colace) 200 mg QHS PO Last administered on 11/17/16 20:15; Start 11/16/16 at 21:00; Stop 12/16/16 at 20:59 Fluticasone Propionate (Flonase 0.05% Nasal [place]) 2 spray DAILY NA Last administered on 11/18/16 09:12; Start 11/17/16 at 09:00; Stop 12/17/16 at 08:59 Home Med (Med Rec Complete!) ASDIRECTED XX ; Start 11/16/16 at 18:30; Stop at 18:30; Status DC Hydroxyzine HCl (Atarax) 25 mg Q6HP PRN PO ANXIETY Last administered on 22:10; Start 11/17/16 at 00:00; Stop 12/17/16 at 00:00 Lisinopril (Prinivil) 20 mg DAILY PO Last administered on 11/18/16 09:11; Start 11/17/16 at 09:00; Stop 12/17/16 at 08:59 Magnesium Hydroxide (Milk Of Magnesia) 30 ml DAILYPRN PRN PO CONSTIPATION; Start 11/17/16 at 00:00; Stop 12/17/16 at 00:00 Montelukast Sodium (Singulair) 10 mg QHS PO Last administered on 11/17/16 20:15 ; Start 11/16/16 at 21:00; Stop 12/16/16 at 20:59 Omeprazole (PriLOSEC) 40 mg QHS PO Last administered on 11/17/16 20:15; Start 11/16/16 at 21:00; Stop 12/16/16 at 20:59 Patient Own Medication (Patient'S Own Med) ARNUITY ELLIPTA 100... DAILY INH Last administered on 11/18/16 09:12; Start 11/17/16 at 09:00; Stop 12/17/16 at 08: 59 Tramadol HCl (Ultram) 50 mg Q6HP PRN PO PAIN Last administered on 11/17/16 22: 10; Start 11/17/16 at 00:00; Stop 11/24/16 at 00:00 Trazodone HCl (Desyrel) 100 mg QHSP PRN PO INSOMNIA Last administered on 23:00; Start 11/17/16 at 00:00; Stop 12/17/16 at 00:00 Venlafaxine HCl (Effexor Xr) 37.5 mg DAILY PO Last administered on 09:11; Start 11/18/16 at 09:00; Stop 12/18/16 at 08:59 Venlafaxine HCl (Effexor Xr) 150 mg DAILY PO Last administered on 11/18/16 09:11; Start 11/18/16 at 09:00; Stop 12/18/16 at 08:59 Venlafaxine HCl (Effexor Xr) 225 mg DAILY PO Last administered on 11/17/16 09:08; Start 11/17/16 at 09:00; Stop 11/17/16 at 18:19; Status DC Allergies Coded Allergies: Aspirin (Unverified Allergy, Unknown, 12/19/12) Ibuprofen (Unverified Allergy, Unknown, 12/19/12) NSAIDs (Unverified Allergy, Unknown, 11/16/16) Leia Vu Nov 18, 2016 14:04
[2016-11-18] MEDS: traMADol 50 MG TAB PO PRN (16:42)
[2016-11-18 18:00] VITALS: BP 145/71
[2016-11-18] MEDS: OMEPRAZOLE 20 MG CAP PO SCH (21:36)
[2016-11-18] MEDS: traZODone 100 MG TAB PO PRN (21:36)
[2016-11-18] MEDS: DOCUSATE SODIUM 100 MG CAP PO SCH (21:36)
[2016-11-18] MEDS: MONTELUKAST 10 MG TAB PO SCH (21:36)
[2016-11-19] MEDS: hydrOXYzine 25 MG TAB PO PRN ×2 (03:37→23:10)
[2016-11-19 06:56] VITALS: BP 111/52
[2016-11-19] MEDS: ALBUTEROL 90 MCG/ACT 8GM HFA INHALER INH PRN ×3 (07:13→19:03)
[2016-11-19] MEDS: FLUTICASONE PROP 0.05% NASAL SPRAY 16 GM (FLONASE) SCH (08:52)
[2016-11-19] MEDS: VENLAFAXINE **XR** 75MG CAPSULE PO SCH (08:53)
[2016-11-19] MEDS: ARNUITY ELLIPTA 100 MCG INH SCH (08:53)
[2016-11-19] MEDS: LISINOPRIL 20 MG TAB PO SCH (08:53)
[2016-11-19] MEDS: VENLAFAXINE **XR** 37.5 MG CAPSULE PO SCH (08:53)
[2016-11-19] MEDS: CETIRIZINE (ZyrTEC) 10 MG TAB PO SCH (08:53)
[2016-11-19] MEDS: traMADol 50 MG TAB PO PRN ×2 (10:28→17:22)
--- NOTE | 2016-11-19 14:09 | IPNPDOC ---
[facility] Progress Note Progress Note DATE OF SERVICE: 11/19/16 HISTORY: Patient is a 56-year-old, , mother of 4 adult children, who states it was recommended to her by [facility] to come to [facility] for evaluation adding she decided to self present for evaluation after walking into traffic not caring if struck by traffic. Patient has history of suicide attempt via overdose on pills, reports history of med noncompliance, current notable financial strain and frustration with the [employer] application system. Patient is observed to be lying in bed between groups, readily sits up to engage with specifications writer for assessment purposes. Patient reports 1/10 anxiety, 2/10 depression, denies suicidal and homicidal ideation, denies audiovisual hallucinations, denies urge to engage in self-injurious behavior. Patient reports improvement to mood noting she is experiencing "a little sometimes irritability," denies anger, agitation, impulsivity, and mood lability. Patient indicates she has been attending most groups and reports sleep is improved with exception of middle of the night move-in of roommate, notes she was able to resume sleep and denies nightmares symptoms. Patient reports reduced energy level, challenges with concentration and focus, indicates her appetite is stabilizing. Patient took second dose of reduced Effexor XR this morning, today denies experiencing sedation, indicates she feels dose is effective and she denies medication side effects. Patient denies physical pain and presents with no signs of acute distress at time of interaction. VITAL SIGNS: See below. NEW TEST RESULTS: Lab work on admission indicated low anion gap and elevated TSH. TSH recheck within normal limits. PAST MEDICAL/SURGICAL HISTORY: Asthma, hypertension, GERD, chronic pain, appendectomy, cholecystectomy, hysterectomy. Patient denies history of seizure disorder or head injury Patient indicates she has plantar warts on feet and heels which cause her pain when walking, is requesting order for shoes without laces. UDS negative om admission HCG negative on admission EKG pending CURRENT MEDICATIONS: See below. MENTAL STATUS EXAMINATION: Patient is 56-year-old female who is pleasant and cooperative, is disheveled, dressed in hospital clothing, makes fair eye contact , ambulates with steady gait, appears stated age. Speech: Is of normal rate, rhythm, volume, coherent, spontaneous. Language skills are intact. Thought processes: Clear, goal-directed. Thought content: Rational, logical. Abstract reasoning: Appears intact. Description of associations: Intact. Description of abnormal or psychotic thoughts: denies hallucinations, delusions , preoccupation with violence, homicidal or suicidal ideation, and obsessions]. Judgment: Poor, some improvement Insight: Poor, some improvement Orientation to time, place and person. Recent and remote memory: Appears intact Attention span and concentration: Within normal limits. Language: Normal. Fund of knowledge: Adequate. Mood: "I think maybe the medication might be starting to help." Patient appears depressed and anxious, no mood lability noted Affect: Blunted, congruent with affect. DIAGNOSES: Unspecified mood disorder, rule out MDD, rule out PTSD, rule out bipolar disorder, rule out seasonal affective disorder ASSESSMENT: Patient continues to adjust to unit, is attending groups, is isolative to room at times and is visible on unit at times, is engageable with no behavioral management challenges. Patient reports some improvement to symptoms of anxiety and depression, notes she believes dose reduction to Effexor is helpful, today denies medication side effects. Patient states trazodone continues to be generally effective, continues to use PRN hydroxyzine for symptoms of anxiety with good effect reported. Patient denies current suicidal and homicidal ideation and verbalizes awareness of how to access supportive services on the unit if needed. Patient indicates her discharge plan remains to return home to her apartment, remains uncertain about stability of housing, and remains concerned about financial situation as related to her DSS benefits. Will continue to monitor patient's response to medications, medication side effects, and will evaluate resolution of suicidal ideation, patient safety, and discharge readiness. MANAGEMENT PLAN: Continue Effexor XR 187.5 mg po q am, trazodone 100 mg po hs PRN insomnia, and hydroxyzine 25 mg po q 6 hours PEN anxiety. Maintain safety precautions Patient to attend groups and participate in unit programming to develop coping strategies Engage patient in discharge planning process and arrange meeting with support system to ensure safe discharge planning when appropriate Patient to follow up with PCM upon discharge TIME SPENT: 25 minutes. Vital Signs Vital Signs Date Time Temp Pulse Resp B/P Pulse Ox O2 Delivery O2 Flow Rate FiO2 11/19/16 11:16 18 11/19/16 08:53 124/73 11/19/16 06:56 97.6 62 11/18/16 16:42 Room Air 11/16/16 21:55 96 Current Medications Current Medications Acetaminophen (Tylenol Tab) 650 mg Q6HP PRN PO HEADACHE or DISCOMFORT; Start at 00:00; Stop 12/17/16 at 00:00 Al Hydrox/Mg Hydrox/Simethicone (Mylanta) 30 ml Q4HP PRN PO HEARTBURN/ INDIGESTION; Start 11/17/16 at 00:00; Stop 12/17/16 at 00:00 Albuterol Sulfate (Proventil Neb) 2.5 mg Q2HP PRN NEB SOB/WHEEZING Last administered on 11/17/16 22:40; Start 11/17/16 at 12:00; Stop 12/17/16 at 11:59 Albuterol Sulfate (Proventil Neb) 2.5 mg RQ6H PRN NEB SHORTNESS OF BREATH Last administered on 11/17/16 09:29; Start 11/17/16 at 00:00; Stop 11/17/16 at 11:56; Status DC Albuterol Sulfate (Proventil, Ventolin Hfa) 2 puff Q4HP PRN INH SHORTNESS OF BREATH Last administered on 11/19/16 11:15; Start 11/17/16 at 12:00; Stop at 11:59 Albuterol Sulfate (Proventil, Ventolin Hfa) 2 puff QID PRN INH SHORTNESS OF BREATH Last administered on 11/17/16 06:23; Start 11/17/16 at 00:00; Stop at 11:51; Status DC Cetirizine HCl (ZyrTEC) 10 mg DAILY PO Last administered on 11/19/16 08:53; Start 11/17/16 at 09:00; Stop 12/17/16 at 08:59 Cetylpyridinium Chloride (Cepacol) 1 alan Q2HP PRN PO COUGH Last administered on 11/18/16 11:33; Start 11/17/16 at 18:45; Stop 12/17/16 at 18:44 Docusate Sodium (Colace) 200 mg QHS PO Last administered on 11/18/16 21:36; Start 11/16/16 at 21:00; Stop 12/16/16 at 20:59 Fluticasone Propionate (Flonase 0.05% Nasal [place]) 2 spray DAILY NA Last administered on 11/19/16 08:52; Start 11/17/16 at 09:00; Stop 12/17/16 at 08:59 Home Med (Med Rec Complete!) ASDIRECTED XX ; Start 11/16/16 at 18:30; Stop at 18:30; Status DC Hydroxyzine HCl (Atarax) 25 mg Q6HP PRN PO ANXIETY Last administered on 03:37; Start 11/17/16 at 00:00; Stop 12/17/16 at 00:00 Lisinopril (Prinivil) 20 mg DAILY PO Last administered on 11/19/16 08:53; Start 11/17/16 at 09:00; Stop 12/17/16 at 08:59 Magnesium Hydroxide (Milk Of Magnesia) 30 ml DAILYPRN PRN PO CONSTIPATION; Start 11/17/16 at 00:00; Stop 12/17/16 at 00:00 Montelukast Sodium (Singulair) 10 mg QHS PO Last administered on 11/18/16 21:36 ; Start 11/16/16 at 21:00; Stop 12/16/16 at 20:59 Omeprazole (PriLOSEC) 40 mg QHS PO Last administered on 11/18/16 21:36; Start 11/16/16 at 21:00; Stop 12/16/16 at 20:59 Patient Own Medication (Patient'S Own Med) ARNUITY ELLIPTA 100... DAILY INH Last administered on 11/19/16 08:53; Start 11/17/16 at 09:00; Stop 12/17/16 at 08 :59 Tramadol HCl (Ultram) 50 mg Q6HP PRN PO PAIN Last administered on 11/19/16 10: 28; Start 11/17/16 at 00:00; Stop 11/24/16 at 00:00 Trazodone HCl (Desyrel) 100 mg QHSP PRN PO INSOMNIA Last administered on 21:36; Start 11/17/16 at 00:00; Stop 12/17/16 at 00:00 Venlafaxine HCl (Effexor Xr) 37.5 mg DAILY PO Last administered on 08:53; Start 11/18/16 at 09:00; Stop 12/18/16 at 08:59 Venlafaxine HCl (Effexor Xr) 150 mg DAILY PO Last administered on 08:53; Start 11/18/16 at 09:00; Stop 12/18/16 at 08:59 Venlafaxine HCl (Effexor Xr) 225 mg DAILY PO Last administered on 11/17/16 09:08; Start 11/17/16 at 09:00; Stop 11/17/16 at 18:19; Status DC Allergies Coded Allergies: Aspirin (Unverified Allergy, Unknown, 12/19/12) Ibuprofen (Unverified Allergy, Unknown, 12/19/12) NSAIDs (Unverified Allergy, Unknown, 11/16/16) Leia Vu Nov 19, 2016 14:09
[2016-11-19 18:00] VITALS: BP 113/70
[2016-11-19] MEDS: DOCUSATE SODIUM 100 MG CAP PO SCH (20:24)
[2016-11-19] MEDS: MONTELUKAST 10 MG TAB PO SCH (20:24)
[2016-11-19] MEDS: OMEPRAZOLE 20 MG CAP PO SCH (20:24)
[2016-11-19] MEDS: ACETAMINOPHEN TAB 650MG DOSE (2X325MG) PO PRN (20:25)
[2016-11-19] MEDS: traZODone 100 MG TAB PO PRN (22:24)
[2016-11-20 07:12] VITALS: BP 127/76
[2016-11-20] MEDS: ALBUTEROL 90 MCG/ACT 8GM HFA INHALER INH PRN ×2 (08:42→18:13)
[2016-11-20] MEDS: FLUTICASONE PROP 0.05% NASAL SPRAY 16 GM (FLONASE) SCH (08:42)
[2016-11-20] MEDS: VENLAFAXINE **XR** 75MG CAPSULE PO SCH (08:42)
[2016-11-20] MEDS: ARNUITY ELLIPTA 100 MCG INH SCH (08:42)
[2016-11-20] MEDS: CETIRIZINE (ZyrTEC) 10 MG TAB PO SCH (08:42)
[2016-11-20] MEDS: VENLAFAXINE **XR** 37.5 MG CAPSULE PO SCH (08:43)
[2016-11-20] MEDS: LISINOPRIL 20 MG TAB PO SCH (08:45)
[2016-11-20] MEDS: traMADol 50 MG TAB PO PRN ×2 (08:47→15:37)
[2016-11-20] MEDS: ALBUTEROL SULFATE 2.5 MG/0.5 ML INH NEB SOLN NEB PRN ×2 (12:39→22:46)
[2016-11-20 18:00] VITALS: BP 113/68
[2016-11-20] MEDS: hydrOXYzine 25 MG TAB PO PRN (22:55)
[2016-11-20] MEDS: OMEPRAZOLE 20 MG CAP PO SCH (22:56)
[2016-11-20] MEDS: DOCUSATE SODIUM 100 MG CAP PO SCH (22:56)
[2016-11-20] MEDS: MONTELUKAST 10 MG TAB PO SCH (22:56)
[2016-11-20] MEDS: traZODone 100 MG TAB PO PRN (22:56)
[2016-11-21 07:43] VITALS: BP 110/58
[2016-11-21 08:11] VITALS: BP 121/69
[2016-11-21] MEDS: FLUTICASONE PROP 0.05% NASAL SPRAY 16 GM (FLONASE) SCH (08:13)
[2016-11-21] MEDS: ARNUITY ELLIPTA 100 MCG INH SCH (08:13)
[2016-11-21] MEDS: ALBUTEROL 90 MCG/ACT 8GM HFA INHALER INH PRN ×3 (08:14→20:31)
[2016-11-21] MEDS: CETIRIZINE (ZyrTEC) 10 MG TAB PO SCH (08:14)
[2016-11-21] MEDS: VENLAFAXINE **XR** 37.5 MG CAPSULE PO SCH (08:14)
[2016-11-21] MEDS: LISINOPRIL 20 MG TAB PO SCH (08:14)
[2016-11-21] MEDS: VENLAFAXINE **XR** 75MG CAPSULE PO SCH (08:14)
[2016-11-21] MEDS: traMADol 50 MG TAB PO PRN ×2 (12:20→18:43)
[2016-11-21 18:00] VITALS: BP 136/77
[2016-11-21] MEDS: MONTELUKAST 10 MG TAB PO SCH (20:31)
[2016-11-21] MEDS: DOCUSATE SODIUM 100 MG CAP PO SCH (20:31)
[2016-11-21] MEDS: OMEPRAZOLE 20 MG CAP PO SCH (20:31)
[2016-11-21] MEDS: traZODone 100 MG TAB PO PRN (22:49)
[2016-11-21] MEDS: hydrOXYzine 25 MG TAB PO PRN (22:49)
[2016-11-22 06:17] VITALS: BP 120/60
[2016-11-22] MEDS: ALBUTEROL 90 MCG/ACT 8GM HFA INHALER INH PRN ×3 (07:41→21:46)
[2016-11-22] MEDS: FLUTICASONE PROP 0.05% NASAL SPRAY 16 GM (FLONASE) SCH (08:29)
[2016-11-22] MEDS: LISINOPRIL 20 MG TAB PO SCH (08:30)
[2016-11-22] MEDS: CETIRIZINE (ZyrTEC) 10 MG TAB PO SCH (08:30)
[2016-11-22] MEDS: VENLAFAXINE **XR** 37.5 MG CAPSULE PO SCH (08:30)
[2016-11-22] MEDS: VENLAFAXINE **XR** 75MG CAPSULE PO SCH (08:30)
[2016-11-22] MEDS: ARNUITY ELLIPTA 100 MCG INH SCH (08:30)
[2016-11-22] MEDS: traMADol 50 MG TAB PO PRN ×2 (09:30→16:07)
[2016-11-22] MEDS: ALBUTEROL SULFATE 2.5 MG/0.5 ML INH NEB SOLN NEB PRN (10:42)
--- NOTE | 2016-11-22 16:23 | IPNPDOC ---
[facility] Progress Note Progress Note DATE OF SERVICE: 11/22/16 HISTORY: Patient is a 56-year-old, , mother of 4 adult children, who states it was recommended to her by [facility] to come to [facility] for evaluation adding she decided to self present for evaluation after walking into traffic not caring if struck by traffic which occurred after patient became frustrated at [facility]. Patient has history of suicide attempt via overdose on pills, reports history of med noncompliance, current notable financial strain and frustration with the [facility] application system. Patient is observed to be lying in bed between groups, readily sits up to engage with food writer for assessment purposes. Patient reports 3/10 anxiety, 0/10 depression, denies suicidal and homicidal ideation, denies audiovisual hallucinations, denies urge to engage in self-injurious behavior. Patient reports improvement to mood and symptoms of depression, indicates current Effexor XR dose is helpful and she denies medication side effects. Patient has been utilizing PRN hydroxyzine roughly 1 time per day to address intermittent symptoms of anxiety with good effect reported. Patient denies experiencing symptoms of irritability, anger, agitation, impulsivity, and mood lability. Patient indicates she has been attending most groups and reports sleep is improved, denies nightmares symptoms. Patient reports improved energy level, challenges with concentration and focus, indicates her appetite is stabilizing. Patient continues to express concerns related to her ability to cope with DSS and her impending housing crisis, neonatal social worker has agreed to work with patient on this today. Patient reports 4/10 pain level, presents with no signs of acute distress at time of interaction. Addendum: corrections caseworker made calls to [facility] and patient's landlord with patient. [facility] indicated that patient's application should be approved and provided patient with timeframe for approval. Patient's landlord has agreed to wait for [facility] approval for rent and has allowed patient to remain in current housing until [facility] rent reimbursement is received. In light of resolution of housing crisis, patient reported reduction in symptoms of anxiety and depression and stated she feels prepared for discharge tomorrow, adds she feels she has developed new coping mechanisms which will help her deal with DSS until her public assistance is in place. VITAL SIGNS: See below. NEW TEST RESULTS: Lab work on admission indicated low anion gap and elevated TSH. TSH recheck within normal limits. PAST MEDICAL/SURGICAL HISTORY: Asthma, hypertension, GERD, chronic pain, appendectomy, cholecystectomy, hysterectomy. Patient denies history of seizure disorder or head injury Patient indicates she has plantar warts on feet and heels which cause her pain when walking, is requesting order for shoes without laces. UDS negative om admission HCG negative on admission 09/19/16 EKG SINUS RHYTHM POSSIBLE LAE PRIOR INFERIOR INFARCT NO PRIORS. PA is aware and has recommended follow-up outpatient. Patient is asymptomatic. CURRENT MEDICATIONS: See below. MENTAL STATUS EXAMINATION: Patient is 56-year-old female who is pleasant and cooperative, presents with adequate hygiene, is dressed in hospital clothing, makes good eye contact, ambulates with steady gait, appears stated age. Speech: Is of normal rate, rhythm, volume, coherent, spontaneous. Language skills are intact. Thought processes: Clear, goal-directed. Thought content: Rational, logical. Abstract reasoning: Appears intact. Description of associations: Intact. Description of abnormal or psychotic thoughts: denies hallucinations, delusions , preoccupation with violence, homicidal or suicidal ideation, and obsessions]. Judgment: Fair, continues to improve Insight: Fair, some improvement Orientation to person, place, time, situation Recent and remote memory: Appears intact Attention span and concentration: Within normal limits. Language: Normal. Fund of knowledge: Adequate. Mood: "The medications are definitely helping and I'm feeling better." Patient appears less depressed and anxious, no mood lability noted Affect: Constricted, brightens at times, congruent with affect. DIAGNOSES: Unspecified mood disorder, rule out MDD, rule out PTSD, rule out bipolar disorder, rule out seasonal affective disorder ASSESSMENT: Patient continues to adjust to unit, is attending groups, is isolative to room at times and is visible on unit at other times, is engageable with no behavioral management challenges. Patient reports continued improvement to symptoms of anxiety and depression, notes she believes current dosing of Effexor XR is helpful and patient denies medication side effects. Patient states trazodone continues to be effective, continues to use PRN hydroxyzine for symptoms of anxiety with good effect reported. Patient denies current suicidal and homicidal ideation and verbalizes awareness of how to access supportive services on the unit if needed. Patient indicates her discharge plan remains to return home to her apartment, remains uncertain about stability of housing, and remains concerned about financial situation as related to her DSS benefits. Will continue to monitor patient's response to medications, medication side effects, and will evaluate resolution of suicidal ideation, patient safety, and discharge readiness. MANAGEMENT PLAN: Continue Effexor XR 187.5 mg po q am, trazodone 100 mg po hs PRN insomnia, and hydroxyzine 25 mg po q 6 hours PRN anxiety. Maintain safety precautions Patient to attend groups and participate in unit programming to develop coping strategies Engage patient in discharge planning process and arrange meeting with support system to ensure safe discharge planning when appropriate Patient to follow up with PCM upon discharge TIME SPENT: 25 minutes. Vital Signs Vital Signs Date Time Temp Pulse Resp B/P Pulse Ox O2 Delivery O2 Flow Rate FiO2 11/22/16 16:07 18 11/22/16 08:30 120/60 11/22/16 06:17 96.0 67 11/18/16 16:42 Room Air 11/16/16 21:55 96 Current Medications Current Medications Acetaminophen (Tylenol Tab) 650 mg Q6HP PRN PO HEADACHE or DISCOMFORT Last administered on 11/19/16 20:25; Start 11/17/16 at 00:00; Stop 12/17/16 at 00:00 Al Hydrox/Mg Hydrox/Simethicone (Mylanta) 30 ml Q4HP PRN PO HEARTBURN/ INDIGESTION; Start 11/17/16 at 00:00; Stop 12/17/16 at 00:00 Albuterol Sulfate (Proventil Neb) 2.5 mg Q2HP PRN NEB SOB/WHEEZING Last administered on 11/22/16 10:42; Start 11/17/16 at 12:00; Stop 12/17/16 at 11:59 Albuterol Sulfate (Proventil Neb) 2.5 mg RQ6H PRN NEB SHORTNESS OF BREATH Last administered on 11/17/16 09:29; Start 11/17/16 at 00:00; Stop 11/17/16 at 11:56; Status DC Albuterol Sulfate (Proventil, Ventolin Hfa) 2 puff Q4HP PRN INH SHORTNESS OF BREATH Last administered on 11/22/16 16:07; Start 11/17/16 at 12:00; Stop at 11:59 Albuterol Sulfate (Proventil, Ventolin Hfa) 2 puff QID PRN INH SHORTNESS OF BREATH Last administered on 11/17/16 06:23; Start 11/17/16 at 00:00; Stop at 11:51; Status DC Cetirizine HCl (ZyrTEC) 10 mg DAILY PO Last administered on 11/22/16 08:30; Start 11/17/16 at 09:00; Stop 12/17/16 at 08:59 Cetylpyridinium Chloride (Cepacol) 1 alan Q2HP PRN PO COUGH Last administered on 11/18/16 11:33; Start 11/17/16 at 18:45; Stop 12/17/16 at 18:44 Docusate Sodium (Colace) 200 mg QHS PO Last administered on 11/21/16 20:31; Start 11/16/16 at 21:00; Stop 12/16/16 at 20:59 Fluticasone Propionate (Flonase 0.05% Nasal [place]) 2 spray DAILY NA Last administered on 11/22/16 08:29; Start 11/17/16 at 09:00; Stop 12/17/16 at 08:59 Home Med (Med Rec Complete!) ASDIRECTED XX ; Start 11/16/16 at 18:30; Stop at 18:30; Status DC Hydroxyzine HCl (Atarax) 25 mg Q6HP PRN PO ANXIETY Last administered on 22:49; Start 11/17/16 at 00:00; Stop 12/17/16 at 00:00 Lisinopril (Prinivil) 20 mg DAILY PO Last administered on 11/22/16 08:30; Start 11/17/16 at 09:00; Stop 12/17/16 at 08:59 Magnesium Hydroxide (Milk Of Magnesia) 30 ml DAILYPRN PRN PO CONSTIPATION; Start 11/17/16 at 00:00; Stop 12/17/16 at 00:00 Montelukast Sodium (Singulair) 10 mg QHS PO Last administered on 11/21/16 20: 31; Start 11/16/16 at 21:00; Stop 12/16/16 at 20:59 Omeprazole (PriLOSEC) 40 mg QHS PO Last administered on 11/21/16 20:31; Start 11/16/16 at 21:00; Stop 12/16/16 at 20:59 Patient Own Medication (Patient'S Own Med) ARNUITY ELLIPTA 100... DAILY INH Last administered on 11/22/16 08:30; Start 11/17/16 at 09:00; Stop 12/17/16 at 08 :59 Tramadol HCl (Ultram) 50 mg Q6HP PRN PO PAIN Last administered on 11/22/16 16: 07; Start 11/17/16 at 00:00; Stop 11/24/16 at 00:00 Trazodone HCl (Desyrel) 100 mg QHSP PRN PO INSOMNIA Last administered on 22:49; Start 11/17/16 at 00:00; Stop 12/17/16 at 00:00 Venlafaxine HCl (Effexor Xr) 37.5 mg DAILY PO Last administered on 08:30; Start 11/18/16 at 09:00; Stop 12/18/16 at 08:59 Venlafaxine HCl (Effexor Xr) 150 mg DAILY PO Last administered on 08:30; Start 11/18/16 at 09:00; Stop 12/18/16 at 08:59 Venlafaxine HCl (Effexor Xr) 225 mg DAILY PO Last administered on 11/17/16 09:08; Start 11/17/16 at 09:00; Stop 11/17/16 at 18:19; Status DC Allergies Coded Allergies: Aspirin (Unverified Allergy, Unknown, 12/19/12) Ibuprofen (Unverified Allergy, Unknown, 12/19/12) NSAIDs (Unverified Allergy, Unknown, 11/16/16) Leia Vu Nov 22, 2016 16:23
[2016-11-22] MEDS: DOCUSATE SODIUM 100 MG CAP PO SCH (21:43)
[2016-11-22] MEDS: MONTELUKAST 10 MG TAB PO SCH (21:43)
[2016-11-22] MEDS: OMEPRAZOLE 20 MG CAP PO SCH (21:44)
[2016-11-22] MEDS: traZODone 100 MG TAB PO PRN (22:52)
[2016-11-22] MEDS: hydrOXYzine 25 MG TAB PO PRN (22:52)
[2016-11-23 08:08] VITALS: BP 120/60
[2016-11-23] MEDS: VENLAFAXINE **XR** 37.5 MG CAPSULE PO SCH (08:08)
[2016-11-23] MEDS: VENLAFAXINE **XR** 75MG CAPSULE PO SCH (08:08)
[2016-11-23] MEDS: LISINOPRIL 20 MG TAB PO SCH (08:08)
[2016-11-23] MEDS: CETIRIZINE (ZyrTEC) 10 MG TAB PO SCH (08:08)
[2016-11-23] MEDS: ALBUTEROL 90 MCG/ACT 8GM HFA INHALER INH PRN (08:08)
[2016-11-23] MEDS: FLUTICASONE PROP 0.05% NASAL SPRAY 16 GM (FLONASE) SCH (08:09)
[2016-11-23] MEDS: ARNUITY ELLIPTA 100 MCG INH SCH (08:09)
[2016-11-23] MEDS: ACETAMINOPHEN TAB 650MG DOSE (2X325MG) PO PRN (08:09)
[2016-11-23] MEDS: traMADol 50 MG TAB PO PRN (09:52)
[2016-11-23] MEDS ORDERED: VENL37CA PO (10:42)
[2016-11-23] MEDS ORDERED: FLON1SPR (11:15)
[2016-11-23] MEDS ORDERED: EFFE150C PO (11:15)
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
== END 2016-11-23 11:20 | disposition home or self-care (01) | DRG 753 ==
LOC: M ED 15:06 → M ED INP 20:31 → M PSY 22:16
PROVIDERS: ADMIT Psychiatry & Neurology Psychiatry; ATTEND Psychiatry & Neurology Psychiatry
DX: F31.9 Bipolar disorder, unspecified (principal); Z91.14 Patient's other noncompliance with medication regimen; F17.210 Nicotine dependence, cigarettes, uncomplicated; F43.10 Post-traumatic stress disorder, unspecified; M54.5 Low back pain; K21.9 Gastro-esophageal reflux disease without esophagitis; R94.6 Abnormal results of thyroid function studies; J45.909 Unspecified asthma, uncomplicated; Z79.899 Other long term (current) drug therapy; Z88.6 Allergy status to analgesic agent; Z90.49 Acquired absence of other specified parts of digestive tract; Z90.710 Acquired absence of both cervix and uterus; Z82.49 Family history of ischemic heart disease and other diseases of the circulatory system; Z83.3 Family history of diabetes mellitus; Z82.5 Family history of asthma and other chronic lower respiratory diseases; Z91.5 Personal history of self-harm

== ENCOUNTER 2017-02-24 22:26 | Emergency (ER) | payer MEDICAID, OTHER ==
[~2017-02-24] VITALS: Ht 172.7 cm; Wt 100.1 kg
[~2017-02-24 22:26] MED LIST: ALBU17IN; ALBU17IN INH; ALBU83IN INH; ARNU1INH; ARNU1INH INH; BENZ200C53; COLA100C5 PO; DOCQ100C; EFFE150C PO; FLON1SPR; HYDR-3363; HYDR-3363 PO; LISI-538; LISI-538 PO; MONT10TA2; MONT10TA2 PO; OMEP40CA2; OMEP40CA2 PO; PRED20TA; TRAM50TA2; TRAM50TA2 PO; TRAZ-136; TRAZ-136 PO; VENL225T PO; VENL37.52 PO; VENL75CA47
[2017-02-24 22:27] VITALS: BP 142/85
== END 2017-02-25 01:11 | disposition left against medical advice (07) ==
LOC: M ED 23:32
DX: L98.9 Disorder of the skin and subcutaneous tissue, unspecified (principal); Z53.21 Procedure and treatment not carried out due to patient leaving prior to being seen by health care provider

== ENCOUNTER → 2017-04-22 | Outpatient (REF) | payer OTHER ==
[2017-04-22 16:58] LABS: MEAN CORPUSCULAR HGB CONC 33.7 g/dl (32.0-36.5); MEAN CORPUSCULAR VOLUME 92.1 fl (80.0-96.0); WHITE BLOOD COUNT 7.8 K/mm3 (4.0-10.0)
[2017-04-22 16:59] LABS: ALBUMIN 3.9 GM/DL (3.2-5.2); ALBUMIN/GLOBULIN RATIO 1.11 (1.00-1.93); ALKALINE PHOSPHATASE 120 U/L (45-117); ALT/SGPT 53 U/L (12-78); ANION GAP 7 MEQ/L (8-16); AST/SGOT 29 U/L (15-37); BILIRUBIN,TOTAL 0.5 MG/DL (0.2-1.0); BLOOD UREA NITROGEN 15 MG/DL (7-18); CALCIUM LEVEL 9.2 MG/DL (8.5-10.1); CARBON DIOXIDE LEVEL 29 MEQ/L (21-32); CHLORIDE LEVEL 107 MEQ/L (98-107); CHOLESTEROL LEVEL 269 MG/DL (<200); CREATININE FOR GFR 0.78 MG/DL (0.55-1.02); GLOMERULAR FILTRATION RATE > 60.0 (>51); GLUCOSE, FASTING 103 MG/DL (70-105); POTASSIUM SERUM 4.4 MEQ/L (3.5-5.1); SODIUM LEVEL 143 MEQ/L (136-145); TOTAL PROTEIN 7.4 GM/DL (6.4-8.2); TRIGLYCERIDES LEVEL 177 MG/DL (<150)
== END ==
LOC: M SFHCLERA 13:18
PROVIDERS: ATTEND Physician Assistant
DX: R10.12 Left upper quadrant pain (principal); Z13.220 Encounter for screening for lipoid disorders

== ENCOUNTER → 2017-05-26 | Outpatient (CLI) | payer OTHER, MEDICAID ==
--- NOTE | 2017-05-26 15:48 | REP ---
Clinical: Dyspnea . Comparison: 11/03/2016 . Technique: PA and lateral. Findings: The mediastinum and cardiac silhouette are normal. The lung campos are clear and without acute consolidation, effusion, or pneumothorax. The skeletal structures are intact and normal. Impression: 1. No acute cardiopulmonary process. Signed by Rajeev Walsh MD 05/26/2017 03:39 P
== END ==
LOC: M LRY 15:17
PROVIDERS: ATTEND Physician Assistant
DX: R06.00 Dyspnea, unspecified (principal)

== ENCOUNTER 2017-10-04 13:01 | Emergency (ER) | payer OTHER, MEDICAID | END 2017-10-04 14:25 | disposition home or self-care (01) | LOC: M ED 13:01 | DX: S40.011A Contusion of right shoulder, initial encounter (principal); W19.XXXA Unspecified fall, initial encounter; Y92.099 Unspecified place in other non-institutional residence as the place of occurrence of the external cause; Y93.9 Activity, unspecified; Y99.9 Unspecified external cause status; I10 Essential (primary) hypertension; K21.9 Gastro-esophageal reflux disease without esophagitis; F17.200 Nicotine dependence, unspecified, uncomplicated; Z79.899 Other long term (current) drug therapy; Z88.6 Allergy status to analgesic agent | CPT/HCPCS: 73030 ==

== ENCOUNTER 2018-06-11 14:03 | Emergency (ER) | payer MEDICAID, OTHER | END 2018-06-11 15:54 | disposition home or self-care (01) | LOC: M ED 14:03 | DX: Z76.0 Encounter for issue of repeat prescription (principal); F32.9 Major depressive disorder, single episode, unspecified; E11.9 Type 2 diabetes mellitus without complications; J44.9 Chronic obstructive pulmonary disease, unspecified; J45.909 Unspecified asthma, uncomplicated; K21.9 Gastro-esophageal reflux disease without esophagitis; F17.200 Nicotine dependence, unspecified, uncomplicated; Z88.6 Allergy status to analgesic agent; Z88.8 Allergy status to other drugs, medicaments and biological substances; Z79.899 Other long term (current) drug therapy | CPT/HCPCS: 99283 ==

== ENCOUNTER 2018-06-19 13:02 | Emergency (ER) | payer MEDICAID ==
[2018-06-19] MEDS: ACETAMINOPHEN TAB 650MG DOSE (2X325MG) PO (16:01)
== END 2018-06-19 16:02 | disposition home or self-care (01) ==
LOC: M ED 13:02
DX: Z76.0 Encounter for issue of repeat prescription (principal); J44.9 Chronic obstructive pulmonary disease, unspecified; F41.9 Anxiety disorder, unspecified; F32.9 Major depressive disorder, single episode, unspecified; Z88.6 Allergy status to analgesic agent; Z88.8 Allergy status to other drugs, medicaments and biological substances; Z79.899 Other long term (current) drug therapy; Z79.51 Long term (current) use of inhaled steroids
CPT/HCPCS: 99283

== ENCOUNTER 2018-07-08 14:12 | Emergency (ER) | payer OTHER, MEDICAID | END 2018-07-08 15:11 | disposition home or self-care (01) | LOC: M ED 14:12 | DX: K08.89 Other specified disorders of teeth and supporting structures (principal); I10 Essential (primary) hypertension; K05.6 Periodontal disease, unspecified; Z97.2 Presence of dental prosthetic device (complete) (partial); Z79.899 Other long term (current) drug therapy | CPT/HCPCS: 99283 ==

== ENCOUNTER 2018-07-12 14:57 | Emergency (ER) | payer OTHER | END 2018-07-12 16:35 | disposition home or self-care (01) | LOC: M ED 14:57 | DX: Z76.0 Encounter for issue of repeat prescription (principal); F33.9 Major depressive disorder, recurrent, unspecified; G47.00 Insomnia, unspecified; F17.210 Nicotine dependence, cigarettes, uncomplicated; Z86.69 Personal history of other diseases of the nervous system and sense organs; Z88.8 Allergy status to other drugs, medicaments and biological substances; Z79.2 Long term (current) use of antibiotics | CPT/HCPCS: 99283 ==

== ENCOUNTER → 2018-07-31 | Outpatient (REF) | payer OTHER, MEDICAID ==
[2018-07-31 18:50] LABS: ALBUMIN 3.7 GM/DL (3.2-5.2); ALBUMIN/GLOBULIN RATIO 1.16 (1.00-1.93); ALKALINE PHOSPHATASE 84 U/L (45-117); ALT/SGPT 29 U/L (12-78); ANION GAP 5 MEQ/L (8-16); AST/SGOT 14 U/L (7-37); BILIRUBIN,TOTAL 0.4 MG/DL (0.2-1.0); BLOOD UREA NITROGEN 13 MG/DL (7-18); CALCIUM LEVEL 9.2 MG/DL (8.5-10.1); CARBON DIOXIDE LEVEL 34 MEQ/L (21-32); CHLORIDE LEVEL 102 MEQ/L (98-107); CHOLESTEROL LEVEL 246 MG/DL (<200); CHOLESTEROL RISK RATIO 4.241 (<5); CREATININE FOR GFR 0.78 MG/DL (0.55-1.30); GLOMERULAR FILTRATION RATE > 60.0 (>51); GLUCOSE, FASTING 70 MG/DL (70-100); HDL CHOLESTEROL 58 MG/DL (>40); LDL CHOLESTEROL 141 MG/DL (<100); NON-HDL-C 188 MG/DL; POTASSIUM SERUM 4.8 MEQ/L (3.5-5.1); SODIUM LEVEL 141 MEQ/L (136-145); TOTAL 25(OH) VITAMIN D 27.2 NG/ML (30.0-100.0); TOTAL PROTEIN 6.9 GM/DL (6.4-8.2); TRIGLYCERIDES LEVEL 235 MG/DL (<150); VITAMIN B12 LEVEL 902 PG/ML (247-911)
[2018-07-31 19:04] LABS: ESTIMATED AVERAGE GLUCOSE 111 MG/DL (60-110); HEMOGLOBIN A1c 5.5 %
[2018-07-31 19:13] LABS: BASO # 0.1 10^3/uL (0.0-0.2); BASO % 0.8 % (0.0-1.0); EOS # 0.3 10^3/uL (0.0-0.50); HEMATOCRIT 41.9 % (36.0-47.0); HEMOGLOBIN 13.4 g/dl (12.0-15.5); IMMATURE GRANULOCYTE % 0.2 % (0-3.0); LYMPH % 35.6 % (24.0-44.0); MEAN CORPUSCULAR HEMOGLOBIN 30.5 pg (27.0-33.0); MEAN CORPUSCULAR VOLUME 95.4 fl (80.0-96.0); MONO # 0.5 10^3/uL (0.0-0.8); MONO % 6.3 % (0.0-5.0); NEUTROPHILS # 4.5 10^3/uL (1.8-7.7); NEUTROPHILS % 53.1 % (36.0-66.0); PLATELET COUNT, AUTOMATED 435 10^3/uL (150-450); RED BLOOD COUNT 4.39 10^6/uL (4.00-5.40); RED CELL DISTRIBUTION WIDTH 12.7 % (11.5-14.5); WHITE BLOOD COUNT 8.4 10^3/uL (4.0-10.0)
== END ==
LOC: M LAB REF 16:35
DX: Z13.9 Encounter for screening, unspecified (principal)
CPT/HCPCS: 82746

== ENCOUNTER → 2018-09-29 | Outpatient (REF) | payer OTHER, MEDICAID ==
[~2018-09-29] MED LIST changes: +AMOX875T; -BENZ200C53; +BENZ200C70; -DOCQ100C; +DOCQ100C5; -EFFE150C PO; +EFFE150C2 PO; +NORCOTAB PO; +SING10TA32 PO; +SYMB16INH INH; -TRAZ-136; -TRAZ-136 PO; +TRAZ-163; +TRAZ-163 PO; +TRAZ1TAB14 PO; +TRAZ300T2 PO; +VENTAER INH; +ZYRTTAB8 PO
[2018-10-03 15:26] LABS: HPV HYBRID CAPTURE II Negative (Negative)
== END ==
LOC: M LAB REF 17:25
PROVIDERS: ATTEND Specialist
DX: Z12.4 Encounter for screening for malignant neoplasm of cervix (principal)

== ENCOUNTER → 2018-11-13 | Outpatient (CLI) | payer OTHER ==
--- NOTE | 2018-11-13 11:24 | REP ---
MRI lumbar spine without contrast: History: Low back pain. Comparison lumbar spine radiographs are from August 07, 2004. Technique: Sagittal and axial T1 and T2-weighted scans are acquired in the usual fashion with and without fat saturation. Sequences include spin echo, turbo spin-echo, and STIR imaging sequences. MRI findings: Lumbar vertebral body heights are preserved. Alignment is normal. There are reactive marrow changes along the superior endplate of L1 and on either side of the L4-5 and L5-S1 discs. The tip of the conus medullaris is normal in position and appearance at L1-L2. There is no evidence of spondylolysis or spondylolisthesis. No extra vertebral abnormality is observed. There is minimal diffuse bulging of the T12-L1 disc. This disc is narrowed. Disc bulge does not contact the cord. At L1-L2, there is no significant finding. At L2-3, there is minimal diffuse disc bulging. Facet and ligamentum flavum hypertrophy are present. No central canal stenosis or neural foraminal narrowing is seen. At L3-4, there is diffuse disc bulging. Moderate ligamentum flavum and facet hypertrophy is seen. There is borderline canal size. Mid AP dimension of the thecal sac is 9 mm at L3-4. No neural foraminal narrowing is appreciated. At L4-5, there is moderate degenerative disc narrowing. Diffuse disc bulging is seen moderate in degree. This indents the thecal sac. There is mild central canal stenosis at L4-5 due to diffuse disc bulging, ligamentum flavum hypertrophy, facet hypertrophy, and developmentally short pedicles. Thecal sac midline AP dimension is 11 mm. The thecal sac has a triangular configuration. There is minimal bilateral neural foraminal encroachment by facet joint spurs. At L5-S1, there is a right foraminal disc protrusion compressing the extradural segment of the nerve root. There is facet hypertrophy bilaterally. No central canal stenosis is seen. Impression: Degenerative spondylosis changes. Mild central canal stenosis at L4-5, borderline canal size at L3-4. Minimal bilateral neural foraminal encroachment at L4-5 and a right foraminal disc protrusion is seen at L5-S1. Electronically Signed by Abebe Plummer MD 11/13/2018 12:51 P
== END ==
LOC: M RAD 08:23
PROVIDERS: ATTEND Physician Assistant Surgical
DX: M51.36 Other intervertebral disc degeneration, lumbar region (principal); M51.27 Other intervertebral disc displacement, lumbosacral region; M48.061 Spinal stenosis, lumbar region without neurogenic claudication

== ENCOUNTER → 2019-07-04 | Outpatient (REF) | payer OTHER, MEDICAID ==
[~2019-07-04] MED LIST changes: +HYDR-3715 PO; -NORCOTAB PO; -OMEP40CA2; -OMEP40CA2 PO; +OMEP40CA97; +OMEP40CA97 PO; -VENL225T PO; +VENL225T5 PO
[2019-07-04 16:53] LABS: BASO # 0.1 10^3/uL (0.0-0.2); BASO % 0.8 % (0.0-1.0); EOS # 0.2 10^3/uL (0.0-0.5); EOS % 2.8 % (0.0-3.0); HEMATOCRIT 44.2 % (36.0-47.0); HEMOGLOBIN 14.9 g/dl (12.0-15.5); LYMPH # 2.4 10^3/uL (1.5-5.0); LYMPH % 27.6 % (24.0-44.0); MEAN CORPUSCULAR HGB CONC 33.7 g/dl (32.0-36.5); MONO # 0.6 10^3/uL (0.0-0.8); MONO % 6.4 % (0.0-5.0); NEUTROPHILS # 5.3 10^3/uL (1.5-8.5); NEUTROPHILS % 61.8 % (36.0-66.0); PLATELET COUNT, AUTOMATED 428 10^3/uL (150-450); RED BLOOD COUNT 4.51 10^6/uL (4.00-5.40); WHITE BLOOD COUNT 8.6 10^3/uL (4.0-10.0)
[2019-07-04 17:02] LABS: ALT/SGPT 46 U/L (12-78); BILIRUBIN,TOTAL 0.6 MG/DL (0.2-1.0); BLOOD UREA NITROGEN 16 MG/DL (7-18); CARBON DIOXIDE LEVEL 31 MEQ/L (21-32); CHLORIDE LEVEL 104 MEQ/L (98-107); CHOLESTEROL LEVEL 261 MG/DL (<200); CHOLESTEROL RISK RATIO 5.117 (<5); GLOMERULAR FILTRATION RATE > 60.0 (>51); GLUCOSE, FASTING 104 MG/DL (70-100); HDL CHOLESTEROL 51 MG/DL (>40); LDL CHOLESTEROL 149 MG/DL (<100); NON-HDL-C 210 MG/DL; POTASSIUM SERUM 4.4 MEQ/L (3.5-5.1); SODIUM LEVEL 139 MEQ/L (136-145); TOTAL 25(OH) VITAMIN D 20.5 NG/ML (30.0-100.0); TOTAL PROTEIN 7.3 GM/DL (6.4-8.2); TRIGLYCERIDES LEVEL 303 MG/DL (<150)
[2019-07-04 17:05] LABS: HEMOGLOBIN A1c 5.6 %
== END ==
LOC: M LAB REF 16:33
PROVIDERS: ATTEND Nurse Practitioner Family
DX: I10 Essential (primary) hypertension (principal); Z13.9 Encounter for screening, unspecified

== ENCOUNTER 2020-05-05 16:57 | Emergency (ER) | payer MEDICAID, OTHER ==
[~2020-05-05] VITALS: Ht 172.7 cm; Wt 89.3 kg
[~2020-05-05 16:57] MED LIST changes: -MONT10TA2; -MONT10TA2 PO; +MONT10TA4; +MONT10TA4 PO; -TRAZ-163; -TRAZ-163 PO; +TRAZ-257; +TRAZ-257 PO
[2020-05-05] MEDS ORDERED: LISI10TA4 (17:05)
[2020-05-05] MEDS ORDERED: PRED20TA PO (19:14)
[2020-05-05] MEDS ORDERED: methylPREDNISolone 125MG 2ML VIAL IM ONE (19:15)
[2020-05-05 19:26] VITALS: BP 131/79
== END 2020-05-05 19:27 | disposition home or self-care (01) ==
LOC: M ED 16:57
DX: M54.5 Low back pain (principal); I10 Essential (primary) hypertension; M51.9 Unspecified thoracic, thoracolumbar and lumbosacral intervertebral disc disorder; F17.200 Nicotine dependence, unspecified, uncomplicated; Z79.899 Other long term (current) drug therapy
CPT/HCPCS: 96372; 99283; J2930

== ENCOUNTER → 2020-06-19 | Outpatient (CLI) | payer OTHER ==
[~2020-06-19] MED LIST changes: +LISI10TA4; +PRED20TA PO
--- NOTE | 2020-06-19 14:48 | ECWPNPC ---
PATIENT NAME: KIM CAZARES : 1960 GENDER: FEMALE VISIT DATE: 06/19/2020 DISCHARGE DATE: 06/19/20 1415 VISIT LOCKED DATE TIME: PHYSICIAN: DENYS CALVO RESOURCE: DENYS CALVO REASON FOR APPOINTMENT 1. CHRONIC LOW BACK /RIGHT PERIFORMIS 2. NPC REFERRAL SCANNED 06/13 HISTORY OF PRESENT ILLNESS GENERAL: 59-YEAR-OLD FEMALE BEING REFERRED BY PRIMARY CARE FOR CHRONIC LOW BACK PAIN WITH BILATERAL LEG PAIN RIGHT GREATER THAN LEFT. PAIN BEGAN SEVERAL YEARS AGO WITHOUT PRECIPITATING EVENT. WAS FOLLOWING WITH PAIN CLINIC AND DOING INJECTIONS LAST YEAR THAT WERE TEMPORARILY EFFECTIVE. STATES SHE HAS USED TRAMADOL IN THE PAST USING 2-3 TABLETS A DAY WHICH WAS VERY HELPFUL AT KEEPING HER FUNCTIONAL AND ABLE TO WORK. SHE HAS BEEN WITHOUT PAIN MEDICATION FOR A YEAR. REPORTS POOR SLEEP DUE TO PAIN. FINDS IT DIFFICULT TO DO HER ACTIVITIES OF DAILY LIVING AND CHORES AROUND THE HOUSE DUE TO PAIN. SHE LIVES ALONE. RATING PAIN LEVEL AN 8/10 VAS. REVIEWED MRI AND DISCUSSED TREATMENT OPTIONS. - - -. FALL RISK SCREENING: SCREENING :TWO OR MORE FALLS WITH INJURY IN THE PAST YEAR FALLS RELATED TO HIP LOCKING UP AND SLIPPING ON ICE. HAS BEEN TO EMERGENCY ROOM. PAIN SCREENING: PATIENT HAS A COMPLAINT OF ACUTE OR CHRONIC PAIN :YES LOCATION OF PAIN:LOW BACK, OTHER: RIGHT BUTTOCKS INTENSITY OF PAIN (SCALE OF 1 TO 10):8 WHAT DOES YOUR PAIN FEEL LIKE:STABBING, OTHER RADIATING, DULL DURATION:CONTINOUS, CONSTANT, STEADY, ALL DAY, AWAKENS FROM SLEEP PAIN IS INCREASED BY:ACTIVITIES, PROLONGED STANDING, OTHERS WALKING, SITTING TOO LONG PAIN IS DECREASED BY:OTHERS SHIFTING POSITIONS, LAYING DOWN NURSING NOTE: - - -. PAIN CENTER INTAKE QUESTIONS: DO YOU HAVE A HISTORY OF MRSA? :NO DO YOU TAKE A BLOOD THINNERS? :NO DO YOU HAVE ANY BLEEDING DISORDERS? :NO ANY NEW NUMBNESS OR WEAKNESS IN YOUR LEGS OR ARMS? :YES NUMBNESS FROM HIPS DOWN TO TOES ANY PACEMAKER,DEFIBRILLATOR, OR DORSAL COLUMN STIMULATOR? :NO DO YOU HAVE ANY RASHES OR OPEN SORES? :NO ARE YOU ALLERGIC TO IV DYE? :NO ARE YOU DIABETIC? :NO ANY NEW PROBLEMS WITH YOUR MEDICATIONS? :NO HAVE YOU RECEIVED A VACCINE IN THE PAST 30 DAYS? :NO DO YOU PLAN TO RECEIVE A VACCINE IN THE NEXT 21 DAYS? :NO DO YOU NEED ANY PRESCRIPTION? :NO DO YOU TAKE ANY IMMUNOSUPPRESSIVE MEDICATIONS? :NO CURRENT MEDICATIONS TAKING ARNUITY ELLIPTA 200 MCG/ACT AEROSOL POWDER BREATH ACTIVATED 1 PUFF INHALATION ONCE A DAY TAKING SINGULAIR 10 MG TABLET 1 TABLET IN THE EVENING ORALLY ONCE A DAY TAKING COLACE 100MG CAPSULE 1 CAPSULE ORALLY BID NEEDED TAKING VENTOLIN HFA 108 (90 BASE) MCG/ACT AEROSOL SOLUTION 2 PUFFS NEEDED INHALATION EVERY 4 HRS TAKING ZYRTEC ALLERGY 10 MG TABLET 1 TABLET ORALLY ONCE A DAY TAKING LISINOPRIL 20 MG TABLET 1 TAB ORALLY DAILY TAKING OMEPRAZOLE 40 MG CAPSULE DELAYED RELEASE 1 CAPSULE ORALLY ONCE A DAY TAKING CYCLOBENZAPRINE HCL 10 MG TABLET 1 TABLET NEEDED ORALLY BID, NOTES: RARELY TAKES TAKING TYLENOL EXTRA STRENGTH 500 MG TABLET 1 TABLET NEEDED ORALLY EVERY 6 HRS NOT-TAKING VENLAFAXINE HCL ER 75 MG TABLET EXTENDED RELEASE 24 HOUR 3 TABLET WITH FOOD ORALLY ONCE A DAY NOT-TAKING VENLAFAXINE HCL ER 37.5 MG CAPSULE EXTENDED RELEASE 24 HOUR 1 CAPSULE WITH FOOD ORALLY ONCE A DAY, NOTES: TOTAL DOSE 187.5MG NOT-TAKING REGLAN 10 MG TABLET 1 TABLET ORALLY PRN NAUSEA (MDD: 1) NOT-TAKING ALBUTEROL SULFATE HFA 108 (90 BASE) MCG/ACT AEROSOL SOLUTION 2 PUFFS INHALATION EVERY 4-6 HRS PRN WHEEZING/COUGH NOT-TAKING OMEPRAZOLE 40 MG CAPSULE DELAYED RELEASE 1 CAPSULE ORALLY ONCE A DAY, NOTES: DUPLICATE NOT-TAKING LISINOPRIL 20 MG TABLET DIRECTED ORALLY DAILY NOT-TAKING PREDNISONE 10 MG TABLET 3 TABLETS ORALLY ONCE A DAY NOT-TAKING LOVASTATIN 20 MG TABLET 1 TABLET WITH A MEAL ORALLY ONCE A DAY IN THE EVENING FOR HIGH CHOLESTEROL NOT-TAKING TRAZODONE HCL 100 MG TABLET 2 TABLET AT BEDTIME ORALLY ONCE A DAY NOT-TAKING ALBUTEROL SULFATE (2.5 MG/3ML) 0.083% NEBULIZATION SOLUTION 1 VIAL INHALATION EVERY 6 HRS PRN NOT-TAKING ATORVASTATIN CALCIUM 40 MG TABLET 1 TABLET ORALLY ONCE A DAY NOT-TAKING HYDROXYZINE HCL 25 MG TABLET 1-2 TABLETS NEEDED ORALLY EVERY 8 HRS PRN NOT-TAKING SENNA-S 8.6-50 MG TABLET 2 TABLETS IN THE EVENING NEEDED ORALLY ONCE A DAY NOT-TAKING TRAMADOL HCL 50 MG TABLET 1 TABLET NEEDED ORALLY EVERY 6 HRS PRN MDD=4 MEDICATION LIST REVIEWED AND RECONCILED WITH THE PATIENT PAST MEDICAL HISTORY CHRONIC LOWER BACK PAIN - SPINAL STENOSIS DEPRESSION/ANXIETY INSOMNIA GERD ALLERGIC RHINITIS HYPERLIPIDEMIA NONDEPENDENT TOBACCO USE DISORDER OTHER AND UNSPECIFIED HYPERLIPIDEMIA DIVERTICULITIS OF COLON (WITHOUT MENTION OF HEMORRHAGE) HTN DDD OSTEOARTHRITIS ASTHMA ALLERGIES NSAIDS: ANAPHYLAXIS - ALLERGY ATORVASTATIN CALCIUM: SEVERE MUSCLE ACHES - ALLERGY SURGICAL HISTORY APPENDECTOMOY CHOLECYSTECTOMY 1982 PARTIAL HYSTERECTOMY (TUBES, POSSIBLE OVARIES) - FIBROIDS/PAIN 1980 TONSILLECTOMY FAMILY HISTORY FATHER: ALIVE, DM TYPE II, DIAGNOSED WITH OTHER SPECIFIED CONDITIONS INFLUENCING HEALTH STATUS, HYPERTENSION, DIABETES MOTHER: ALIVE, NO KNOWN MEDICAL PROBLEMS, HYPERTENSION 1 BROTHER(S) - HEALTHY. 1 SON(S) , 3 DAUGHTER(S) . BROTHER - SPINAL STENOSISFATHER - STROKE. SOCIAL HISTORY GENERAL: TOBACCO USE ARE YOU A:CURRENT SMOKER ARE YOU INTERESTED IN QUITTING?NOT READY TO QUIT HOW MANY CIGARETTES A DAY DO YOU SMOKE?6-10 HOW SOON AFTER YOU WAKE UP DO YOU SMOKE YOUR FIRST CIGARETTE?AFTER 60 MIN HOW OFTEN DO YOU SMOKE CIGARETTES?EVERY DAY PATIENT COUNSELED ON THE DANGERS OF TOBACCO USE AND URGED TO QUIT:06/19/2020 LATEX QUESTIONNAIRE LATEX ALLERGY : HAVE YOU EVER DEVELOPED ANY TYPE OF REACTION AFTER HANDLING LATEX PRODUCTS SUCH RUBBER GLOVES, CONDOMS, DIAPHRAGMS, BALLOONS, SOCKS, OR UNDERWEAR?NO LATEX ALLERGY : HAVE YOU EVER DEVELOPED ANY TYPE OF REACTION DURING OR AFTER DENTAL APPOINTMENT, VAGINAL/RECTAL EXAMINATION, SURGICAL PROCEDURE, OR ANY OTHER EXPOSURE?NO LATEX RISK : HAVE YOU EVER HAD ANY DIFFICULTY BREATHING OR HIVES AFTER EATING OR HANDLING ANY FRUITS, OR VEGETABLES; SUCH KIWI, BANANAS, STONE FRUITS, OR CHESTNUTSNO LATEX RISK : DO YOU HAVE A PREVIOUS PERSONAL HISTORY OF MORE THAN NINE SURGERIES, SPINA BIFIDA, OR REPEATED CATHERIZATIONS? NO LATEX RISK : ARE YOU FREQUENTLY EXPOSED TO LATEX PRODUCTS IN YOUR OCCUPATION?NO DATE ASKED : 06/19/2020 LUNG CANCER SCREENING SMOKING STATUS:FORMER SMOKER BMI CARE GOAL FOLLOW-UP ABOVE NORMAL BMI FOLLOW-UPDIETARY MANAGEMENT EDUCATION, GUIDANCE, AND COUNSELING, DIETARY NEEDS EDUCATION ALCOHOL SCREENING DID YOU HAVE A DRINK CONTAINING ALCOHOL IN THE PAST YEAR?NO POINTS0 INTERPRETATIONNEGATIVE RECREATIONAL DRUG USE DRUG USE?NO CAFFEINE 2-5/DAY. ROMAN CATHOLIC NO PENTECOSTAL BELIEFS THAT WOULD IMPACT HEALTH CARE. LANGUAGE JAPANESE, ERITREAN. EDUCATION SOME COLLEGE. LEARNING BARRIERS / SPECIAL NEEDS BARRIERS TO LEARNING?YES MEMORY PROBLEMS HEARING IMPAIRED?NO VISION IMPAIRED?YES FEELS LIKE SHE NEEDS GLASSES COGNITIVELY IMPAIRED?NO READINESS TO LEARN?YES LEARNING PREFERENCES?YES :DEMONSTRATION/VERBAL INSTRUCTION REPITITION LEARNING CAPABILITIES PRESENT?YES EMOTIONAL BARRIERS?NO SPECIAL DEVICES?NO SCENARIO WRITER NEEDED?NO DOMESTIC VIOLENCE NONE. OCCUPATION: [employer]. DIET: REGULAR. EXERCISE: WALKING. MARITAL STATUS: . OTHERS AT HOME: DAUGHTER. PAIN CLINIC PFS, CLERGY, PUBLIC HEALTH REFERRALS HAS THE PATIENT BEEN EDUCATED REGARDING HIS/HER PLAN OF CARE?YES HAS THE PATIENT BEEN EDUCATED REGARDING PAIN, THE RISK FOR PAIN, THE IMPORTANCE OF EFFECTIVE PAIN MANAGEMENT, AND THE PAIN ASSESSMENT PROCESS?YES ADVANCE DIRECTIVE ADVANCE DIRECTIVE DISCUSSED WITH PATIENT:YES PATIENT HAS NO ADVANCED DIRECTIVES AND DECLINED HCP INFORMATION AT THIS TIME. HOSPITALIZATION/MAJOR DIAGNOSTIC PROCEDURE RELATED TO SURGERIES CHILDBIRTH [birth year], 1991 [facility] 2017 REVIEW OF SYSTEMS CONSTITUTIONAL: ANY RECENT FEVER NO . CHILLS NO . WEIGHT CHANGE OF UNKNOWN REASONS NO . MUSCULOSKELETAL: ANY UNUSUAL JOINT PAIN OR SWELLING NOT MENTIONED NO . SYSTEMIC LUPUS NO . ANY NEUROMUSCULAR DISORDER NOT MENTIONED NO . LYME DISEASE NO . GASTROENTEROLOGY: ANY NEW CHANGE IN BOWEL CONTROL? NO . HISTORY OF LIVER DISORDER NOT MENTIONED NO . HISTORY OF UNUSUAL ABDOMINAL PAIN OR CRAMPING NOT MENTIONED NO . NO CONSTIPATION. GENITOURINARY: ANY NEW CHANGE IN BLADDER CONTROL? NO . ANY RENAL/KIDNEY CONDITON NOT MENTIONED NO . NEUROLOGY: HISTORY OF TBI NOT MENTIONED NO . OTHER NEW NUMBNESS OR PAIN PATTERNS NOT MENTIONED NO . NEW ONSET DIZZINESS OR NEUROLOGICAL CHANGES NOT MENTIONED NO . HISTORY OF SEVERE HEADACHES NOT MENTIONED NO . HISTORY OF STROKE OR NEUROLOGICAL DISORDER NOT MENTIONED NO . CARDIOLOGY: HEART SURGERY NO . CONGESTIVE HEART FAILURE/FLUID OVERLOAD NOT MENTIONED NO . HISTORY OF CHEST PAIN,IRREGULAR HEART BEAT NOT MENTIONED NO . RESPIRATORY: SHORTNESS OF BREATH ON EXERTION, WHEEZES, UNUSUAL COUGH NOT MENTIONED NO . ENDOCRINOLOGY: ADRENAL GLAND OR THYROID DISORDERS NOT MENTIONED NO . UNUSUAL URINATION, DIZZINESS OR LETHARGY NOT MENTIONED NO . VITAL SIGNS WT 199.8 LBS, HT 67.75 IN, BMI 30.60 INDEX, BP 146/75 MM HG, HR 83 /MIN, RR 18 /MIN, TEMP 97.3 F, OXYGEN SAT % 100%, SAFE IN ENV? (Y/N) YES, NA INITIALS SC 13:15, REVIEWED BY: CHAPARRITA. EXAMINATION GENERAL EXAMINATION: GENERAL AWAKE,ALERT ,PLEASANT . PSYCH AFFECT NORMAL . NECK: TRACHEA MIDLINE. NO CERVICAL OR SUPRACLAVICULAR LYMPHADENOPATHY NOTED. LUNGS: LUNG [place] ARE CLEAR TO AUSCULTATION BILATERALLY. GOOD MOVEMENT OF AIR . HEART: S1, S2 IN A REGULAR RATE AND RHYTHM. NO SIGNIFICANT MURMURS, RUBS OR GALLOPS NOTED . ABDOMEN: SOFT/NONTENDER. MUSCULOSKELETAL: MUSCLE STRENGTH TESTING -WEAKNESS NOTED OVER LOWER EXTREMITIES RIGHT GREATER THAN LEFT. LUMBAR: PALPATION: + FOR PAIN OVER L/S SPINE. + FOR PAIN OVER L/S PARASPINALS. . CERVICAL: NEGATIVE FOR PAIN WITH PALPATION OF CERVICAL SPINE. NEGATIVE FOR PAIN WITH PALPATION OF CERVICAL PARASPINALS. NEGATIVE FOR PAIN WITH PALPATION OF TRAPEZIUS BILAT. SKIN: NO RASH OR SKIN LESIONS. NEUROLOGIC EXAM: CN'S NORMAL TESTED , DTRS 1-2+ IN ALL 4 EXTREMITIES. DIAGNOSTIC TESTS REVIEWED MRI L/S SPINE-2019 . 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 SEE ATTACHED DOCUMENT FOR FULL DETAILS; SPECIFIC ISSUES WERE REVIEWED: 1) KEEP PAIN MEDS IN THEIR ORIGINAL BOTTLES AND ANY WEEKLY PLANNERS ARE TO BE BROUGHT TO THE PAIN CENTER AT EVERY VISIT. 2) THE PATIENT IS NOT TO INCREASE DOSING OR TIMING OF THEIR PAIN MEDICATION WITHOUT SPECIFIC DIRECTION OF THEIR PAIN CENTERPROVIDER (NOT ER OR OTHER PROVIDERS). 3) ALL PAIN MEDS ARE TO BE KEPT SECURED, IN A LOCKED BOX. 4) NO PAIN MEDS ARE TO BE SHARED WITH ANY OTHER PERSON FOR ANY REASON. 5) NO PAIN MEDS MAY BE TAKEN FROM ANY FRIENDS OR RELATIVES FOR ANY REASON 6) NO MEDS OR SUBSTANCES WHICH ARE NOT LEGAL ARE TO BE USED- NO MARIJUANA, NO COCAINE, AMPHETAMINES, HEROIN, OR OTHERS ARE EVER TO BE USED. 7)URINE TESTING IS DONE TO ACCOUNT FOR MEDS AND SUBSTANCES BEING TAKEN AND WILL BE DONE RANDOMLY. , RISKS OF NARCOTIC/OPIOD MEDICATIONS INCLUDES BUT IS NOT LIMITED TO RISK OF DEPENDANCE/DEVELOPMENT OF ADDICTION, MOOD DISTURBANCE AND DEPRESSION, OSTEOPOROSIS, HORMONAL AND LABIDAL CHANGES, RESPIRATORY DEPRESSION AND . PATIENT IS ADVISED NOT TO DRIVE OR DRINK ALCOHOL WHILE ON THESE MEDICATIONS. OTHERS CLINICAL NOTES: 06/18/20 @ 1100 NO ANSWER, NO VM SET UP. Gee GRANT STUDY HALL SUPERVISOR. PREVENTIVE MEDICINE PAIN CLINIC TEACHING: MEDICATIONS PRINTED INFORMATION ON TRAMADOL GIVEN TO AND REVIEWED WITH PATIENT AND SHE VERBALIZED UNDERSTANDING. AD. PROCEDURE CODES FA211 ESTABILISHED PATIENT [facility] CHARGE DISPOSITION & COMMUNICATION FOLLOW UP 2 MONTHS (REASON: MED MGMNT LBP) ELECTRONICALLY SIGNED BY KISHORE OLIVEROS ON 06/19/2020 AT 02:29 PM EDT DISCLAIMER : THIS IS A VISIT SUMMARY EXTRACTED FROM THE [employer] CHART. IT IS NOT A COPY OF THE [employer] PROGRESS NOTE. FRANCES
== END ==
LOC: M PAIN 13:00
PROVIDERS: ATTEND Nurse Practitioner Family
DX: M47.27 Other spondylosis with radiculopathy, lumbosacral region (principal); M51.26 Other intervertebral disc displacement, lumbar region; G89.29 Other chronic pain; G47.00 Insomnia, unspecified; K21.9 Gastro-esophageal reflux disease without esophagitis; E78.5 Hyperlipidemia, unspecified; I10 Essential (primary) hypertension; J45.909 Unspecified asthma, uncomplicated; F17.210 Nicotine dependence, cigarettes, uncomplicated; Z86.59 Personal history of other mental and behavioral disorders; Z88.6 Allergy status to analgesic agent; Z88.8 Allergy status to other drugs, medicaments and biological substances; Z79.51 Long term (current) use of inhaled steroids; Z79.899 Other long term (current) drug therapy

== ENCOUNTER 2020-08-28 14:35 | Emergency (ER) | payer OTHER ==
[~2020-08-28] VITALS: Ht 170.2 cm; Wt 88.2 kg
[~2020-08-28 14:35] MED LIST changes: -TRAZ-189; -VENL150C43
[2020-08-28] MEDS ORDERED: TRAZ-189 (14:57)
[2020-08-28] MEDS ORDERED: VENL150C43 (14:57)
--- NOTE | 2020-08-28 15:48 | REP ---
INDICATION: slurrd speech/neuro sx. COMPARISON: Comparison CT study February 01, 2014.. TECHNIQUE: Helical scanning is acquired. 5 mm axial images were reformatted. Coronal MPR images were generated. FINDINGS: Bone window settings demonstrate an intact bony calvarium. There is no evidence of skull fracture or incidental bony calvarial lesion. No intraorbital abnormality is seen. On soft tissue window setting images; the lateral, third, and fourth ventricles are normal in size and position. Ruffin-white differentiation pattern is normal above and below the tentorium. There are is no evidence of intracranial hemorrhage. No mass, edema, infarction, or midline shift is seen. No extra-axial fluid collection is appreciated. There is a calcified benign scalp nodule at the vertex 1.5 cm in diameter unchanged from the 2014 study. There is mild mucosal change in the ethmoid sinuses. IMPRESSION: No acute intracranial abnormality.. <Electronically signed by Garrett Plummer > 08/28/20 [id number]
[2020-08-28 15:52] LABS: BASO # 0.1 10^3/uL (0.0-0.2); BASO % 0.6 % (0.0-1.0); EOS # 0.2 10^3/uL (0.0-0.5); EOS % 2.7 % (0.0-3.0); HEMATOCRIT 46.2 % (36.0-47.0); LYMPH # 2.2 10^3/uL (1.5-5.0); LYMPH % 28.5 % (24.0-44.0); MEAN CORPUSCULAR HEMOGLOBIN 30.2 pg (27.0-33.0); MEAN CORPUSCULAR HGB CONC 32.5 g/dl (32.0-36.5); MONO # 0.5 10^3/uL (0.0-0.8); MONO % 5.8 % (0.0-5.0); NEUTROPHILS # 4.9 10^3/uL (1.5-8.5); NEUTROPHILS % 62.1 % (36.0-66.0); PLATELET COUNT, AUTOMATED 435 10^3/uL (150-450); RED BLOOD COUNT 4.97 10^6/uL (4.00-5.40); WHITE BLOOD COUNT 7.9 10^3/uL (4.0-10.0)
[2020-08-28] MEDS ORDERED: NS 1,000 ML IV ONE (16:00)
[2020-08-28 16:04] LABS: INR 0.89; PROTHROMBIN TIME 12.2 SECONDS (12.5-14.3)
[2020-08-28 16:05] LABS: PARTIAL THROMBOPLASTIN TIME 31.5 SECONDS (24.2-38.5)
[2020-08-28 16:14] LABS: BLOOD UREA NITROGEN 13 MG/DL (7-18); CALCIUM LEVEL 9.4 MG/DL (8.5-10.1); CARBON DIOXIDE LEVEL 31 MEQ/L (21-32); CHLORIDE LEVEL 106 MEQ/L (98-107); CK-MB VALUE MASS 1.5 NG/ML (<3.6); CPK CREATINE PHOSPHOKINASE 132 U/L (26-192); CREATININE FOR GFR 0.69 MG/DL (0.55-1.30); GLOMERULAR FILTRATION RATE > 60.0 (>51); GLUCOSE, FASTING 85 MG/DL (70-100); MB/CK RELATIVE INDEX 1.14 (< OR =4); POTASSIUM SERUM 3.7 MEQ/L (3.5-5.1); SODIUM LEVEL 140 MEQ/L (136-145); TROPONIN I < 0.02 NG/ML (< 0.10)
[2020-08-28 17:28] LABS: RSV AMPLIFICATION NEGATIVE (NEGATIVE)
--- NOTE | 2020-08-28 17:49 | REP ---
INDICATION: sob. COMPARISON: Comparison chest x-ray May 26, 2017. TECHNIQUE: Portable upright AP chest radiograph. FINDINGS: The lungs are well inflated and free of infiltrate. Pleural angles are sharp. Heart size is normal. Pulmonary vasculature is not increased. Monitoring electrodes are visible. IMPRESSION: No active disease. <Electronically signed by Garrett Plummer > 08/28/20 [id number]
[2020-08-28] MEDS ORDERED: ALBUTEROL 90 MCG/ACT 8GM HFA INHALER INH ONE (18:00)
[2020-08-28 18:09] VITALS: BP 133/94
--- NOTE | 2020-08-29 07:14 | ECGEPIP ---
[facility] - ED Test Date: 2020-08-28 Pat Name: KIM CAZARES Department: Room: - Gender: Female Borough Coordinator: [place] : 1960 Requested By: LALITO De La Rosa Order Number: [id number] Reading MD: Grupo Romero Measurements Intervals [place] Rate: 70 P: 38 RI: 167 QRS: 24 QRSD: 85 T: 40 QT: 409 QTc: 442 Interpretive Statements SINUS RHYTHM possible left atrial enlargement Similar to tracing done 09-19-16 Electronically Signed on 08-29-2020 7:14:16 EST by Grupo Romero
== END 2020-08-28 18:39 | disposition home or self-care (01) ==
LOC: M ED 14:35
DX: R06.02 Shortness of breath (principal); Z20.828 Contact with and (suspected) exposure to other viral communicable diseases; R42 Dizziness and giddiness; R43.9 Unspecified disturbances of smell and taste; R53.1 Weakness; R53.83 Other fatigue; R11.0 Nausea; R19.7 Diarrhea, unspecified; R51.9 Headache, unspecified; R05 Cough; E11.9 Type 2 diabetes mellitus without complications; J45.909 Unspecified asthma, uncomplicated; K21.9 Gastro-esophageal reflux disease without esophagitis; M54.9 Dorsalgia, unspecified; F41.9 Anxiety disorder, unspecified; F32.9 Major depressive disorder, single episode, unspecified; F17.200 Nicotine dependence, unspecified, uncomplicated; Z79.899 Other long term (current) drug therapy; Z88.6 Allergy status to analgesic agent; Z88.8 Allergy status to other drugs, medicaments and biological substances

== ENCOUNTER → 2020-08-28 | Outpatient (CLI) | payer OTHER ==
[~2020-08-28] MED LIST changes: -MONT10TA4; -MONT10TA4 PO; +MONT5TAB2; +MONT5TAB2 PO; +TRAZ-189; +VENL150C43
== END ==
LOC: M PAIN 14:15
PROVIDERS: ATTEND Nurse Practitioner Family
DX: Z53.21 Procedure and treatment not carried out due to patient leaving prior to being seen by health care provider (principal)

== ENCOUNTER → 2020-09-22 | Outpatient (CLI) | payer OTHER ==
[~2020-09-22] MED LIST changes: +TRAZ-189; +VENL150C43
--- NOTE | 2020-09-24 00:01 | ECWPNPC ---
PATIENT NAME: KIM CAZARES : 1960 GENDER: FEMALE VISIT DATE: 09/22/2020 DISCHARGE DATE: 09/22/20 1505 VISIT LOCKED DATE TIME: PHYSICIAN: DENYS CALVO RESOURCE: DENYS CALVO REASON FOR APPOINTMENT 1. MED MGMT LBP HISTORY OF PRESENT ILLNESS GENERAL: HERE FOR FOLLOW-UP AFTER INITIAL EVALUATION IN JUNE. PATIENT WAS PUT ON TRAMADOL AND CYCLOBENZAPRINE AT HER LAST VISIT. REPORTING SEVERE FATIGUE USING ONE OR 2 TABLETS A DAY WITHOUT IMPROVEMENT IN HER PAIN. SHE IS VERY UNCOMFORTABLE TODAY. REVIEWED MRI OF THE LUMBOSACRAL SPINE. SHE HAS SEVERE LUMBAR STENOSIS WELL A LUMBAR DISC PROTRUSION. REPORTING INTERMITTENT RIGHT LEG RADICULAR SYMPTOMS. OCCASIONALLY HAS LEFT LEG RADICULAR SYMPTOMS. HAS STRESS URINARY INCONTINENCE WHICH IS CHRONIC. DISCUSSED TREATMENT PLAN. SHE IS NOT ABLE TO TAKE NONSTEROIDAL ANTI-INFLAMMATORY MEDICATIONS DUE TO ALLERGY. -. FALL RISK SCREENING: SCREENING :TWO OR MORE FALLS WITHOUT INJURY IN THE PAST YEAR PAIN SCREENING: PATIENT HAS A COMPLAINT OF ACUTE OR CHRONIC PAIN :YES LOCATION OF PAIN:LOW BACK, LEFT HIP, RIGHT HIP, OTHER: TOP OF FEET INTENSITY OF PAIN (SCALE OF 1 TO 10):10 WHAT DOES YOUR PAIN FEEL LIKE:ACHING, THROBBING DURATION:CONTINOUS, CONSTANT, ALL DAY PAIN IS INCREASED BY:PROLONGED STANDING, OTHERS LAYING DOWN PAIN IS DECREASED BY:OTHERS NOTHING TREATMENT/MEDICATIONS USED TO MANAGE PAIN:OPIOIDS LEVEL OF RELIEF FROM PAIN TREATMENTS IN THE PAST:25% PAIN HAS INTERFERED WITH THE FOLLOWING:BATHING/DRESSING, WALKING ABILITY, SLEEP NURSING NOTE: -. PAIN CENTER INTAKE QUESTIONS: DO YOU HAVE A HISTORY OF MRSA? :NO DO YOU TAKE A BLOOD THINNERS? :NO DO YOU HAVE ANY BLEEDING DISORDERS? :NO ANY NEW NUMBNESS OR WEAKNESS IN YOUR LEGS OR ARMS? :NO ANY PACEMAKER,DEFIBRILLATOR, OR DORSAL COLUMN STIMULATOR? :NO DO YOU HAVE ANY RASHES OR OPEN SORES? :NO ARE YOU ALLERGIC TO IV DYE? :NO ARE YOU DIABETIC? :NO ANY NEW PROBLEMS WITH YOUR MEDICATIONS? :NO HAVE YOU RECEIVED A VACCINE IN THE PAST 30 DAYS? :NO DO YOU PLAN TO RECEIVE A VACCINE IN THE NEXT 21 DAYS? :NO DO YOU NEED ANY PRESCRIPTION? :NO DO YOU TAKE ANY IMMUNOSUPPRESSIVE MEDICATIONS? :NO IS THERE A CHANCE YOU COULD BE ? :NO ARE YOU BREAST FEEDING? :NO CURRENT MEDICATIONS TAKING ARNUITY ELLIPTA 200 MCG/ACT AEROSOL POWDER BREATH ACTIVATED 1 PUFF INHALATION ONCE A DAY TAKING SINGULAIR 10 MG TABLET 1 TABLET IN THE EVENING ORALLY ONCE A DAY TAKING COLACE 100MG CAPSULE 1 CAPSULE ORALLY BID NEEDED TAKING VENTOLIN HFA 108 (90 BASE) MCG/ACT AEROSOL SOLUTION 2 PUFFS NEEDED INHALATION EVERY 4 HRS TAKING ZYRTEC ALLERGY 10 MG TABLET 1 TABLET ORALLY ONCE A DAY TAKING LISINOPRIL 20 MG TABLET 1 TAB ORALLY DAILY TAKING OMEPRAZOLE 40 MG CAPSULE DELAYED RELEASE 1 CAPSULE ORALLY ONCE A DAY TAKING CYCLOBENZAPRINE HCL 10 MG TABLET 1 TABLET NEEDED ORALLY BID, NOTES: RARELY TAKES TAKING TRAMADOL HCL 50 MG TABLET 1 TABLET NEEDED ORALLY Q8H PRN MDD3 #45 TABS SHOULD LAST 30 DAYS NOT-TAKING TYLENOL EXTRA STRENGTH 500 MG TABLET 1 TABLET NEEDED ORALLY EVERY 6 HRS NOT-TAKING VENLAFAXINE HCL ER 75 MG TABLET EXTENDED RELEASE 24 HOUR 3 TABLET WITH FOOD ORALLY ONCE A DAY NOT-TAKING VENLAFAXINE HCL ER 37.5 MG CAPSULE EXTENDED RELEASE 24 HOUR 1 CAPSULE WITH FOOD ORALLY ONCE A DAY NOT-TAKING REGLAN 10 MG TABLET 1 TABLET ORALLY PRN NAUSEA (MDD: 1) NOT-TAKING ALBUTEROL SULFATE HFA 108 (90 BASE) MCG/ACT AEROSOL SOLUTION 2 PUFFS INHALATION EVERY 4-6 HRS PRN WHEEZING/COUGH NOT-TAKING OMEPRAZOLE 40 MG CAPSULE DELAYED RELEASE 1 CAPSULE ORALLY ONCE A DAY, NOTES: DUPLICATE NOT-TAKING LISINOPRIL 20 MG TABLET DIRECTED ORALLY DAILY NOT-TAKING PREDNISONE 10 MG TABLET 3 TABLETS ORALLY ONCE A DAY NOT-TAKING LOVASTATIN 20 MG TABLET 1 TABLET WITH A MEAL ORALLY ONCE A DAY IN THE EVENING FOR HIGH CHOLESTEROL NOT-TAKING TRAZODONE HCL 100 MG TABLET 2 TABLET AT BEDTIME ORALLY ONCE A DAY NOT-TAKING ALBUTEROL SULFATE (2.5 MG/3ML) 0.083% NEBULIZATION SOLUTION 1 VIAL INHALATION EVERY 6 HRS PRN NOT-TAKING ATORVASTATIN CALCIUM 40 MG TABLET 1 TABLET ORALLY ONCE A DAY NOT-TAKING HYDROXYZINE HCL 25 MG TABLET 1-2 TABLETS NEEDED ORALLY EVERY 8 HRS PRN NOT-TAKING SENNA-S 8.6-50 MG TABLET 2 TABLETS IN THE EVENING NEEDED ORALLY ONCE A DAY NOT-TAKING TRAMADOL HCL 50 MG TABLET 1 TABLET NEEDED ORALLY EVERY 6 HRS PRN MDD=4 MEDICATION LIST REVIEWED AND RECONCILED WITH THE PATIENT PAST MEDICAL HISTORY CHRONIC LOWER BACK PAIN - SPINAL STENOSIS DEPRESSION/ANXIETY INSOMNIA GERD ALLERGIC RHINITIS HYPERLIPIDEMIA NONDEPENDENT TOBACCO USE DISORDER OTHER AND UNSPECIFIED HYPERLIPIDEMIA DIVERTICULITIS OF COLON (WITHOUT MENTION OF HEMORRHAGE) HTN DDD OSTEOARTHRITIS ASTHMA ALLERGIES NSAIDS: ANAPHYLAXIS - ALLERGY ATORVASTATIN CALCIUM: SEVERE MUSCLE ACHES - ALLERGY SURGICAL HISTORY APPENDECTOMOY CHOLECYSTECTOMY 1982 PARTIAL HYSTERECTOMY (TUBES, POSSIBLE OVARIES) - FIBROIDS/PAIN 1980 TONSILLECTOMY FAMILY HISTORY FATHER: ALIVE, DM TYPE II, DIAGNOSED WITH HYPERTENSION, DIABETES, OTHER SPECIFIED CONDITIONS INFLUENCING HEALTH STATUS MOTHER: ALIVE, NO KNOWN MEDICAL PROBLEMS, HYPERTENSION 1 BROTHER(S) - HEALTHY. 1 SON(S) , 3 DAUGHTER(S) . BROTHER - SPINAL STENOSISFATHER - STROKE. SOCIAL HISTORY GENERAL: TOBACCO USE ARE YOU A:CURRENT SMOKER ARE YOU INTERESTED IN QUITTING?READY TO QUIT QUIT HOW MANY CIGARETTES A DAY DO YOU SMOKE?6-10 HOW SOON AFTER YOU WAKE UP DO YOU SMOKE YOUR FIRST CIGARETTE?AFTER 60 MIN HOW OFTEN DO YOU SMOKE CIGARETTES?EVERY DAY PATIENT COUNSELED ON THE DANGERS OF TOBACCO USE AND URGED TO QUIT:09/22/2020 LATEX QUESTIONNAIRE LATEX ALLERGY : HAVE YOU EVER DEVELOPED ANY TYPE OF REACTION AFTER HANDLING LATEX PRODUCTS SUCH RUBBER GLOVES, CONDOMS, DIAPHRAGMS, BALLOONS, SOCKS, OR UNDERWEAR?NO LATEX ALLERGY : HAVE YOU EVER DEVELOPED ANY TYPE OF REACTION DURING OR AFTER DENTAL APPOINTMENT, VAGINAL/RECTAL EXAMINATION, SURGICAL PROCEDURE, OR ANY OTHER EXPOSURE?NO LATEX RISK : HAVE YOU EVER HAD ANY DIFFICULTY BREATHING OR HIVES AFTER EATING OR HANDLING ANY FRUITS, OR VEGETABLES; SUCH KIWI, BANANAS, STONE FRUITS, OR CHESTNUTSNO LATEX RISK : DO YOU HAVE A PREVIOUS PERSONAL HISTORY OF MORE THAN NINE SURGERIES, SPINA BIFIDA, OR REPEATED CATHERIZATIONS? NO LATEX RISK : ARE YOU FREQUENTLY EXPOSED TO LATEX PRODUCTS IN YOUR OCCUPATION?NO DATE ASKED : 09/22/2020 LUNG CANCER SCREENING SMOKING STATUS:FORMER SMOKER BMI CARE GOAL FOLLOW-UP ABOVE NORMAL BMI FOLLOW-UPDIETARY MANAGEMENT EDUCATION, GUIDANCE, AND COUNSELING, DIETARY NEEDS EDUCATION ALCOHOL SCREENING DID YOU HAVE A DRINK CONTAINING ALCOHOL IN THE PAST YEAR?NO POINTS0 INTERPRETATIONNEGATIVE RECREATIONAL DRUG USE DRUG USE?NO CAFFEINE 2-5/DAY. LATTER DAY NO CHRISTIANITY BELIEFS THAT WOULD IMPACT HEALTH CARE. LANGUAGE [place], [place]. EDUCATION SOME COLLEGE. LEARNING BARRIERS / SPECIAL NEEDS BARRIERS TO LEARNING?YES MEMORY PROBLEMS HEARING IMPAIRED?NO VISION IMPAIRED?YES FEELS LIKE SHE NEEDS GLASSES COGNITIVELY IMPAIRED?NO READINESS TO LEARN?YES LEARNING PREFERENCES?YES :DEMONSTRATION/VERBAL INSTRUCTION REPITITION LEARNING CAPABILITIES PRESENT?YES EMOTIONAL BARRIERS?NO SPECIAL DEVICES?NO HYDRAULIC TESTER NEEDED?NO DOMESTIC VIOLENCE NONE. OCCUPATION: [employer]. DIET: REGULAR. EXERCISE: WALKING. MARITAL STATUS: . OTHERS AT HOME: DAUGHTER. PAIN CLINIC PFS, CLERGY, PUBLIC HEALTH REFERRALS HAS THE PATIENT BEEN EDUCATED REGARDING HIS/HER PLAN OF CARE?YES HAS THE PATIENT BEEN EDUCATED REGARDING PAIN, THE RISK FOR PAIN, THE IMPORTANCE OF EFFECTIVE PAIN MANAGEMENT, AND THE PAIN ASSESSMENT PROCESS?YES ADVANCE DIRECTIVE ADVANCE DIRECTIVE DISCUSSED WITH PATIENT:YES PATIENT HAS NO ADVANCED DIRECTIVES AND DECLINED HCP INFORMATION AT THIS TIME. HOSPITALIZATION/MAJOR DIAGNOSTIC PROCEDURE RELATED TO SURGERIES CHILDBIRTH 1976, 1978, 1991 [facility] 2017 REVIEW OF SYSTEMS CONSTITUTIONAL: ANY RECENT FEVER NO . CHILLS NO . WEIGHT CHANGE OF UNKNOWN REASONS NO . GASTROENTEROLOGY: NEW UNEXPLAINABLE CHANGES IN BOWEL CONTROL NO . CONSTIPATION NO . GENITOURINARY: ANY NEW CHANGE IN BLADDER CONTROL? NO . NEUROLOGY: NEW ONSET DIZZINESS OR NEUROLOGICAL CHANGES NOT MENTIONED NO . NEW NUMBNESS OR PAIN PATTERNS NOT MENTIONED AND PERTINENT TO TODAY'S VISIT NO . CARDIOLOGY: NEW CHEST PRESSURE NO . NEW CHEST PAIN NO . RESPIRATORY: UNEXPLAINABLE COUGH NO . NEW SHORTNESS OF BREATH NO . VITAL SIGNS WT 195.8 LBS, HT 67.75 IN, BMI 29.99 INDEX, BP 144/93 MM HG, HR 82 /MIN, RR 18 /MIN, TEMP 99.2 F, OXYGEN SAT % 95%, SAFE IN ENV? (Y/N) YES, NA INITIALS JS 1350, REVIEWED BY: POLY VALENZUELA. EXAMINATION GENERAL EXAMINATION: GENERAL AWAKE,ALERT ,PLEASANT . PSYCH AFFECT NORMAL . LUNGS: LUNG JOHNSTON ARE CLEAR TO AUSCULTATION BILATERALLY. GOOD MOVEMENT OF AIR . HEART: S1, S2 IN A REGULAR RATE AND RHYTHM. NO SIGNIFICANT MURMURS, RUBS OR GALLOPS NOTED . MUSCULOSKELETAL:SLIGHT WEAKNESS NOTED OVER RIGHT LEG COMPARED TO LEFT . LUMBAR: PALPATION: + FOR PAIN OVER L/S SPINE. + FOR PAIN OVER L/S PARASPINALS. MODIFIED SLE: POSITIVE OVER LOWER EXTREMITIES AT 45 RIGHT GREATER THAN LEFT.. DIAGNOSTIC TESTS REVIEWED MRI L/S SPINE-2019. ASSESSMENTS PROTRUDED LUMBAR DISC - M51.26 (PRIMARY) TREATMENT PROTRUDED LUMBAR DISC STOP TRAMADOL HCL TABLET, 50 MG, 1 TABLET NEEDED, ORALLY, Q8H PRN MDD3 #45 TABS SHOULD LAST 30 DAYS STOP CYCLOBENZAPRINE HCL TABLET, 10 MG, 1 TABLET NEEDED, ORALLY, BID, NOTES: RARELY TAKES START HYDROCODONE-ACETAMINOPHEN TABLET, 5-325 MG, 1 TABLET NEEDED, ORALLY, Q8H PRN MDD3.#45 TAB SHOULD LAST 30 DAYS, 30 DAYS, 45, REFILLS 0 NOTES: LUMBAR EPIDURAL STEROID INJECTION L4-5 , ISTOP REGISTRY REVIEWED AND DEMONSTRATES COMPLLIANCE. BRING MEDICATION TO EVERY APPOINTMENT THAT PAIN CLINIC PRESCRIBES , RISKS OF NARCOTIC/OPIOD MEDICATIONS INCLUDES BUT IS NOT LIMITED TO RISK OF DEPENDANCE/DEVELOPMENT OF ADDICTION, MOOD DISTURBANCE AND DEPRESSION, OSTEOPOROSIS, HORMONAL AND LABIDAL CHANGES, RESPIRATORY DEPRESSION AND . PATIENT IS ADVISED NOT TO DRIVE OR DRINK ALCOHOL WHILE ON THESE MEDICATIONS PRE-PROCEDURE INSTRUCTION DAVONTE VALENZUELA. PROCEDURE CODES FA211 ESTABILISHED PATIENT [facility] CHARGE DISPOSITION & COMMUNICATION FOLLOW UP POSTPROCEDURE/URINE TOX (REASON: LUMBAR EPIDURAL STEROID INJECTION L4-5) ELECTRONICALLY SIGNED BY KISHORE OLIVEROS ON 09/23/2020 AT 11:07 AM EST DISCLAIMER : THIS IS A VISIT SUMMARY EXTRACTED FROM THE [employer] CHART. IT IS NOT A COPY OF THE [employer] PROGRESS NOTE. FRANCES
== END ==
LOC: M PAIN 13:30
PROVIDERS: ATTEND Nurse Practitioner Family
DX: M51.26 Other intervertebral disc displacement, lumbar region (principal); F32.9 Major depressive disorder, single episode, unspecified; F41.9 Anxiety disorder, unspecified; G47.00 Insomnia, unspecified; K21.9 Gastro-esophageal reflux disease without esophagitis; J45.909 Unspecified asthma, uncomplicated; E78.5 Hyperlipidemia, unspecified; I10 Essential (primary) hypertension; F17.210 Nicotine dependence, cigarettes, uncomplicated; Z79.891 Long term (current) use of opiate analgesic; Z79.899 Other long term (current) drug therapy; Z88.6 Allergy status to analgesic agent; Z88.8 Allergy status to other drugs, medicaments and biological substances

== ENCOUNTER → 2020-10-29 | Outpatient (REF) | payer OTHER, MEDICAID ==
[~2020-10-29] MED LIST changes: -LISI-538; -LISI-538 PO; +LISI10TA22; -LISI10TA4; +LISI20TA33; +LISI20TA33 PO; +MONT10TA10; +MONT10TA10 PO; -MONT5TAB2; -MONT5TAB2 PO
[2020-10-29 19:28] LABS: ALBUMIN 3.6 GM/DL (3.2-5.2); ALT/SGPT 35 U/L (12-78); BILIRUBIN,TOTAL 0.4 MG/DL (0.2-1.0); BLOOD UREA NITROGEN 14 MG/DL (7-18); CALCIUM LEVEL 9.1 MG/DL (8.8-10.2); CARBON DIOXIDE LEVEL 31 MEQ/L (21-32); CHLORIDE LEVEL 103 MEQ/L (98-107); CHOLESTEROL LEVEL 241 MG/DL (<200); CHOLESTEROL RISK RATIO 4.381 (<5); GLOMERULAR FILTRATION RATE > 60.0 (>45); GLUCOSE, FASTING 96 MG/DL (70-100); HDL CHOLESTEROL 55 MG/DL (>40); LDL CHOLESTEROL 158 MG/DL (<100); NON-HDL-C 186 MG/DL; POTASSIUM SERUM 4.4 MEQ/L (3.5-5.1); SODIUM LEVEL 139 MEQ/L (136-145); TRIGLYCERIDES LEVEL 139 MG/DL (<150)
== END ==
LOC: M LAB REF 16:25
PROVIDERS: ATTEND Family Medicine Addiction Medicine
DX: I10 Essential (primary) hypertension (principal)

== ENCOUNTER → 2021-01-12 | Outpatient (CLI) | payer OTHER ==
--- NOTE | 2021-01-14 02:04 | ECWPNPC ---
PATIENT NAME: KIM CAZARES : 1960 GENDER: FEMALE VISIT DATE: 01/12/2021 DISCHARGE DATE: 01/12/21 1140 VISIT LOCKED DATE TIME: PHYSICIAN: DENYS CALVO RESOURCE: DENYS CALVO REASON FOR APPOINTMENT 1. F/U HISTORY OF PRESENT ILLNESS DEPRESSION SCREENING: PHQ-2 (2015 EDITION) LITTLE INTEREST OR PLEASURE IN DOING THINGS?NOT AT ALL FEELING DOWN, DEPRESSED, OR HOPELESS?NOT AT ALL TOTAL SCORE0 GENERAL: HERE FOR FOLLOW-UP OF CHRONIC LOW BACK PAIN. HAS MISSED SEVERAL APPOINTMENTS AND POSTPONED PROCEDURE DUE TO TRANSPORTATION ISSUES WELL IN THE FAMILY.. STARTED HYDROCODONE AT HER LAST VISIT SEVERAL MONTHS AGO. WE HAVE NOT SEEN HER BACK SINCE. STATES MEDICATION IS HELPFUL ALTHOUGH SHE WAS TAKING MORE THAN WHAT WAS PRESCRIBED SHE'S BEEN HAVING INJECTIONS IN HER FEET BY PODIATRY AND WAS IN ALOT OF PAIN. TODAY WE HAD A LONG DISCUSSION ABOUT THE NARCOTIC AGREEMENT. I'VE ALSO TOLD HER THAT MEDICATION THAT WE PRESCRIBE HERE IS FOR PERIODIC USE FOR BACK PAIN. INFORMED HER THAT WE WOULD HAVE TO SEE HER ON A REGULAR BASIS IN ORDER TO CONTINUE PRESCRIBING. SHE DID BRING HER EMPTY BOTTLES OF HYDROCODONE WITH HER. PATIENT VOICES UNDERSTANDING WITH COMPLIANCE WITH CLINIC POLICY. -. FALL RISK SCREENING: SCREENING :1 FALL IN LAST YEAR, NO MAJOR INJURIES; NO NEW FALLS SINCE LAST VISIT.. PAIN SCREENING: PATIENT HAS A COMPLAINT OF ACUTE OR CHRONIC PAIN :YES LOCATION OF PAIN:LOW BACK, LEG(S) INTENSITY OF PAIN (SCALE OF 1 TO 10):6 WHAT DOES YOUR PAIN FEEL LIKE:ACHING, STABBING DURATION:CONTINOUS, ALL DAY WORSENS WITH ACTIVITIES PAIN IS INCREASED BY:ACTIVITIES, OTHERS SITTING PAIN IS DECREASED BY:OTHERS LAYING DOWN NURSING NOTE: -. PAIN CENTER INTAKE QUESTIONS: DO YOU HAVE A HISTORY OF MRSA? :NO DO YOU TAKE A BLOOD THINNERS? :NO DO YOU HAVE ANY BLEEDING DISORDERS? :NO ANY NEW NUMBNESS OR WEAKNESS IN YOUR LEGS OR ARMS? :YES NUMBNESS TO BILATERAL TOES; STATES IT STARTED A FEW WEEKS AGO ANY PACEMAKER,DEFIBRILLATOR, OR DORSAL COLUMN STIMULATOR? :NO DO YOU HAVE ANY RASHES OR OPEN SORES? :NO ARE YOU ALLERGIC TO IV DYE? :NO ARE YOU DIABETIC? :NO BOARDERLINE ANY NEW PROBLEMS WITH YOUR MEDICATIONS? :NO HAVE YOU RECEIVED A VACCINE IN THE PAST 30 DAYS? :NO DO YOU PLAN TO RECEIVE A VACCINE IN THE NEXT 21 DAYS? :NO DO YOU NEED ANY PRESCRIPTION? :NO DO YOU TAKE ANY IMMUNOSUPPRESSIVE MEDICATIONS? :NO IS THERE A CHANCE YOU COULD BE ? :NO ARE YOU BREAST FEEDING? :NO CURRENT MEDICATIONS TAKING ARNUITY ELLIPTA 200 MCG/ACT AEROSOL POWDER BREATH ACTIVATED 1 PUFF INHALATION ONCE A DAY TAKING SINGULAIR 10 MG TABLET 1 TABLET IN THE EVENING ORALLY ONCE A DAY TAKING COLACE 100MG CAPSULE 1 CAPSULE ORALLY BID NEEDED TAKING VENTOLIN HFA 108 (90 BASE) MCG/ACT AEROSOL SOLUTION 2 PUFFS NEEDED INHALATION EVERY 4 HRS TAKING ZYRTEC ALLERGY 10 MG TABLET 1 TABLET ORALLY ONCE A DAY TAKING LISINOPRIL 40 MG TABLET 1 TAB ORALLY DAILY TAKING OMEPRAZOLE 40 MG CAPSULE DELAYED RELEASE 1 CAPSULE ORALLY ONCE A DAY TAKING HYDROCODONE-ACETAMINOPHEN 5-325 MG TABLET 1 TABLET NEEDED ORALLY Q8H PRN MDD3.#45 TAB SHOULD LAST 30 DAYS NOT-TAKING TYLENOL EXTRA STRENGTH 500 MG TABLET 1 TABLET NEEDED ORALLY EVERY 6 HRS NOT-TAKING VENLAFAXINE HCL ER 75 MG TABLET EXTENDED RELEASE 24 HOUR 3 TABLET WITH FOOD ORALLY ONCE A DAY NOT-TAKING VENLAFAXINE HCL ER 37.5 MG CAPSULE EXTENDED RELEASE 24 HOUR 1 CAPSULE WITH FOOD ORALLY ONCE A DAY NOT-TAKING REGLAN 10 MG TABLET 1 TABLET ORALLY PRN NAUSEA (MDD: 1) NOT-TAKING ALBUTEROL SULFATE HFA 108 (90 BASE) MCG/ACT AEROSOL SOLUTION 2 PUFFS INHALATION EVERY 4-6 HRS PRN WHEEZING/COUGH NOT-TAKING OMEPRAZOLE 40 MG CAPSULE DELAYED RELEASE 1 CAPSULE ORALLY ONCE A DAY, NOTES: DUPLICATE NOT-TAKING LISINOPRIL 20 MG TABLET DIRECTED ORALLY DAILY NOT-TAKING PREDNISONE 10 MG TABLET 3 TABLETS ORALLY ONCE A DAY NOT-TAKING LOVASTATIN 20 MG TABLET 1 TABLET WITH A MEAL ORALLY ONCE A DAY IN THE EVENING FOR HIGH CHOLESTEROL NOT-TAKING TRAZODONE HCL 100 MG TABLET 2 TABLET AT BEDTIME ORALLY ONCE A DAY NOT-TAKING ALBUTEROL SULFATE (2.5 MG/3ML) 0.083% NEBULIZATION SOLUTION 1 VIAL INHALATION EVERY 6 HRS PRN NOT-TAKING ATORVASTATIN CALCIUM 40 MG TABLET 1 TABLET ORALLY ONCE A DAY NOT-TAKING HYDROXYZINE HCL 25 MG TABLET 1-2 TABLETS NEEDED ORALLY EVERY 8 HRS PRN NOT-TAKING SENNA-S 8.6-50 MG TABLET 2 TABLETS IN THE EVENING NEEDED ORALLY ONCE A DAY NOT-TAKING TRAMADOL HCL 50 MG TABLET 1 TABLET NEEDED ORALLY EVERY 6 HRS PRN MDD=4 MEDICATION LIST REVIEWED AND RECONCILED WITH THE PATIENT PAST MEDICAL HISTORY CHRONIC LOWER BACK PAIN - SPINAL STENOSIS DEPRESSION/ANXIETY INSOMNIA GERD ALLERGIC RHINITIS HYPERLIPIDEMIA NONDEPENDENT TOBACCO USE DISORDER OTHER AND UNSPECIFIED HYPERLIPIDEMIA DIVERTICULITIS OF COLON (WITHOUT MENTION OF HEMORRHAGE) HTN DDD OSTEOARTHRITIS ASTHMA BONE SPURS BILATERAL FEET ALLERGIES NSAIDS: ANAPHYLAXIS - ALLERGY ATORVASTATIN CALCIUM: SEVERE MUSCLE ACHES - ALLERGY SOCIAL HISTORY GENERAL: TOBACCO USE ARE YOU A:CURRENT SMOKER ARE YOU INTERESTED IN QUITTING?THINKING ABOUT QUITTING QUIT HOW MANY CIGARETTES A DAY DO YOU SMOKE?6-10 HOW SOON AFTER YOU WAKE UP DO YOU SMOKE YOUR FIRST CIGARETTE?AFTER 60 MIN HOW OFTEN DO YOU SMOKE CIGARETTES?EVERY DAY PATIENT COUNSELED ON THE DANGERS OF TOBACCO USE AND URGED TO QUIT:01/12/2021 LATEX QUESTIONNAIRE LATEX ALLERGY : HAVE YOU EVER DEVELOPED ANY TYPE OF REACTION AFTER HANDLING LATEX PRODUCTS SUCH RUBBER GLOVES, CONDOMS, DIAPHRAGMS, BALLOONS, SOCKS, OR UNDERWEAR?NO LATEX ALLERGY : HAVE YOU EVER DEVELOPED ANY TYPE OF REACTION DURING OR AFTER DENTAL APPOINTMENT, VAGINAL/RECTAL EXAMINATION, SURGICAL PROCEDURE, OR ANY OTHER EXPOSURE?NO LATEX RISK : HAVE YOU EVER HAD ANY DIFFICULTY BREATHING OR HIVES AFTER EATING OR HANDLING ANY FRUITS, OR VEGETABLES; SUCH KIWI, BANANAS, STONE FRUITS, OR CHESTNUTSNO LATEX RISK : DO YOU HAVE A PREVIOUS PERSONAL HISTORY OF MORE THAN NINE SURGERIES, SPINA BIFIDA, OR REPEATED CATHERIZATIONS? NO LATEX RISK : ARE YOU FREQUENTLY EXPOSED TO LATEX PRODUCTS IN YOUR OCCUPATION?NO DATE ASKED : 01/12/2021 LUNG CANCER SCREENING SMOKING STATUS:FORMER SMOKER BMI CARE GOAL FOLLOW-UP ABOVE NORMAL BMI FOLLOW-UPDIETARY MANAGEMENT EDUCATION, GUIDANCE, AND COUNSELING, DIETARY NEEDS EDUCATION ALCOHOL SCREENING DID YOU HAVE A DRINK CONTAINING ALCOHOL IN THE PAST YEAR?NO POINTS0 INTERPRETATIONNEGATIVE RECREATIONAL DRUG USE DRUG USE?NO CAFFEINE 2-5/DAY. MU-ISM NO GNOSTICIST BELIEFS THAT WOULD IMPACT HEALTH CARE. LANGUAGE [place], [place]. EDUCATION SOME COLLEGE. 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 DIET: REGULAR. EXERCISE: WALKING. MARITAL STATUS: . OTHERS AT HOME: DAUGHTER. - HAS THE PATIENT BEEN EDUCATED REGARDING HIS/HER PLAN OF CARE?YES HAS THE PATIENT BEEN EDUCATED REGARDING PAIN, THE RISK FOR PAIN, THE IMPORTANCE OF EFFECTIVE PAIN MANAGEMENT, AND THE PAIN ASSESSMENT PROCESS?YES ADVANCE DIRECTIVE ADVANCE DIRECTIVE DISCUSSED WITH PATIENT:YES PATIENT HAS NO ADVANCED DIRECTIVES AND DECLINED HCP INFORMATION AT THIS TIME. REVIEW OF SYSTEMS CONSTITUTIONAL: ANY RECENT FEVER NO . CHILLS NO . WEIGHT CHANGE OF UNKNOWN REASONS NO . GASTROENTEROLOGY: NEW UNEXPLAINABLE CHANGES IN BOWEL CONTROL NO . CONSTIPATION NO . GENITOURINARY: ANY NEW CHANGE IN BLADDER CONTROL? NO . NEUROLOGY: NEW ONSET DIZZINESS OR NEUROLOGICAL CHANGES NOT MENTIONED NO . NEW NUMBNESS OR PAIN PATTERNS NOT MENTIONED AND PERTINENT TO TODAY'S VISIT NO . CARDIOLOGY: NEW CHEST PRESSURE NO . PATIENT DENIES NO . RESPIRATORY: UNEXPLAINABLE COUGH NO . NEW SHORTNESS OF BREATH NO . VITAL SIGNS WT 193.6 LBS, HT 67.75 IN, BMI 29.65 INDEX, BP 147/79 MM HG, HR 64 /MIN, RR 18 /MIN, TEMP 96.8 F, OXYGEN SAT % 97%, SAFE IN ENV? (Y/N) YES, NA INITIALS MT 1105, REVIEWED BY: Ca VARELA RN. EXAMINATION GENERAL EXAMINATION: GENERALAWAKE,ALERT ,PLEASANT . PSYCHAFFECT NORMAL . LUNGS:LUNG JOHNSTON ARE CLEAR TO AUSCULTATION BILATERALLY. GOOD MOVEMENT OF AIR . HEART:S1, S2 IN A REGULAR RATE AND RHYTHM. NO SIGNIFICANT MURMURS, RUBS OR GALLOPS NOTED . ASSESSMENTS CHRONIC PRESCRIPTION OPIATE USE - Z79.891 (PRIMARY) PROTRUDED LUMBAR DISC - M51.26 TREATMENT CHRONIC PRESCRIPTION OPIATE USE REFILL HYDROCODONE-ACETAMINOPHEN TABLET, 5-325 MG, 1 TABLET NEEDED, ORALLY, Q8H PRN MDD3.#45 TAB SHOULD LAST 30 DAYS, 30 DAYS, 45, REFILLS 0 NOTES: PATIENT IS CURRENTLY UNDER CARE WITH DR. MONROY, PODIATRY. WE WILL HOLD OFF ON STEROID INJECTIONS FOR THE TIME BEING. SHE HAS BEEN RECEIVING INJECTIONS OF STEROID MEDICATION IN HER FEET. PATIENT MUST MAINTAIN COMPLIANCE WITH APPOINTMENTS IN ORDER TO RECEIVE HER PAIN MEDICATION. ADVISED TO USE HYDROCODONE PERIODICALLY FOR SEVERE LOW BACK PAIN EPISODES. , ISTOP REGISTRY REVIEWED AND DEMONSTRATES COMPLLIANCE. PROCEDURE CODES FA211 ESTABILISHED PATIENT [facility] CHARGE DISPOSITION & COMMUNICATION FOLLOW UP 4 WEEKS (REASON: MEDICATION MANAGEMENT/URINE TOX) ELECTRONICALLY SIGNED BY KISHORE OLIVEROS ON 01/13/2021 AT 08:37 AM EDT DISCLAIMER : THIS IS A VISIT SUMMARY EXTRACTED FROM THE [employer] CHART. IT IS NOT A COPY OF THE [employer] PROGRESS NOTE. AKHILD
== END ==
LOC: M PAIN 11:15
PROVIDERS: ATTEND Nurse Practitioner Family
DX: M51.26 Other intervertebral disc displacement, lumbar region (principal); G89.29 Other chronic pain; G47.00 Insomnia, unspecified; K21.9 Gastro-esophageal reflux disease without esophagitis; J45.909 Unspecified asthma, uncomplicated; F17.210 Nicotine dependence, cigarettes, uncomplicated; Z86.59 Personal history of other mental and behavioral disorders; Z88.6 Allergy status to analgesic agent; Z88.8 Allergy status to other drugs, medicaments and biological substances; Z79.51 Long term (current) use of inhaled steroids; Z79.899 Other long term (current) drug therapy

== ENCOUNTER → 2021-01-23 | Outpatient (CLI) | payer OTHER ==
--- NOTE | 2021-01-23 14:20 | REP ---
INDICATION: PAIN. TECHNIQUE: AP pelvis and two views left hip FINDINGS: AP pelvis shows moderate to severe bilateral asymmetric hip joint space narrowing with prominent marginal osteophytosis. There is no acute fracture, dislocation, or subluxation. Two views of the left hip again shows the aforementioned findings in somewhat better detail. There are no additional abnormalities. IMPRESSION: Chronic changes as described above. <Electronically signed by Abelino Tracy > 01/23/21 0443
== END ==
LOC: M SOG 13:05
PROVIDERS: ATTEND Orthopaedic Surgery Adult Reconstructive Orthopaedic Surgery
DX: M25.752 Osteophyte, left hip (principal); M16.12 Unilateral primary osteoarthritis, left hip

== ENCOUNTER → 2021-02-12 | Outpatient (CLI) | payer OTHER ==
--- NOTE | 2021-02-14 06:20 | ECWPNPC ---
PATIENT NAME: KIM CAZARES : 1960 GENDER: FEMALE VISIT DATE: 02/12/2021 DISCHARGE DATE: 02/12/21 1155 VISIT LOCKED DATE TIME: PHYSICIAN: DENYS CALVO RESOURCE: DENYS CALVO REASON FOR APPOINTMENT 1. MEDICATION MANAGEMENT/URINE TOX HISTORY OF PRESENT ILLNESS GENERAL: HERE FOR FOLLOW-UP OF CHRONIC LOW BACK AND BILATERAL HIP PAIN. HAS BEEN FOLLOWING WITH ORTHOPEDICS RECENTLY FOR HIP PAIN AND THEY ARE CONSIDERING SURGERY. PATIENT HAS TRIED MEDICATIONS HERE TO INCLUDE NARCOTIC PAIN MEDICATIONS RECENTLY THAT WERE NOT HELPFUL AND CAUSE SIDE EFFECTS. PATIENT IS VERY DEPRESSED IN REGARDS TO PAIN. SHE APPEARS UNCOMFORTABLE TODAY. GENERALLY HASN'T BEEN FEELING WELL. REPORTS EMERGENCY ROOM VISIT FOR DIFFICULTY BREATHING AND PALPITATIONS. HER PRIMARY CARE PROVIDER HAS REFERRED HER TO CARDIOLOGY. THAT APPOINTMENT WILL BE COMING UP IN THE NEAR FUTURE. -. FALL RISK SCREENING: SCREENING HAS FALLEN A COUPLE OF TIMES, ONE FALL SHE FELL DOWN THE STAIRS BUT LANDED ON HER BUTTOCK BUT NO MARJOR INJURIES. PAIN SCREENING: PATIENT HAS A COMPLAINT OF ACUTE OR CHRONIC PAIN :YES LOCATION OF PAIN:LOW BACK INTENSITY OF PAIN (SCALE OF 1 TO 10):8 WHAT DOES YOUR PAIN FEEL LIKE:ACHING, BURNING, SHOOTING DURATION:CONTINOUS, CONSTANT, ALL DAY PAIN IS INCREASED BY:ACTIVITIES, PROLONGED STANDING PAIN IS DECREASED BY:USE OF PAIN MEDICATIONS NURSING NOTE: -. PAIN CENTER INTAKE QUESTIONS: DO YOU HAVE A HISTORY OF MRSA? :NO DO YOU TAKE A BLOOD THINNERS? :NO DO YOU HAVE ANY BLEEDING DISORDERS? :NO ANY NEW NUMBNESS OR WEAKNESS IN YOUR LEGS OR ARMS? :YES NUMBNESS TO BILATERAL TOES; STATES IT STARTED A FEW WEEKS AGO ANY PACEMAKER,DEFIBRILLATOR, OR DORSAL COLUMN STIMULATOR? :NO DO YOU HAVE ANY RASHES OR OPEN SORES? :NO ARE YOU ALLERGIC TO IV DYE? :NO ARE YOU DIABETIC? :NO BOARDERLINE ANY NEW PROBLEMS WITH YOUR MEDICATIONS? :NO HAVE YOU RECEIVED A VACCINE IN THE PAST 30 DAYS? :NO DO YOU PLAN TO RECEIVE A VACCINE IN THE NEXT 21 DAYS? :NO DO YOU NEED ANY PRESCRIPTION? :NO DO YOU TAKE ANY IMMUNOSUPPRESSIVE MEDICATIONS? :NO IS THERE A CHANCE YOU COULD BE ? :NO ARE YOU BREAST FEEDING? :NO CURRENT MEDICATIONS TAKING ARNUITY ELLIPTA 200 MCG/ACT AEROSOL POWDER BREATH ACTIVATED 1 PUFF INHALATION ONCE A DAY TAKING SINGULAIR 10 MG TABLET 1 TABLET IN THE EVENING ORALLY ONCE A DAY TAKING COLACE 100MG CAPSULE 1 CAPSULE ORALLY BID NEEDED TAKING VENTOLIN HFA 108 (90 BASE) MCG/ACT AEROSOL SOLUTION 2 PUFFS NEEDED INHALATION EVERY 4 HRS TAKING ZYRTEC ALLERGY 10 MG TABLET 1 TABLET ORALLY ONCE A DAY TAKING LISINOPRIL 40 MG TABLET 1 TAB ORALLY DAILY TAKING OMEPRAZOLE 40 MG CAPSULE DELAYED RELEASE 1 CAPSULE ORALLY ONCE A DAY TAKING HYDROCODONE-ACETAMINOPHEN 5-325 MG TABLET 1 TABLET NEEDED ORALLY Q8H PRN MDD3.#45 TAB SHOULD LAST 30 DAYS NOT-TAKING TYLENOL EXTRA STRENGTH 500 MG TABLET 1 TABLET NEEDED ORALLY EVERY 6 HRS NOT-TAKING VENLAFAXINE HCL ER 75 MG TABLET EXTENDED RELEASE 24 HOUR 3 TABLET WITH FOOD ORALLY ONCE A DAY NOT-TAKING VENLAFAXINE HCL ER 37.5 MG CAPSULE EXTENDED RELEASE 24 HOUR 1 CAPSULE WITH FOOD ORALLY ONCE A DAY NOT-TAKING REGLAN 10 MG TABLET 1 TABLET ORALLY PRN NAUSEA (MDD: 1) NOT-TAKING ALBUTEROL SULFATE HFA 108 (90 BASE) MCG/ACT AEROSOL SOLUTION 2 PUFFS INHALATION EVERY 4-6 HRS PRN WHEEZING/COUGH NOT-TAKING OMEPRAZOLE 40 MG CAPSULE DELAYED RELEASE 1 CAPSULE ORALLY ONCE A DAY, NOTES: DUPLICATE NOT-TAKING LISINOPRIL 20 MG TABLET DIRECTED ORALLY DAILY NOT-TAKING PREDNISONE 10 MG TABLET 3 TABLETS ORALLY ONCE A DAY NOT-TAKING LOVASTATIN 20 MG TABLET 1 TABLET WITH A MEAL ORALLY ONCE A DAY IN THE EVENING FOR HIGH CHOLESTEROL NOT-TAKING TRAZODONE HCL 100 MG TABLET 2 TABLET AT BEDTIME ORALLY ONCE A DAY NOT-TAKING ALBUTEROL SULFATE (2.5 MG/3ML) 0.083% NEBULIZATION SOLUTION 1 VIAL INHALATION EVERY 6 HRS PRN NOT-TAKING ATORVASTATIN CALCIUM 40 MG TABLET 1 TABLET ORALLY ONCE A DAY NOT-TAKING HYDROXYZINE HCL 25 MG TABLET 1-2 TABLETS NEEDED ORALLY EVERY 8 HRS PRN NOT-TAKING SENNA-S 8.6-50 MG TABLET 2 TABLETS IN THE EVENING NEEDED ORALLY ONCE A DAY NOT-TAKING TRAMADOL HCL 50 MG TABLET 1 TABLET NEEDED ORALLY EVERY 6 HRS PRN MDD=4 MEDICATION LIST REVIEWED AND RECONCILED WITH THE PATIENT PAST MEDICAL HISTORY CHRONIC LOWER BACK PAIN - SPINAL STENOSIS DEPRESSION/ANXIETY INSOMNIA GERD ALLERGIC RHINITIS HYPERLIPIDEMIA NONDEPENDENT TOBACCO USE DISORDER OTHER AND UNSPECIFIED HYPERLIPIDEMIA DIVERTICULITIS OF COLON (WITHOUT MENTION OF HEMORRHAGE) HTN DDD OSTEOARTHRITIS ASTHMA BONE SPURS BILATERAL FEET ALLERGIES NSAIDS: ANAPHYLAXIS - ALLERGY ATORVASTATIN CALCIUM: SEVERE MUSCLE ACHES - ALLERGY SURGICAL HISTORY APPENDECTOMOY 1970'S CHOLECYSTECTOMY 1983 PARTIAL HYSTERECTOMY (TUBES, POSSIBLE OVARIES) - FIBROIDS/PAIN 1981 TONSILLECTOMY STEROID INJECTIONS IN BOTH FOOT 2020 SOCIAL HISTORY GENERAL: TOBACCO USE ARE YOU A:CURRENT SMOKER ARE YOU INTERESTED IN QUITTING?THINKING ABOUT QUITTING QUIT, GOES BACK TO SMOKING COUNSELED THE PATIENT ON SMOKING CESSATION, EDUCATION [id number]/03/2021 HOW MANY CIGARETTES A DAY DO YOU SMOKE?6-10 HOW SOON AFTER YOU WAKE UP DO YOU SMOKE YOUR FIRST CIGARETTE?AFTER 60 MIN HOW OFTEN DO YOU SMOKE CIGARETTES?EVERY DAY PATIENT COUNSELED ON THE DANGERS OF TOBACCO USE AND URGED TO QUIT:01/12/2021 LATEX QUESTIONNAIRE LATEX ALLERGY : HAVE YOU EVER DEVELOPED ANY TYPE OF REACTION AFTER HANDLING LATEX PRODUCTS SUCH RUBBER GLOVES, CONDOMS, DIAPHRAGMS, BALLOONS, SOCKS, OR UNDERWEAR?NO LATEX ALLERGY : HAVE YOU EVER DEVELOPED ANY TYPE OF REACTION DURING OR AFTER DENTAL APPOINTMENT, VAGINAL/RECTAL EXAMINATION, SURGICAL PROCEDURE, OR ANY OTHER EXPOSURE?NO DATE ASKED : 01/12/2021 LATEX RISK : HAVE YOU EVER HAD ANY DIFFICULTY BREATHING OR HIVES AFTER EATING OR HANDLING ANY FRUITS, OR VEGETABLES; SUCH KIWI, BANANAS, STONE FRUITS, OR CHESTNUTSNO LATEX RISK : DO YOU HAVE A PREVIOUS PERSONAL HISTORY OF MORE THAN NINE SURGERIES, SPINA BIFIDA, OR REPEATED CATHERIZATIONS? NO LATEX RISK : ARE YOU FREQUENTLY EXPOSED TO LATEX PRODUCTS IN YOUR OCCUPATION?NO ALCOHOL USE: NO. LUNG CANCER SCREENING SMOKING STATUS:FORMER SMOKER BMI CARE GOAL FOLLOW-UP ABOVE NORMAL BMI FOLLOW-UPDIETARY MANAGEMENT EDUCATION, GUIDANCE, AND COUNSELING, DIETARY NEEDS EDUCATION ALCOHOL SCREENING DID YOU HAVE A DRINK CONTAINING ALCOHOL IN THE PAST YEAR?NO POINTS0 INTERPRETATIONNEGATIVE RECREATIONAL DRUG USE DRUG USE?NO CAFFEINE 2-5/DAY. TEMPLE NO MU-ISM BELIEFS THAT WOULD IMPACT HEALTH CARE. LANGUAGE CENTRAL AFRICAN, VINCENTIAN. EDUCATION SOME COLLEGE. LEARNING BARRIERS / SPECIAL NEEDS CHANGE FROM LAST VISIT?NO BARRIERS TO LEARNING?YES MEMORY PROBLEMS HEARING IMPAIRED?NO VISION IMPAIRED?YES FEELS LIKE SHE NEEDS GLASSES COGNITIVELY IMPAIRED?NO READINESS TO LEARN?YES LEARNING PREFERENCES?YES :DEMONSTRATION/VERBAL INSTRUCTION REPITITION LEARNING CAPABILITIES PRESENT?YES EMOTIONAL BARRIERS?NO SPECIAL DEVICES?YES :CANE STATES SHE NEEDS TO BUY A CANE STOCK CLIPPER NEEDED?NO OCCUPATION: [employer]. DIET: REGULAR. EXERCISE: WALKING. MARITAL STATUS: . OTHERS AT HOME: DAUGHTER. - HAS THE PATIENT BEEN EDUCATED REGARDING HIS/HER PLAN OF CARE?YES HAS THE PATIENT BEEN EDUCATED REGARDING PAIN, THE RISK FOR PAIN, THE IMPORTANCE OF EFFECTIVE PAIN MANAGEMENT, AND THE PAIN ASSESSMENT PROCESS?YES ADVANCE DIRECTIVE ADVANCE DIRECTIVE DISCUSSED WITH PATIENT:YES PATIENT HAS NO ADVANCED DIRECTIVES AND DECLINED HCP INFORMATION AT THIS TIME. HOSPITALIZATION/MAJOR DIAGNOSTIC PROCEDURE RELATED TO SURGERIES CHILDBIRTH 1976, 1978, 1991 [facility] 2017 REVIEW OF SYSTEMS CONSTITUTIONAL: ANY RECENT FEVER NO . CHILLS NO . WEIGHT CHANGE OF UNKNOWN REASONS NO . GASTROENTEROLOGY: NEW UNEXPLAINABLE CHANGES IN BOWEL CONTROL NO . CONSTIPATION NO . GENITOURINARY: ANY NEW CHANGE IN BLADDER CONTROL? NO . NEUROLOGY: NEW ONSET DIZZINESS OR NEUROLOGICAL CHANGES NOT MENTIONED NO . NEW NUMBNESS OR PAIN PATTERNS NOT MENTIONED AND PERTINENT TO TODAY'S VISIT NO . CARDIOLOGY: NEW CHEST PRESSURE NO . PATIENT DENIES NO . RESPIRATORY: UNEXPLAINABLE COUGH NO . NEW SHORTNESS OF BREATH NO . VITAL SIGNS WT 191 LBS, HT 67.75 IN, BMI 29.25 INDEX, BP 182/75 MM HG, HR 80 /MIN, RR 18 /MIN, TEMP 98.1 F, OXYGEN SAT % 99%, SAFE IN ENV? (Y/N) YES, NA INITIALS SC 11:19T.LAURO VALENZUELA, PATIENT STATED THATS SHE DID NOT TAKE HER MEDICATION THIS MORNING. EXAMINATION GENERAL EXAMINATION: GENERALAWAKE,ALERT ,PLEASANT . PSYCHAFFECT NORMAL . LUNGS:LUNG JOHNSTON ARE CLEAR TO AUSCULTATION BILATERALLY. GOOD MOVEMENT OF AIR . HEART:S1, S2 IN A REGULAR RATE AND RHYTHM. NO SIGNIFICANT MURMURS, RUBS OR GALLOPS NOTED . 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) USE OF OPIATE ANALGESIC - Z79.891 TREATMENT PROTRUDED LUMBAR DISC STOP HYDROCODONE-ACETAMINOPHEN TABLET, 5-325 MG, 1 TABLET NEEDED, ORALLY, Q8H PRN MDD3.#45 TAB SHOULD LAST 30 DAYS START BUTRANS PATCH WEEKLY, 10 MCG/HR, 1 PATCH TO SKIN, TRANSDERMAL, Q 7 DAYS =MDD, 30 DAYS, 4, REFILLS 0 PATIENT MEDICATION INVENTORY #1PRESCRIPTON #[id number] OF RX ON 01/20/2021RUG AND STRENGTHHYDROCODONE-ACETAMINOPHEN 5-325MGFORMULATIONWHITE TABVERIFIED DRUG IDENTITYT.RANDY CARVAJAL MA RNQUANTITY9 NOTES: DUE TO THE FACT THAT PATIENT CAN NOT TOLERATE NSAIDS,TRAMADOL OR HYDROCODONE 5/325 DUE TO SEVERE GI UPSET IM PRESCRIBING BUTRANS PATCH 10MCG EVERY 7 DAYS.SHE WAS INSTRUCTED ON PROPER USE OF BUTRANS PATCH.SHE IS CURRENTLY AWAITING VISIT TO CEO AND [employer] FOUNDER DUE TO RECENT EPISODES OF PALPATIONS,GENERALIZED MALAISE AND SHORTNESS OF BREATH. SENIOR CARE (CURRENT) USE OF OPIATE ANALGESIC PATIENT MEDICATION INVENTORY #1PRESCRIPTON #[id number] OF RX ON 1DRUG AND STRENGTHHYDROCODONE-ACETAMINOPHEN 5-325MGFORMULATIONWHITE TABVERIFIED DRUG IDENTITYT.RANDY CARVAJAL MA RNQUANTITY9 PROCEDURE CODES FA211 ESTABIL[address] PATIENT [facility] CHARGE DISPOSITION & COMMUNICATION FOLLOW UP 2 MONTHS (REASON: MED MGMNT/NEW START BUTRANS/CHECK ON FORMAL PILL DESTRUCTION) ELECTRONICALLY SIGNED BY KISHORE OLIVEROS ON 02/13/2021 AT 10:03 AM EDT DISCLAIMER : THIS IS A VISIT SUMMARY EXTRACTED FROM THE [employer] CHART. IT IS NOT A COPY OF THE [employer] PROGRESS NOTE. AKHILD
== END ==
LOC: M PAIN 11:00
PROVIDERS: ATTEND Nurse Practitioner Family
DX: M51.26 Other intervertebral disc displacement, lumbar region (principal); G89.29 Other chronic pain; G47.00 Insomnia, unspecified; K21.9 Gastro-esophageal reflux disease without esophagitis; J45.909 Unspecified asthma, uncomplicated; F17.210 Nicotine dependence, cigarettes, uncomplicated; Z86.59 Personal history of other mental and behavioral disorders; Z88.6 Allergy status to analgesic agent; Z88.8 Allergy status to other drugs, medicaments and biological substances; Z79.51 Long term (current) use of inhaled steroids; Z79.899 Other long term (current) drug therapy

== ENCOUNTER 2021-02-26 15:59 | Emergency (ER) | payer OTHER, MEDICAID ==
[~2021-02-26] VITALS: Ht 172.7 cm; Wt 86.4 kg
[2021-02-26 15:59] VITALS: BP 151/67
[~2021-02-26 15:59] MED LIST changes: +OMEP40CA4; +OMEP40CA4 PO; -OMEP40CA97; -OMEP40CA97 PO
[2021-02-26] MEDS ORDERED: LISI40TA4 (16:08)
[2021-02-26] MEDS ORDERED: HYDR-3713 (16:08)
[2021-02-26] MEDS ORDERED: ARNU1INH3 (16:08)
[2021-02-26] MEDS ORDERED: CETI-24 (16:08)
[2021-02-26] MEDS ORDERED: MONT10TA10 (16:08)
--- NOTE | 2021-02-26 16:36 | REP ---
INDICATION: fall. COMPARISON: 01/23/2021. TECHNIQUE: AP view pelvis, AP and frogleg views bilateral hips. FINDINGS: There is no evidence of acute fracture or dislocation bilaterally. There are moderate arthritic changes at both hip joints, with moderate joint space narrowing and subchondral sclerosis. There is mild to moderate spurring at the margins of both hip joints. There are mild degenerative changes of the lower lumbar spine. There are phleboliths in the pelvis. IMPRESSION: Arthritic changes without evidence of acute fracture or dislocation. <Electronically signed by Timoteo Ruffin > 02/26/21 [id number]
== END 2021-02-26 20:42 | disposition left against medical advice (07) ==
LOC: M ED 15:59
DX: Z53.21 Procedure and treatment not carried out due to patient leaving prior to being seen by health care provider (principal)

== ENCOUNTER → 2021-03-31 | Outpatient (CLI) | payer OTHER ==
[~2021-03-31] MED LIST changes: +ARNU1INH3; +CETI-24; +HYDR-3713; +LISI40TA4
--- NOTE | 2021-04-03 00:12 | ECWPNPC ---
PATIENT NAME: KIM CAZARES : 1960 GENDER: FEMALE VISIT DATE: 03/31/2021 DISCHARGE DATE: 03/31/21 1133 VISIT LOCKED DATE TIME: PHYSICIAN: DENYS CALVO RESOURCE: DENYS CALVO REASON FOR APPOINTMENT 1. MED MANAGEMENT HISTORY OF PRESENT ILLNESS GENERAL: HERE FOR FOLLOW-UP OF CHRONIC LOW BACK PAIN AND RIGHT HIP PAIN. PATIENT IS COMPLAINING OF SEVERE PAIN. SHE WALKS WITH A SIGNIFICANT LIMP AND A CANE. STATES SHE HAS BEEN TAKING 2 OF THE HYDROCODONE 5/325 TWICE A DAY BECAUSE TAKING IT PERIODICALLY WAS NOT WORKING. ALSO REPORTS THAT SHE DID NOT SEE [facility] RECOMMENDED FOR PALPITATIONS BECAUSE SHE CHANGED HER WHOLE MEDICAL PROVIDER SITUATION RECENTLY. CONTINUES TO HAVE EPISODES OF PALPITATIONS. STATES SHE HAS APPOINTMENT WITH NEW PRIMARY CARE PROVIDER SOON. -. FALL RISK SCREENING: SCREENING ONE FALL 2 MONTHS AGO, PATIENT DID GO THE ER, SHE STATED THAT SHE WALK OUT THE ER BECAUSE SHE WAS WAITING FOR TWO HOURS. PAIN SCREENING: PATIENT HAS A COMPLAINT OF ACUTE OR CHRONIC PAIN :YES LOCATION OF PAIN:LOW BACK, LEFT HIP, RIGHT HIP INTENSITY OF PAIN (SCALE OF 1 TO 10):8 WHAT DOES YOUR PAIN FEEL LIKE:ACHING, BURNING, TENDER, THROBBING, SORE DURATION:CONTINOUS, CONSTANT, ALL DAY, MAINLY DURING THE DAY PAIN IS INCREASED BY:ACTIVITIES, PROLONGED STANDING PAIN IS DECREASED BY:USE OF PAIN MEDICATIONS NURSING NOTE: -PATIENT STATED THAT SHE BELIEVE SHE IS ALLERGIC TO IV DYE " MAKES ME GO CRAZY " IT WAS ALONG TIME AGO AND ISNT 100% IF SHE IS. ALSO STATED THAT SHE IS ON BLOOD PRESSURE MEDICATION AND BLOOD PRESSURE IS A LITTLE TOO HIGH FOR HER. PAIN CENTER INTAKE QUESTIONS: DO YOU HAVE A HISTORY OF MRSA? :NO DO YOU TAKE A BLOOD THINNERS? :NO DO YOU HAVE ANY BLEEDING DISORDERS? :NO ANY NEW NUMBNESS OR WEAKNESS IN YOUR LEGS OR ARMS? :YES NUMBNESS TO BILATERAL TOES; STATES IT STARTED A FEW WEEKS AGO ANY PACEMAKER,DEFIBRILLATOR, OR DORSAL COLUMN STIMULATOR? :NO DO YOU HAVE ANY RASHES OR OPEN SORES? :NO ARE YOU ALLERGIC TO IV DYE? :YES NOT SURE ARE YOU DIABETIC? :NO BOARDERLINE ANY NEW PROBLEMS WITH YOUR MEDICATIONS? :YES THE NORCO 5-325MG IS NOT WORKING MUCH FOR HER, SHE HAS BEEN TAKING 2 IN THE AM,AND 2 AT BEDTIME HAVE YOU RECEIVED A VACCINE IN THE PAST 30 DAYS? :NO DO YOU PLAN TO RECEIVE A VACCINE IN THE NEXT 21 DAYS? :YES IF SO WHAT VACCINE AND WHEN? COVID DO YOU NEED ANY PRESCRIPTION? :YES DO YOU TAKE ANY IMMUNOSUPPRESSIVE MEDICATIONS? :NO IS THERE A CHANCE YOU COULD BE ? :NO ARE YOU BREAST FEEDING? :NO CURRENT MEDICATIONS TAKING ARNUITY ELLIPTA 200 MCG/ACT AEROSOL POWDER BREATH ACTIVATED 1 PUFF INHALATION ONCE A DAY TAKING COLACE 100MG CAPSULE 1 CAPSULE ORALLY BID NEEDED TAKING VENTOLIN HFA 108 (90 BASE) MCG/ACT AEROSOL SOLUTION 2 PUFFS NEEDED INHALATION EVERY 4 HRS TAKING ZYRTEC ALLERGY 10 MG TABLET 1 TABLET ORALLY ONCE A DAY TAKING LISINOPRIL 40 MG TABLET 1 TAB ORALLY DAILY TAKING OMEPRAZOLE 40 MG CAPSULE DELAYED RELEASE 1 CAPSULE ORALLY ONCE A DAY TAKING HYDROCODONE-ACETAMINOPHEN 5-325 MG TABLET 1 TABLET NEEDED ORALLY Q8H PRN MDD3.#45 TABS SHOULD LAST 30 DAYS NOT-TAKING SINGULAIR 10 MG TABLET 1 TABLET IN THE EVENING ORALLY ONCE A DAY NOT-TAKING BUTRANS 20 MCG/HR PATCH WEEKLY 1 PATCH TO SKIN TRANSDERMAL Q 7 DAYS =MDD NOT-TAKING TYLENOL EXTRA STRENGTH 500 MG TABLET 1 TABLET NEEDED ORALLY EVERY 6 HRS NOT-TAKING VENLAFAXINE HCL ER 75 MG TABLET EXTENDED RELEASE 24 HOUR 3 TABLET WITH FOOD ORALLY ONCE A DAY NOT-TAKING VENLAFAXINE HCL ER 37.5 MG CAPSULE EXTENDED RELEASE 24 HOUR 1 CAPSULE WITH FOOD ORALLY ONCE A DAY NOT-TAKING REGLAN 10 MG TABLET 1 TABLET ORALLY PRN NAUSEA (MDD: 1) NOT-TAKING ALBUTEROL SULFATE HFA 108 (90 BASE) MCG/ACT AEROSOL SOLUTION 2 PUFFS INHALATION EVERY 4-6 HRS PRN WHEEZING/COUGH NOT-TAKING OMEPRAZOLE 40 MG CAPSULE DELAYED RELEASE 1 CAPSULE ORALLY ONCE A DAY, NOTES: DUPLICATE NOT-TAKING LISINOPRIL 20 MG TABLET DIRECTED ORALLY DAILY NOT-TAKING PREDNISONE 10 MG TABLET 3 TABLETS ORALLY ONCE A DAY NOT-TAKING LOVASTATIN 20 MG TABLET 1 TABLET WITH A MEAL ORALLY ONCE A DAY IN THE EVENING FOR HIGH CHOLESTEROL NOT-TAKING TRAZODONE HCL 100 MG TABLET 2 TABLET AT BEDTIME ORALLY ONCE A DAY NOT-TAKING ALBUTEROL SULFATE (2.5 MG/3ML) 0.083% NEBULIZATION SOLUTION 1 VIAL INHALATION EVERY 6 HRS PRN NOT-TAKING ATORVASTATIN CALCIUM 40 MG TABLET 1 TABLET ORALLY ONCE A DAY NOT-TAKING HYDROXYZINE HCL 25 MG TABLET 1-2 TABLETS NEEDED ORALLY EVERY 8 HRS PRN NOT-TAKING SENNA-S 8.6-50 MG TABLET 2 TABLETS IN THE EVENING NEEDED ORALLY ONCE A DAY NOT-TAKING TRAMADOL HCL 50 MG TABLET 1 TABLET NEEDED ORALLY EVERY 6 HRS PRN MDD=4 MEDICATION LIST REVIEWED AND RECONCILED WITH THE PATIENT PAST MEDICAL HISTORY CHRONIC LOWER BACK PAIN - SPINAL STENOSIS DEPRESSION/ANXIETY INSOMNIA GERD ALLERGIC RHINITIS HYPERLIPIDEMIA NONDEPENDENT TOBACCO USE DISORDER OTHER AND UNSPECIFIED HYPERLIPIDEMIA DIVERTICULITIS OF COLON (WITHOUT MENTION OF HEMORRHAGE) HTN DDD OSTEOARTHRITIS ASTHMA BONE SPURS BILATERAL FEET ONE FALL 2 MONTHS AGO, PATIENT DID GO THE ER, SHE STATED THAT SHE WALK OUT THE ER BECAUSE SHE WAS WAITING FOR TWO HOURS. ALLERGIES NSAIDS: ANAPHYLAXIS - ALLERGY ATORVASTATIN CALCIUM: SEVERE MUSCLE ACHES - ALLERGY BUTRANS: STOMACH PAIN - SIDE EFFECTS SOCIAL HISTORY GENERAL: TOBACCO USE ARE YOU A:CURRENT SMOKER ARE YOU INTERESTED IN QUITTING?THINKING ABOUT QUITTING QUIT, GOES BACK TO SMOKING COUNSELED THE PATIENT ON SMOKING CESSATION, EDUCATION [id number]/20/2021 HOW MANY CIGARETTES A DAY DO YOU SMOKE?6-10 HOW SOON AFTER YOU WAKE UP DO YOU SMOKE YOUR FIRST CIGARETTE?AFTER 60 MIN HOW OFTEN DO YOU SMOKE CIGARETTES?EVERY DAY PATIENT COUNSELED ON THE DANGERS OF TOBACCO USE AND URGED TO QUIT:03/31/2021 LATEX QUESTIONNAIRE LATEX ALLERGY : HAVE YOU EVER DEVELOPED ANY TYPE OF REACTION AFTER HANDLING LATEX PRODUCTS SUCH RUBBER GLOVES, CONDOMS, DIAPHRAGMS, BALLOONS, SOCKS, OR UNDERWEAR?NO LATEX ALLERGY : HAVE YOU EVER DEVELOPED ANY TYPE OF REACTION DURING OR AFTER DENTAL APPOINTMENT, VAGINAL/RECTAL EXAMINATION, SURGICAL PROCEDURE, OR ANY OTHER EXPOSURE?NO LATEX RISK : HAVE YOU EVER HAD ANY DIFFICULTY BREATHING OR HIVES AFTER EATING OR HANDLING ANY FRUITS, OR VEGETABLES; SUCH KIWI, BANANAS, STONE FRUITS, OR CHESTNUTSNO LATEX RISK : DO YOU HAVE A PREVIOUS PERSONAL HISTORY OF MORE THAN NINE SURGERIES, SPINA BIFIDA, OR REPEATED CATHERIZATIONS? NO LATEX RISK : ARE YOU FREQUENTLY EXPOSED TO LATEX PRODUCTS IN YOUR OCCUPATION?NO DATE ASKED : 03/31/2021 ALCOHOL USE: NO. LUNG CANCER SCREENING SMOKING STATUS:FORMER SMOKER BMI CARE GOAL FOLLOW-UP ABOVE NORMAL BMI FOLLOW-UPDIETARY MANAGEMENT EDUCATION, GUIDANCE, AND COUNSELING, DIETARY NEEDS EDUCATION ALCOHOL SCREENING DID YOU HAVE A DRINK CONTAINING ALCOHOL IN THE PAST YEAR?NO POINTS0 INTERPRETATIONNEGATIVE RECREATIONAL DRUG USE DRUG USE?NO CAFFEINE 2-5/DAY. ZOROASTRIANISM NO ALEVISM BELIEFS THAT WOULD IMPACT HEALTH CARE. LANGUAGE LUXEMBOURGER, DJIBOUTIAN. EDUCATION SOME COLLEGE. LEARNING BARRIERS / SPECIAL NEEDS CHANGE FROM LAST VISIT?NO BARRIERS TO LEARNING?NO HEARING IMPAIRED?NO VISION IMPAIRED?YES FEELS LIKE SHE NEEDS GLASSES COGNITIVELY IMPAIRED?YES : SHORT TERM MEMORY PROBLEMS READINESS TO LEARN?YES LEARNING PREFERENCES?YES :DEMONSTRATION/VERBAL INSTRUCTION REPITITION LEARNING CAPABILITIES PRESENT?YES EMOTIONAL BARRIERS?YES COMMENTS DEPRESSION/ANXIETY SPECIAL DEVICES?YES :CANE STATES SHE NEEDS TO BUY A CANE INDUSTRIAL RELATIONS MANAGER NEEDED?NO OCCUPATION: [employer]. DIET: REGULAR. EXERCISE: WALKING. MARITAL STATUS: . OTHERS AT HOME: DAUGHTER. - HAS THE PATIENT BEEN EDUCATED REGARDING HIS/HER PLAN OF CARE?YES HAS THE PATIENT BEEN EDUCATED REGARDING PAIN, THE RISK FOR PAIN, THE IMPORTANCE OF EFFECTIVE PAIN MANAGEMENT, AND THE PAIN ASSESSMENT PROCESS?YES ADVANCE DIRECTIVE ADVANCE DIRECTIVE DISCUSSED WITH PATIENT:YES PATIENT HAS NO ADVANCED DIRECTIVES AND DECLINED HCP INFORMATION AT THIS TIME. REVIEW OF SYSTEMS CONSTITUTIONAL: ANY RECENT FEVER NO . CHILLS NO . WEIGHT CHANGE OF UNKNOWN REASONS NO . GASTROENTEROLOGY: NEW UNEXPLAINABLE CHANGES IN BOWEL CONTROL NO . CONSTIPATION NO . GENITOURINARY: ANY NEW CHANGE IN BLADDER CONTROL? NO . NEUROLOGY: NEW ONSET DIZZINESS OR NEUROLOGICAL CHANGES NOT MENTIONED NO . NEW NUMBNESS OR PAIN PATTERNS NOT MENTIONED AND PERTINENT TO TODAY'S VISIT NO . CARDIOLOGY: NEW CHEST PRESSURE NO . PATIENT DENIES NO . RESPIRATORY: UNEXPLAINABLE COUGH NO . NEW SHORTNESS OF BREATH NO . VITAL SIGNS WT 189.8 LBS, HT 67.75 IN, BMI 29.07 INDEX, BP 149/76 MM HG, HR 75 /MIN, RR 18 /MIN, TEMP 96.7 F, OXYGEN SAT % 95%, SAFE IN ENV? (Y/N) YES, NA INITIALS AW 1025T.WEI VALENZUELA. EXAMINATION GENERAL EXAMINATION: GENERAL AWAKE,ALERT ,PLEASANT . PSYCH AFFECT NORMAL . LUNGS: LUNG JOHNSTON ARE CLEAR TO AUSCULTATION BILATERALLY. GOOD MOVEMENT OF AIR . HEART: S1, S2 IN A REGULAR RATE AND RHYTHM. NO SIGNIFICANT MURMURS, RUBS OR GALLOPS NOTED . MUSCULOSKELETAL: WEAKNESS NOTED OVER RIGHT LEG. LUMBAR:MARKED TENDERNESS NOTED OVER LS AXIS AND LUMBAR PARASPINALS RIGHT GREATER THAN LEFT. ASSESSMENTS PROTRUDED LUMBAR DISC - M51.26 (PRIMARY) ALF (CURRENT) USE OF OPIATE ANALGESIC - Z79.891 TREATMENT PROTRUDED LUMBAR DISC INCREASE HYDROCODONE-ACETAMINOPHEN TABLET, 10-325 MG, 1 TABLET NEEDED, ORALLY, 1 TAB EVERY 8 HOURS NEEDED FOR PAIN NUMBER 70 TABLETS FOR A 30-DAY SUPPLY MDD 3, 30 DAYS, 70, REFILLS 0 LAB: URINE TEST GROUP SHAMAR CARVAJAL 03/31/2021 11:27:00 AM > LAST DOSE: HYDROCODONE 03/31/2021 NOTES: TODAY I HAVE ADVISED HER NEVER TO ADJUST HER NARCOTIC PAIN MEDICATION DOSE. SHE IS AWARE THAT THIS IS AGAINST OUR NARCOTIC AGREEMENT. TODAY I WILL GIVE HER HYDROCODONE 10/325 WITH THE UNDERSTANDING THAT SHE SHOULD TAKE THIS PERIODICALLY AND UP TO 3 TIMES A DAY IF NEEDED FOR SEVERE PAIN EPISODES. SHE WILL BE GIVEN 70 TABLETS FOR A 30-DAY SUPPLY. SHE IS AWARE THAT SHE NEEDS TO BE SEEN BY PRIMARY CARE FOR US TO CONTINUE CARING FOR HER AT THE PAIN CENTER. SHE STATES SHE HAS AN UPCOMING APPOINTMENT WITH NEW PRIMARY CARE PROVIDER. SHE STATES THAT SHE WILL ADDRESS PALPITATIONS WITH NEW PROVIDER. FOLLOW-UP AT THE PAIN CLINIC SCHEDULED IN 2 MONTHS. PROCEDURE CODES FA211 ESTABILISHED PATIENT [facility] CHARGE DISPOSITION & COMMUNICATION FOLLOW UP 2 MONTHS (REASON: REVIEW URINE TOX/PILL COUNT IDENTIFICATION) ELECTRONICALLY SIGNED BY KISHORE OLIVEROS ON 04/02/2021 AT 09:52 AM EDT DISCLAIMER : THIS IS A VISIT SUMMARY EXTRACTED FROM THE [employer] CHART. IT IS NOT A COPY OF THE [employer] PROGRESS NOTE. FRANCES
== END ==
LOC: M PAIN 11:00
PROVIDERS: ATTEND Nurse Practitioner Family
DX: M51.26 Other intervertebral disc displacement, lumbar region (principal); G89.29 Other chronic pain; K21.9 Gastro-esophageal reflux disease without esophagitis; F17.210 Nicotine dependence, cigarettes, uncomplicated; J45.909 Unspecified asthma, uncomplicated; Z86.59 Personal history of other mental and behavioral disorders; Z88.5 Allergy status to narcotic agent; Z88.6 Allergy status to analgesic agent; Z88.8 Allergy status to other drugs, medicaments and biological substances; Z79.51 Long term (current) use of inhaled steroids; Z79.899 Other long term (current) drug therapy

== ENCOUNTER 2021-05-15 11:21 | Emergency (ER) | payer OTHER ==
[~2021-05-15] VITALS: Ht 172.7 cm; Wt 86.4 kg
[2021-05-15] MEDS ORDERED: NORCO, ANEXSIA 5/325MG TABLET (HYDROcodone/ACETAMINOPHEN) PO ONE (13:15)
[2021-05-15] MEDS ORDERED: HYDR-3713 PO (13:30)
[2021-05-15 13:49] VITALS: BP 161/89
== END 2021-05-15 13:51 | disposition home or self-care (01) ==
LOC: M ED 11:21
DX: M25.551 Pain in right hip (principal); I10 Essential (primary) hypertension; J45.909 Unspecified asthma, uncomplicated; J44.9 Chronic obstructive pulmonary disease, unspecified; K21.9 Gastro-esophageal reflux disease without esophagitis; F41.9 Anxiety disorder, unspecified; F32.9 Major depressive disorder, single episode, unspecified; F17.200 Nicotine dependence, unspecified, uncomplicated; K57.90 Diverticulosis of intestine, part unspecified, without perforation or abscess without bleeding; Z96.643 Presence of artificial hip joint, bilateral; Z79.899 Other long term (current) drug therapy; Z88.8 Allergy status to other drugs, medicaments and biological substances; Z88.6 Allergy status to analgesic agent

== ENCOUNTER → 2021-06-04 | Outpatient (CLI) | payer OTHER ==
[~2021-06-04] MED LIST changes: +HYDR-3713 PO
== END ==
LOC: M PAIN 13:30
PROVIDERS: ATTEND Anesthesiology
DX: M51.16 Intervertebral disc disorders with radiculopathy, lumbar region (principal); G89.29 Other chronic pain; G47.00 Insomnia, unspecified; K21.9 Gastro-esophageal reflux disease without esophagitis; J45.909 Unspecified asthma, uncomplicated; F17.210 Nicotine dependence, cigarettes, uncomplicated; Z86.59 Personal history of other mental and behavioral disorders; Z88.5 Allergy status to narcotic agent; Z88.6 Allergy status to analgesic agent; Z88.8 Allergy status to other drugs, medicaments and biological substances; Z79.51 Long term (current) use of inhaled steroids; Z79.899 Other long term (current) drug therapy

== ENCOUNTER → 2021-07-03 | Outpatient (CLI) | payer OTHER | LOC: M PAIN 15:00 | PROVIDERS: ATTEND Anesthesiology | DX: M51.16 Intervertebral disc disorders with radiculopathy, lumbar region (principal); G89.29 Other chronic pain; K21.9 Gastro-esophageal reflux disease without esophagitis; J45.909 Unspecified asthma, uncomplicated; F17.210 Nicotine dependence, cigarettes, uncomplicated; Z86.59 Personal history of other mental and behavioral disorders; Z88.5 Allergy status to narcotic agent; Z88.6 Allergy status to analgesic agent; Z88.8 Allergy status to other drugs, medicaments and biological substances; Z79.51 Long term (current) use of inhaled steroids; Z79.899 Other long term (current) drug therapy ==

== ENCOUNTER → 2021-10-14 | Outpatient (CLI) | payer MEDICARE, OTHER ==
[~2021-10-14] MED LIST changes: -MONT10TA10; -MONT10TA10 PO; +MONT10TA97; +MONT10TA97 PO
[2021-10-14 16:04] LABS: HEMOGLOBIN A1c 5.4 %
== END ==
LOC: M WUC 13:09
PROVIDERS: ATTEND Orthopaedic Surgery Adult Reconstructive Orthopaedic Surgery
DX: M16.0 Bilateral primary osteoarthritis of hip (principal)

== ENCOUNTER 2021-10-28 11:04 | Emergency (ER) | payer MEDICARE, OTHER ==
[~2021-10-28] VITALS: Ht 172.7 cm; Wt 84.1 kg
[2021-10-28] MEDS ORDERED: predniSONE 20 MG TAB PO ONE (12:30)
[2021-10-28] MEDS ORDERED: ANEXSIA, NORCO 7.5MG/325MG TABLET(HYDROCODONE/APAP) PO ONE (12:30)
[2021-10-28] MEDS ORDERED: HYDR-3713 PO (13:04)
[2021-10-28] MEDS ORDERED: CAPS0.022 TOP (13:04)
[2021-10-28 13:12] VITALS: BP 142/83
== END 2021-10-28 13:15 | disposition home or self-care (01) ==
LOC: M ED 11:04
DX: M25.552 Pain in left hip (principal); E11.9 Type 2 diabetes mellitus without complications; I10 Essential (primary) hypertension; J44.9 Chronic obstructive pulmonary disease, unspecified; K21.9 Gastro-esophageal reflux disease without esophagitis; Z79.899 Other long term (current) drug therapy; Z88.8 Allergy status to other drugs, medicaments and biological substances; Z88.6 Allergy status to analgesic agent
CPT/HCPCS: 99283; J7512

== ENCOUNTER 2021-11-02 13:31 | Outpatient (RCR) | payer MEDICARE, OTHER ==
[~2021-11-02 13:31] MED LIST changes: +CAPS0.022 TOP
== END 2021-11-09 ==
LOC: M PT 13:31
PROVIDERS: ATTEND Orthopaedic Surgery Adult Reconstructive Orthopaedic Surgery
DX: M16.0 Bilateral primary osteoarthritis of hip (principal)

== ENCOUNTER → 2021-11-23 | Outpatient (CLI) | payer MEDICARE, OTHER ==
[~2021-11-23] MED LIST changes: -CETI-24; +CETI-24 PO; +OMEP40CA5 PO; +TRAZ-189 PO; +VENL150C43 PO
== END ==
LOC: M PLAIMG 10:05
PROVIDERS: ATTEND Orthopaedic Surgery Adult Reconstructive Orthopaedic Surgery
DX: M16.0 Bilateral primary osteoarthritis of hip (principal); Z53.9 Procedure and treatment not carried out, unspecified reason

== ENCOUNTER → 2021-11-24 | Outpatient (CLI) | payer OTHER | LOC: M PLAIMG 08:55 | PROVIDERS: ATTEND Orthopaedic Surgery Adult Reconstructive Orthopaedic Surgery | DX: M16.0 Bilateral primary osteoarthritis of hip (principal); M25.752 Osteophyte, left hip ==

== ENCOUNTER → 2021-11-30 | Outpatient (CLI) | payer MEDICARE, OTHER ==
[~2021-11-30] MED LIST changes: +ASCO50TA PO; +BACL10TA2 PO; +FERR1TAB8 PO; -LISI40TA4; +LISI40TA4 PO; +MIRA1POW3 PO; +VENL75CA47 PO; +XARE10TA PO
== END ==
LOC: M RAD 14:29
PROVIDERS: ATTEND Physician Assistant
DX: Z01.810 Encounter for preprocedural cardiovascular examination (principal); I10 Essential (primary) hypertension

== ENCOUNTER → 2021-11-30 | Outpatient (CLI) | payer OTHER ==
[~2021-11-30] MED LIST changes: -ASCO50TA PO; -BACL10TA2 PO; -FERR1TAB8 PO; +LISI40TA4; -LISI40TA4 PO; -MIRA1POW3 PO; -VENL75CA47 PO; -XARE10TA PO
== END ==
LOC: M RAD 14:25
PROVIDERS: ATTEND Physician Assistant
DX: R06.00 Dyspnea, unspecified (principal)

== ENCOUNTER → 2021-12-03 | Outpatient (CLI) | payer MEDICARE, OTHER | LOC: M LABSMTC 10:34 | PROVIDERS: ATTEND Anesthesiology | DX: Z01.818 Encounter for other preprocedural examination (principal); Z11.52 Encounter for screening for COVID-19 ==

== ENCOUNTER 2021-12-07 06:07 | Inpatient (IN) | payer MEDICARE, OTHER ==
[2021-12-07] VITALS (7 sets, daily range): BP systolic 89–137; BP diastolic 51–72
[~2021-12-07] VITALS: Ht 172.7 cm; Wt 82.9 kg
[2021-12-07] MEDS: PREGABALIN 25 MG CAP (LYRICA) PO ONE ×2 (06:00→07:17)
[~2021-12-07 06:07] MED LIST changes: +ACETAMINOPHEN 500 MG TAB PO ONE; -LISI40TA4; +LISI40TA4 PO; +NS 1,000 ML IV ONE; +ROPIVA 125MG/EPINEPH 0.25MG/CLONID 40MCG IN NS 50ML SYRINGE PA ONE; +ceFAZolin SOD 2 GM in IV 1 EA IV ONE; +dexameTHASONE 4 MG/ML 1ML VIAL (J1100 PER 1MG) IV ONE
[2021-12-07] MEDS ORDERED: MIDAZOLAM INJ 2MG/2ML VIAL (J2250 PER 1MG) As Ordered ONE (06:57)
[2021-12-07] MEDS ORDERED: SUGAMMADEX SODIUM 500 MG/5 ML VIAL (BRIDION) As Ordered ONE (06:58)
[2021-12-07] MEDS ORDERED: LIDOCAINE 2% 100MG/5ML SDV (FOR ANES.) As Ordered ONE (06:58)
[2021-12-07] MEDS ORDERED: ROCURONIUM BROMIDE 50 MG/5 ML VIAL As Ordered ONE ×2 (06:58→08:36)
[2021-12-07] MEDS ORDERED: ONDANSETRON 4MG/2ML VIAL As Ordered ONE (06:58)
[2021-12-07] MEDS ORDERED: dexameTHASONE 4 MG/ML 1ML VIAL (J1100 PER 1MG) As Ordered ONE ×2 (06:58→07:59)
[2021-12-07] MEDS ORDERED: propofoL 200 MG/20 ML VIAL As Ordered ONE (06:58)
[2021-12-07] MEDS ORDERED: fentaNYL 100 MCG/2 ML INJECTION As Ordered ONE ×3 (06:58→10:25)
[2021-12-07] MEDS: TRANEXAMIC ACID 100 MG/ML 10ML VIAL As Ordered ONE (07:46)
[2021-12-07] MEDS ORDERED: ePHEDrine SULFATE 25 MG/5 ML(5MG/ML) SYRINGE As Ordered ONE ×2 (08:59→10:18)
[2021-12-07] MEDS ORDERED: PHENYLephrine 500MCG 5ML (100MCG/ML) SYRINGE As Ordered ONE (10:18)
[2021-12-07] MEDS ORDERED: ONDANSETRON 4MG/2ML VIAL IV PRN ×2 (10:50→10:55)
[2021-12-07] MEDS ORDERED: SENNA 8.6 MG TAB (SENOKOT) PO PRN (10:50)
[2021-12-07] MEDS ORDERED: traMADol 50 MG TAB PO PRN (10:50)
[2021-12-07] MEDS ORDERED: oxyCODONE 5MG TAB PO PRN ×3 (10:50)
[2021-12-07] MEDS: fentaNYL 100 MCG/2 ML INJECTION IV PRN ×4 (11:00→11:25)
[2021-12-07] MEDS ORDERED: DEXTROSE 50% 50 ML SYRINGE IV PRN (11:10)
[2021-12-07] MEDS ORDERED: GLUCOSE 4GM CHEW TABLET PO PRN (11:10)
[2021-12-07] MEDS ORDERED: GLUCAGON INJ 1MG VIAL SC PRN (11:10)
[2021-12-07] MEDS ORDERED: ALBUTEROL SULFATE 2.5 MG/0.5 ML INH NEB SOLN INH PRN (11:25)
[2021-12-07] MEDS ORDERED: LR 1,000 ML IV SCH (11:45)
[2021-12-07] MEDS: MORPHINE 4 MG/ML 1ML VIAL/SYRINGE IV PRN ×4 (11:48→12:25)
[2021-12-07] MEDS: ACETAMINOPHEN TAB 650MG DOSE (2X325MG) PO SCH ×2 (13:10→16:32)
[2021-12-07] MEDS: INSULIN LISPRO (NovoLOG) PER UNIT SC SCH ×3 (14:17→21:00)
[2021-12-07] MEDS ORDERED: VENL75CA47 PO (14:41)
[2021-12-07] MEDS ORDERED: MONT10TA97 PO (14:41)
[2021-12-07] MEDS ORDERED: HOME MED LIST COMPLETE! XX SCH (14:45)
[2021-12-07] MEDS: LR 1,000 ML IV SCH ×2 (15:39→20:26)
[2021-12-07] MEDS: ceFAZolin SOD 2 GM in IV 1 EA IV SCH (15:40)
[2021-12-07] MEDS: ONDANSETRON 4MG/2ML VIAL IV PRN (15:40)
[2021-12-07] MEDS ORDERED: NORCO, ANEXSIA 5/325MG TABLET (HYDROcodone/ACETAMINOPHEN) PO PRN (18:10)
[2021-12-07] MEDS: DOCUSATE SODIUM 100MG CAPSULE PO SCH (20:23)
[2021-12-07] MEDS: NORCO, ANEXSIA 5/325MG TABLET (HYDROcodone/ACETAMINOPHEN) PO PRN (20:25)
[2021-12-08] MEDS: NORCO, ANEXSIA 5/325MG TABLET (HYDROcodone/ACETAMINOPHEN) PO PRN ×5 (00:21→20:03)
[2021-12-08] MEDS: ceFAZolin SOD 2 GM in IV 1 EA IV SCH (00:21)
[2021-12-08 01:10] VITALS: BP 124/77
[2021-12-08] MEDS ORDERED: MORPHINE 4 MG/ML 1ML VIAL/SYRINGE IV ONE (01:40)
[2021-12-08 04:44] VITALS: BP 119/76
[2021-12-08 05:49] LABS: BASO % 0.3 % (0.0-1.0); EOS # 0.1 10^3/uL (0.0-0.5); EOS % 0.8 % (0.0-3.0); HEMATOCRIT 34.7 % (36.0-47.0); HEMOGLOBIN 11.8 g/dl (12.0-15.5); LYMPH # 2.5 10^3/uL (1.5-5.0); LYMPH % 21.2 % (24.0-44.0); MEAN CORPUSCULAR HEMOGLOBIN 31.1 pg (27.0-33.0); MEAN CORPUSCULAR VOLUME 91.6 fl (80.0-96.0); MONO # 1.2 10^3/uL (0.0-0.8); MONO % 10.5 % (2.0-8.0); NEUTROPHILS # 7.9 10^3/uL (1.5-8.5); NEUTROPHILS % 66.9 % (36.0-66.0); PLATELET COUNT, AUTOMATED 340 10^3/uL (150-450); RED BLOOD COUNT 3.79 10^6/uL (4.00-5.40); WHITE BLOOD COUNT 11.8 10^3/uL (4.0-10.0)
[2021-12-08] MEDS: ONDANSETRON 4MG/2ML VIAL IV PRN ×2 (06:08→14:51)
[2021-12-08 06:11] LABS: BLOOD UREA NITROGEN 10 MG/DL (7-18); CALCIUM LEVEL 8.5 MG/DL (8.8-10.2); CARBON DIOXIDE LEVEL 32 MEQ/L (21-32); CHLORIDE LEVEL 103 MEQ/L (98-107); CREATININE FOR GFR 0.69 MG/DL (0.55-1.30); GLOMERULAR FILTRATION RATE > 60.0 (>45); GLUCOSE, FASTING 106 MG/DL (70-100); POTASSIUM SERUM 3.9 MEQ/L (3.5-5.1); SODIUM LEVEL 139 MEQ/L (136-145)
[2021-12-08] MEDS: LR 1,000 ML IV SCH ×2 (06:55→16:51)
[2021-12-08] MEDS: INSULIN LISPRO (NovoLOG) PER UNIT SC SCH ×4 (07:30→21:00)
[2021-12-08] MEDS: lisinopriL 40MG TAB PO SCH (08:11)
[2021-12-08] MEDS: OMEPRAZOLE 20MG CAP PO SCH (08:11)
[2021-12-08] MEDS: VENLAFAXINE **XR** 75MG CAPSULE PO SCH (08:11)
[2021-12-08] MEDS: MONTELUKAST 10 MG TAB PO SCH (08:12)
[2021-12-08] MEDS: FERROUS SULFATE 325MG TAB PO SCH (08:13)
[2021-12-08] MEDS: DOCUSATE SODIUM 100MG CAPSULE PO SCH ×3 (08:13→21:00)
[2021-12-08] MEDS: ASCORBIC ACID 500 MG TAB PO SCH (08:13)
[2021-12-08] MEDS ORDERED: VENLAFAXINE **XR** 75MG CAPSULE PO SCH (09:00)
[2021-12-08] MEDS: BACLOFEN 5MG PER 1/2 TABLET PO SCH ×3 (09:09→20:03)
[2021-12-08 10:00] VITALS: BP 123/79
[2021-12-08 14:00] VITALS: BP 126/72
[2021-12-08] MEDS: RIVAROXABAN 10 MG TAB (XARELTO) PO SCH (17:29)
[2021-12-08] MEDS: traZODone 100 MG TAB PO PRN (21:45)
[2021-12-08 22:00] VITALS: BP 131/81
[2021-12-09] MEDS: NORCO, ANEXSIA 5/325MG TABLET (HYDROcodone/ACETAMINOPHEN) PO PRN ×4 (02:19→22:30)
[2021-12-09] MEDS: ONDANSETRON 4MG/2ML VIAL IV PRN ×2 (02:19→17:51)
[2021-12-09] MEDS: LR 1,000 ML IV SCH ×2 (02:55→12:35)
[2021-12-09 06:00] VITALS: BP 109/67
[2021-12-09] MEDS ORDERED: MIRALAX *UNIT DOSE* 17GM PACKET PO PRN (07:30)
[2021-12-09] MEDS: INSULIN LISPRO (NovoLOG) PER UNIT SC SCH (07:30)
[2021-12-09] MEDS ORDERED: FLEET ENEMA PR PRN (07:30)
[2021-12-09] MEDS ORDERED: ALBUTEROL 90 MCG/ACT 8GM HFA INHALER INH PRN (07:30)
[2021-12-09] MEDS ORDERED: MOM 30ML SUSPENSION UDC PO PRN (07:30)
[2021-12-09 08:05] LABS: BASO % 0.3 % (0.0-1.0); EOS # 0.1 10^3/uL (0.0-0.5); EOS % 0.7 % (0.0-3.0); HEMATOCRIT 34.9 % (36.0-47.0); HEMOGLOBIN 12.1 g/dl (12.0-15.5); LYMPH # 2.1 10^3/uL (1.5-5.0); LYMPH % 18.2 % (24.0-44.0); MEAN CORPUSCULAR HEMOGLOBIN 31.8 pg (27.0-33.0); MEAN CORPUSCULAR HGB CONC 34.7 g/dl (32.0-36.5); MEAN CORPUSCULAR VOLUME 91.8 fl (80.0-96.0); MONO # 1.2 10^3/uL (0.0-0.8); MONO % 10.3 % (2.0-8.0); NEUTROPHILS # 8.1 10^3/uL (1.5-8.5); NEUTROPHILS % 70.1 % (36.0-66.0); PLATELET COUNT, AUTOMATED 338 10^3/uL (150-450); WHITE BLOOD COUNT 11.5 10^3/uL (4.0-10.0)
[2021-12-09 08:24] LABS: BLOOD UREA NITROGEN 8 MG/DL (7-18); CALCIUM LEVEL 8.8 MG/DL (8.8-10.2); CARBON DIOXIDE LEVEL 33 MEQ/L (21-32); CHLORIDE LEVEL 103 MEQ/L (98-107); CREATININE FOR GFR 0.58 MG/DL (0.55-1.30); GLOMERULAR FILTRATION RATE > 60.0 (>45); GLUCOSE, FASTING 112 MG/DL (70-100); MAGNESIUM LEVEL 2.1 MG/DL (1.8-2.4); POTASSIUM SERUM 3.7 MEQ/L (3.5-5.1); SODIUM LEVEL 138 MEQ/L (136-145)
[2021-12-09] MEDS: SENOKOT S TAB PO PRN (08:56)
[2021-12-09] MEDS: OMEPRAZOLE 20MG CAP PO SCH (08:56)
[2021-12-09] MEDS: BACLOFEN 5MG PER 1/2 TABLET PO SCH ×3 (08:57→19:56)
[2021-12-09] MEDS: VENLAFAXINE **XR** 75MG CAPSULE PO SCH (08:57)
[2021-12-09] MEDS: MONTELUKAST 10 MG TAB PO SCH (08:57)
[2021-12-09] MEDS: FERROUS SULFATE 325MG TAB PO SCH (08:59)
[2021-12-09] MEDS: lisinopriL 40MG TAB PO SCH (08:59)
[2021-12-09] MEDS: ASCORBIC ACID 500 MG TAB PO SCH (08:59)
[2021-12-09 14:00] VITALS: BP 117/69
[2021-12-09] MEDS: RIVAROXABAN 10 MG TAB (XARELTO) PO SCH (17:44)
[2021-12-09 22:00] VITALS: BP 100/51
[2021-12-09] MEDS: traZODone 100 MG TAB PO PRN (22:30)
[2021-12-10] MEDS: ONDANSETRON 4MG/2ML VIAL IV PRN (03:27)
[2021-12-10] MEDS: NORCO, ANEXSIA 5/325MG TABLET (HYDROcodone/ACETAMINOPHEN) PO PRN ×2 (03:27→09:23)
[2021-12-10 06:00] VITALS: BP 102/63
[2021-12-10 06:55] LABS: BASO # 0.1 10^3/uL (0.0-0.2); BASO % 0.6 % (0.0-1.0); EOS # 0.1 10^3/uL (0.0-0.5); EOS % 1.3 % (0.0-3.0); HEMATOCRIT 33.8 % (36.0-47.0); HEMOGLOBIN 11.4 g/dl (12.0-15.5); LYMPH # 1.8 10^3/uL (1.5-5.0); LYMPH % 16.8 % (24.0-44.0); MEAN CORPUSCULAR HEMOGLOBIN 31.2 pg (27.0-33.0); MEAN CORPUSCULAR HGB CONC 33.7 g/dl (32.0-36.5); MEAN CORPUSCULAR VOLUME 92.6 fl (80.0-96.0); MONO # 0.9 10^3/uL (0.0-0.8); MONO % 8.4 % (2.0-8.0); NEUTROPHILS # 7.9 10^3/uL (1.5-8.5); NEUTROPHILS % 72.4 % (36.0-66.0); PLATELET COUNT, AUTOMATED 336 10^3/uL (150-450); RED BLOOD COUNT 3.65 10^6/uL (4.00-5.40); WHITE BLOOD COUNT 10.9 10^3/uL (4.0-10.0)
[2021-12-10 07:17] LABS: BLOOD UREA NITROGEN 9 MG/DL (7-18); CALCIUM LEVEL 8.8 MG/DL (8.8-10.2); CARBON DIOXIDE LEVEL 33 MEQ/L (21-32); CHLORIDE LEVEL 104 MEQ/L (98-107); CREATININE FOR GFR 0.56 MG/DL (0.55-1.30); GLOMERULAR FILTRATION RATE > 60.0 (>45); GLUCOSE, FASTING 115 MG/DL (70-100); MAGNESIUM LEVEL 2.1 MG/DL (1.8-2.4); POTASSIUM SERUM 3.6 MEQ/L (3.5-5.1); SODIUM LEVEL 140 MEQ/L (136-145)
[2021-12-10] MEDS: FERROUS SULFATE 325MG TAB PO SCH ×2 (09:00→09:23)
[2021-12-10] MEDS: lisinopriL 40MG TAB PO SCH (09:00)
[2021-12-10] MEDS: ASCORBIC ACID 500 MG TAB PO SCH ×2 (09:00→09:23)
[2021-12-10] MEDS: SENOKOT S TAB PO PRN (09:22)
[2021-12-10] MEDS: VENLAFAXINE **XR** 75MG CAPSULE PO SCH (09:22)
[2021-12-10] MEDS: OMEPRAZOLE 20MG CAP PO SCH (09:22)
[2021-12-10] MEDS: BACLOFEN 5MG PER 1/2 TABLET PO SCH (09:22)
[2021-12-10] MEDS: MONTELUKAST 10 MG TAB PO SCH (09:23)
[2021-12-10] MEDS ORDERED: BACL10TA2 PO (09:50)
[2021-12-10] MEDS ORDERED: XARE10TA PO (09:50)
[2021-12-10] MEDS ORDERED: FERR1TAB8 PO (09:50)
[2021-12-10] MEDS ORDERED: MIRA1POW3 PO (09:50)
[2021-12-10] MEDS ORDERED: HYDR-3715 PO (09:50)
[2021-12-10] MEDS ORDERED: ASCO50TA PO (09:50)
== END 2021-12-10 15:15 | disposition home health service (06) | DRG 470 ==
LOC: M SDC 06:07 → M ED INP 06:08 → OBSVTOIN 12:34 → M MS5PR 13:10 → OBSVTOIN 12-08 12:34 → INTOOBSV 12-08 12:34
PROVIDERS: ADMIT Internal Medicine; ATTEND Orthopaedic Surgery Adult Reconstructive Orthopaedic Surgery
PROC: 8E0Y0CZ Robotic Assisted Procedure of Lower Extremity, Open Approach (ICD-10-PCS; 2021-12-07)
PROC: 0SR903A Replacement of Right Hip Joint with Ceramic Synthetic Substitute, Uncemented, Open Approach (ICD-10-PCS; principal; 2021-12-07 07:30)
DX: M16.11 Unilateral primary osteoarthritis, right hip (principal); I10 Essential (primary) hypertension; D72.829 Elevated white blood cell count, unspecified; E11.9 Type 2 diabetes mellitus without complications; F32.A Depression, unspecified; F17.210 Nicotine dependence, cigarettes, uncomplicated; F43.10 Post-traumatic stress disorder, unspecified; K59.00 Constipation, unspecified; J44.9 Chronic obstructive pulmonary disease, unspecified; M54.9 Dorsalgia, unspecified; F41.9 Anxiety disorder, unspecified; K21.9 Gastro-esophageal reflux disease without esophagitis; Z79.51 Long term (current) use of inhaled steroids; Z79.899 Other long term (current) drug therapy; Z88.8 Allergy status to other drugs, medicaments and biological substances

== ENCOUNTER → 2021-12-21 | Outpatient (CLI) | payer MEDICARE, OTHER ==
[~2021-12-21] MED LIST changes: -ACETAMINOPHEN 500 MG TAB PO ONE; +ASCO50TA PO; +BACL10TA2 PO; +FERR1TAB8 PO; +MIRA1POW3 PO; -NS 1,000 ML IV ONE; -ROPIVA 125MG/EPINEPH 0.25MG/CLONID 40MCG IN NS 50ML SYRINGE PA ONE; +VENL75CA47 PO; +XARE10TA PO; -ceFAZolin SOD 2 GM in IV 1 EA IV ONE; -dexameTHASONE 4 MG/ML 1ML VIAL (J1100 PER 1MG) IV ONE
== END ==
LOC: M SOG 09:42
PROVIDERS: ATTEND Orthopaedic Surgery Adult Reconstructive Orthopaedic Surgery
DX: Z96.641 Presence of right artificial hip joint (principal); M51.36 Other intervertebral disc degeneration, lumbar region; M16.12 Unilateral primary osteoarthritis, left hip

== ENCOUNTER → 2022-09-29 | Outpatient (CLI) | payer MEDICARE, OTHER ==
[~2022-09-29] MED LIST changes: +ALBU2.5V10 INH; -ALBU83IN INH
== END ==
LOC: M SOG 08:13
PROVIDERS: ATTEND Orthopaedic Surgery Adult Reconstructive Orthopaedic Surgery
DX: M25.552 Pain in left hip (principal); Z53.8 Procedure and treatment not carried out for other reasons

== ENCOUNTER → 2022-11-12 | Outpatient (CLI) | payer MEDICARE, OTHER ==
[~2022-11-12] MED LIST changes: +MONT-5 PO; -SING10TA32 PO
== END ==
LOC: M SOG 11:20
PROVIDERS: ATTEND Orthopaedic Surgery Adult Reconstructive Orthopaedic Surgery
DX: M25.552 Pain in left hip (principal); M85.852 Other specified disorders of bone density and structure, left thigh; Z96.641 Presence of right artificial hip joint; M16.12 Unilateral primary osteoarthritis, left hip

== ENCOUNTER → 2023-03-11 | Outpatient (CLI) | payer MEDICARE | LOC: M PLAIMG 13:26 | PROVIDERS: ATTEND Orthopaedic Surgery | DX: M16.12 Unilateral primary osteoarthritis, left hip (principal) ==